=== PATIENT | female | born 1945 | race Caucasian/White ===

== ENCOUNTER → 2016-12-07 | Outpatient (CLI) | payer MEDICARE ==
[2016-12-07 12:03] LABS: EKG EKG PERFORMED
--- NOTE | 2016-12-07 12:13 | XR ---
EXAMINATION TYPE: XR chest 2V DATE OF EXAM: 12/07/2016 11:56 AM COMPARISON: 03/02/2016 INDICATION: Presurgical clearance TECHNIQUE: Single frontal view of the chest is obtained. FINDINGS: The heart size is normal. The pulmonary vasculature is normal. The lungs are clear. IMPRESSION: 1. No acute pulmonary process.
[2016-12-07 12:34] LABS: Appearance,Urine Cloudy (Clear); Bacteria,Urine Rare /hpf; Bilirubin,Urine Negative (Negative); Glucose,Urine (UA) 3+ (Negative); Ketones,Urine Negative (Negative); Leukocyte Esterase,Urine Moderate (Negative); Mucus,Urine Few /hpf; Nitrite,Urine Positive (Negative); Particle Count 27212; Protein,Urine Trace (Negative); RBC,Urine 1 /hpf (0-5); Specific Gravity,Urine 1.023 (1.001-1.035); Squamous Epithelial Cell,Urine 2 /hpf (0-4); UA Billing (MACRO vs. MICRO) MICRO; Urobilinogen,Urine <2.0 mg/dL (<2.0); WBC,Urine 22 /hpf (0-5)
[2016-12-07 12:40] LABS: Partial Thromboplastin Time 24.9 sec (22.0-30.0); Prothrombin Time 10.5 sec (9.0-12.0)
[2016-12-07 12:43] LABS: Basophils # (A) 0.1 k/uL (0-0.2); Basophils % (A) 1 %; CH 31.6; CHCM 32.9; Eosinophils # (A) 0.1 k/uL (0-0.7); Eosinophils % (A) 2 %; HCT 39.8 % (34.0-46.0); HDW 2.25; Luc # (Auto) 0.15; Luc % (Auto) 3; Lymphocytes # (A) 1.4 k/uL (1.0-4.8); Lymphocytes % (A) 29 %; MCH 31.4 pg (25.0-35.0); MCHC 32.6 g/dL (31.0-37.0); MCV 96.5 fL (80.0-100.0); Mean Platelet Volume 6.9; Monocytes # (A) 0.3 k/uL (0-1.0); Monocytes % (A) 6 %; Neutrophils # (A) 2.9 k/uL (1.3-7.7); Neutrophils % (A) 59 %; RBC 4.13 m/uL (3.80-5.40); RDW 12.9 % (11.5-15.5)
[2016-12-07 12:45] LABS: ALT 44 U/L (9-52); AST 28 U/L (14-36); Alkaline Phosphatase 103 U/L (38-126); Anion Gap 9 mmol/L; Blood Urea Nitrogen 23 mg/dL (7-17); Calcium 9.4 mg/dL (8.4-10.2); Carbon Dioxide 28 mmol/L (22-30); Chloride 102 mmol/L (98-107); Glucose 204 mg/dL (74-99); Non-African American GFR(MDRD) >60 (>60 ml/min/1.73 sqM); Potassium 4.5 mmol/L (3.5-5.1); Sodium 139 mmol/L (137-145); Total Bilirubin 0.6 mg/dL (0.2-1.3)
== END ==
LOC: RADXRMAIN 11:32
PROVIDERS: ATTEND Nurse Practitioner
DX: Z01.818 Encounter for other preprocedural examination (principal)
CPT/HCPCS: 36415; 71020; 80053; 81001; 85025; 85610; 85730; 93005

== ENCOUNTER 2017-03-11 21:46 | Emergency (ER) | payer MEDICARE ==
[2017-03-11 21:57] VITALS: RESP 18
[2017-03-11] MEDS ORDERED: HYDROcodone/APAP 5-325MG 1 EACH TAB PO STA (22:14)
--- NOTE | 2017-03-11 22:30 | ED ---
Fall HPI - General Chief Complaint: Fall Stated Complaint: L arm laceration Time Seen by Provider: 03/11/17 21:58 Source: patient Mode of arrival: ambulatory - History of Present Illness Initial Comments: 71-year-old female patient presents to emergency department today for evaluation after she explains a fall around 14:30 this afternoon. Patient is complaining of a laceration to her left elbow that won't stop bleeding, as well as some left shoulder, elbow, and upper back pain. Patient states that she slipped and fell in the shower hitting her elbow on the side of the tub. Patient states that she is achy all over. Patient states she did hit her head but denies any loss of consciousness. Patient denies any headache, dizziness, weakness ,blurred or double vision, neck pain, chest pain, shortness of breath, no pain with breathing, abdominal pain, nausea, or vomiting. Patient denies any loss of bowel or bladder control, saddle paresthesia, numbness or tingling in her legs. Patient did have lumbar surgery on December 14. Patient states she is having some lower back pain but states it is no different than usual. - Related Data Home Medications Medication Instructions Recorded Confirmed Ibuprofen [Motrin] 400 mg PO Q6HR PRN 04/20/14 04/20/14 Levothyroxine Sodium [Synthroid] 88 mcg PO DAILY 04/20/14 04/20/14 Lisinopril [Zestril] 20 mg PO DAILY 04/20/14 04/20/14 Multivitamins, Thera [Multivitamin] 1 each PO DAILY@1200 04/20/14 04/20/14 Oxybutynin Chloride [Ditropan XL] 15 mg PO DAILY 04/20/14 04/20/14 Raloxifene [Evista] 60 mg PO DAILY 04/20/14 04/20/14 glipiZIDE XL [Glucotrol XL] 20 mg PO DAILY 04/20/14 04/20/14 traZODone HCL [Desyrel] 50 mg PO BID 04/20/14 04/20/14 Previous Rx's Medication Instructions Recorded HYDROcodone/APAP 5-325MG [Embarrass 5] 1 each PO Q6HR PRN #10 tab 03/11/17 Allergies Allergy/AdvReac Type Severity Reaction Status Date / Time metformin Allergy Unknown Verified 03/11/17 21:56 Sulfa (Sulfonamide Allergy Anaphylaxis Verified 03/11/17 21:56 Antibiotics) Review of Systems ROS Statement: Those systems with pertinent positive or pertinent negative responses have been documented in the HPI. ROS Other: All systems not noted in ROS Statement are negative. Past Medical History Past Medical History: Diabetes Mellitus, Hyperlipidemia, Hypertension History of Any Multi-Drug Resistant Organisms: None Reported Past Surgical History: Back Surgery Additional Past Surgical History / Comment(s): Tubal ligation Past Psychological History: No Psychological Hx Reported Smoking Status: Never smoker Past Alcohol Use History: None Reported Past Drug Use History: None Reported General Exam Limitations: no limitations General appearance: alert, in no apparent distress Head exam: Present: atraumatic, normocephalic, normal inspection Eye exam: Present: normal appearance, PERRL, EOMI. Absent: scleral icterus, conjunctival injection, periorbital swelling ENT exam: Present: normal exam, mucous membranes moist Neck exam: Present: normal inspection. Absent: tenderness, meningismus, lymphadenopathy Respiratory exam: Present: normal lung sounds bilaterally. Absent: respiratory distress, wheezes, rales, rhonchi, stridor Cardiovascular Exam: Present: regular rate, normal rhythm, normal heart sounds. Absent: systolic murmur, diastolic murmur, rubs, gallop, clicks GI/Abdominal exam: Present: soft, normal bowel sounds. Absent: distended, tenderness, guarding, rebound, rigid Extremities exam: Present: full ROM, tenderness (Left shoulder tenderness, left elbow tenderness.), normal capillary refill. Absent: normal inspection (Linear 2cm laceration noted to the extensor surface of the left elbow), joint swelling Back exam: Present: normal inspection, tenderness (Tenderness noted to the right if the upper thoracic spine) Neurological exam: Present: alert, oriented X3, CN II-XII intact Psychiatric exam: Present: normal affect, normal mood Skin exam: Present: warm, dry, intact, normal color. Absent: rash Course Vital Signs 03/11/17 03/11/17 21:52 23:07 Temperature 98.1 F 97.9 F Pulse Rate 93 74 Respiratory 18 18 Rate Blood Pressure 156/71 149/67 O2 Sat by Pulse 96 96 Oximetry Procedures - Laceration Laceration #1 Consent Obtained: verbal consent Time Out Performed: Yes Indication: laceration Site: upper extremity (Extensor surface of the elbow) Size (cm): 2 Description: linear Depth: simple, single layer Anesthetic Used: lidocaine 1% Anesthesia Technique: local infiltration Amount (mls): 3 Pre-repair: irrigated extensively Type of Sutures: nylon Size of Sutures: 4-0 Number of Sutures: 3 Technique: simple, interrupted Patient Tolerated Procedure: well Medical Decision Making - Medical Decision Making 71-year-old female patient presents to emergency department today for evaluation after a fall in her shower. X-rays of thoracic spine, left shoulder , and left elbow revealed no acute osseous abnormalities. 3 stitches were placed to the laceration her left elbow. Patient instructed regarding wound care. Patient instructed to return for any signs or symptoms of infection. Patient instructed to return for any new, worsening, or concerning symptoms. Patient verbalizes understanding and agrees this plan. - Radiology Data Radiology results: report reviewed, image reviewed Thoracic spine x-ray reveals dextrocardia which are of the midthoracic spine with levocurvature of the thoracolumbar spine. Partially imaged postsurgical changes in the lumbar spine are noted. Vertebral body height and alignment are otherwise maintained. Mild to moderate thoracic spondylosis is noted. Normal osseous mineralization. The visualized lungs are clear. Cardiac silhouette appears enlarged. Aorta appears tortuous. Impression by Dr. Hansen reveals no acute osseous abnormality. 3 views of the left shoulder reveal no acute fracture dislocation. Normal osseous mineralization. Mild glenohumeral osteoporosis. Mouth acromioclavicular osteoarthritis with marked undersurface spurring of the acromion. Subcentimeter osteochondral loose bodies present along the posterior glenohumeral joint. Soft tissue structures are unremarkable. Impression by Dr. Hansen reveals no acute osseous abdomen only. Three-view x-ray of the left elbow reveals negative for fracture dislocation, normal osseous mineralization. No significant joint effusion. Olecranon and the Zofran is noted. Soft tissue swelling posterior elbow is noted. Impression by Dr. Hansen reveals no radiographic evidence of an acute fracture or dislocation. Disposition Clinical Impression: Elbow laceration, Contusion, Fall Disposition: HOME SELF-CARE Condition: Good Instructions: Care For Your Stitches (ED), Laceration (ED), Fall Prevention for Older Adults (ED) Additional Instructions: Apply ice to painful areas. Return in 7-10 days for suture removal. Keep area clean and dry. Do not submerge in water including bath tubs, latex, and pools. Return for any signs or symptoms of infections including but not limited to redness, swelling, drainage of pus, fever, or chills. Follow-up with primary care physician in one to 2 days for recheck. Return for any new, worsening, or concerning symptoms. Prescriptions: HYDROcodone/APAP 5-325MG [Embarrass 5] 1 each PO Q6HR PRN #10 tab PRN Reason: Pain Referrals: Tina Quesada MD [Primary Care Provider] - 1-2 days Time of Disposition: 23:22
--- NOTE | 2017-03-11 23:08 | XR ---
EXAM: Left elbow, 3 views. INDICATION: 71-year-old female with pain. COMPARISON: None. FINDINGS: 3 views of the left elbow are negative for fracture dislocation. Normal osseous mineralization. No significant joint effusion. Olecranon enthesophyte is noted. Soft tissue swelling posterior elbow is noted. IMPRESSION: 1. No radiographic evidence of an acute fracture or dislocation. 2. Soft tissue swelling posterior elbow.
[2017-03-11 23:09] VITALS: BP 149/67; PULSE 74; TEMP 97.9
--- NOTE | 2017-03-11 23:10 | XR ---
EXAM: XR T SPINE INDICATION: 71-year-old female with pain after fall. COMPARISON: None. FINDINGS: 3 views of thoracic spine are negative for fracture dislocation. There is dextrocurvature of the midthoracic spine with levocurvature of the thoracolumbar spine. Partially imaged postsurgical changes in the lumbar spine are noted. Vertebral body height and alignment are otherwise maintained. [id number] thoracic spondylosis is noted. Normal osseous mineralization. The visualized lungs are clear. Cardiac silhouette appears enlarged. Aorta appears tortuous. IMPRESSION: 1. No acute osseous abnormality. 2. Additional findings above.
--- NOTE | 2017-03-11 23:13 | XR ---
EXAM: XR LEFT SHOULDER, 3 views INDICATION: 71-year-old female with pain after fall. COMPARISON: None. FINDINGS: No acute fracture or dislocation. Normal osseous mineralization. Mild glenohumeral osteoporosis. Mild acromioclavicular osteoarthritis with marked undersurface spurring of the acromion. Subcentimeter osteochondral loose bodies present along the posterior glenohumeral joint. Soft tissue structures are unremarkable. IMPRESSION: 1. No acute osseous abnormality. 2. Additional findings above.
== END 2017-03-11 23:45 | disposition home or self-care (01) ==
LOC: EC 21:46
DX: S51.012A Laceration without foreign body of left elbow, initial encounter (principal); M25.512 Pain in left shoulder; M54.6 Pain in thoracic spine; E11.9 Type 2 diabetes mellitus without complications; I10 Essential (primary) hypertension; Z88.2 Allergy status to sulfonamides; Z88.8 Allergy status to other drugs, medicaments and biological substances; Z79.84 Long term (current) use of oral hypoglycemic drugs; Z79.899 Other long term (current) drug therapy; W01.10XA Fall on same level from slipping, tripping and stumbling with subsequent striking against unspecified object, initial encounter; Y93.E1 Activity, personal bathing and showering; Y92.002 Bathroom of unspecified non-institutional (private) residence as the place of occurrence of the external cause
CPT/HCPCS: 12001; 72072; 99283

== ENCOUNTER 2017-05-30 08:07 | Day surgery (SDC) | payer MEDICARE ==
[2017-05-26 13:54] VITALS: BMI 38.9
[~2017-05-30 08:07] MED LIST: LACTATED RINGERS 1,000 ML IV SCH
[2017-05-30 08:36] LABS: Glucose,Whole Blood 292 mg/dL (75-99)
[2017-05-30 08:40] VITALS: TEMP 97.6
[2017-05-30] MEDS ORDERED: LIDOCAINE 1% 20 ML VIAL (10MG/ML) FOR IV START INTRADERMA ONE (08:46)
[2017-05-30] MEDS ORDERED: LABETALOL 5 MG/ML VIAL MDV ONE (09:17)
[2017-05-30] MEDS ORDERED: PROPOFOL 10 MG/ML 20 ML VIAL IV ONE (09:17)
[2017-05-30] MEDS ORDERED: MIDAZOLAM 2 MG/2 ML VIAL ONE (09:17)
[2017-05-30] MEDS ORDERED: LIDOCAINE 1% INJ 10MG/ML (20 ML MDV) ONE (09:17)
--- NOTE | 2017-05-30 09:52 | P.PCN ---
Date of Procedure: 05/30/17 Procedure(s) Performed: Procedure: Colonoscopy and biopsy. Preoperative diagnosis: Screening for neoplasia. Postoperative diagnosis: 1. Sigmoid diverticulosis with no evidence of acute diverticulitis or strictures. 2. Diminutive polyp sigmoid biopsied but no large polyps or cancer. Preparation: HalfLytely prep. Sedation: Was provided by anesthesia. Brief clinical history: The patient is a 71-year-old female who is scheduled for this evaluation for screening for neoplasia. She has no abdominal complaints, bleeding or anemia. No family history of colon cancer. Procedure: With the patient on her left lateral decubitus position and after informed consent and adequate sedation, the perianal area was inspected and it did not show any fissures or fistulas. There were no masses felt on digital rectal examination. The Olympus CFQ 160L video colonoscope was then inserted in the rectum in the usual fashion and advanced to the cecum. There were several diverticular orifices seen scattered in the sigmoid but there was no evidence of acute diverticulitis or strictures. There was a diminutive polyp in the midsigmoid which I biopsied but there were no large polyps or cancer. I retroflexed the endoscope in the rectum before the endoscope was withdrawn. The patient tolerated the procedure well. Plan: The patient was reassured. Discussed dietary measures. She will follow- up with you as planned and I recommended repeat exam in around 5 years.
[2017-05-30 09:54] VITALS: PULSE 83; RESP 20
[2017-05-30 10:28] VITALS: BP 143/85
== END 2017-05-30 10:40 | disposition home or self-care (01) ==
LOC: ORWHC2ENDO 08:07
DX: Z12.11 Encounter for screening for malignant neoplasm of colon (principal); D12.5 Benign neoplasm of sigmoid colon; K57.30 Diverticulosis of large intestine without perforation or abscess without bleeding; I10 Essential (primary) hypertension; E11.9 Type 2 diabetes mellitus without complications; E07.9 Disorder of thyroid, unspecified; Z79.84 Long term (current) use of oral hypoglycemic drugs; Z79.1 Long term (current) use of non-steroidal anti-inflammatories (NSAID); Z79.899 Other long term (current) drug therapy; Z88.2 Allergy status to sulfonamides; Z88.8 Allergy status to other drugs, medicaments and biological substances; Z91.040 Latex allergy status
CPT/HCPCS: 45380; 88305; J2250; J2001; J2704

== ENCOUNTER → 2017-10-26 | Outpatient (CLI) | payer MEDICARE ==
--- NOTE | 2017-10-26 13:54 | BD ---
EXAMINATION TYPE: MG DEXA axial skeleton. DATE OF EXAM: 10/26/2017 CLINICAL HISTORY: Height: 56.5 inches Weight: 170 FRAX RISK QUESTIONS: Alcohol (3 or more units per day): no Family History (Parent hip fracture): Glucocorticoids (More than 3mos): no (Ex: prednisone, prednisolone, methylprednisolone, dexamethasone, and hydrocortisone). History of Fracture in Adulthood: toes Secondary Osteoporosis: 1. Type 1 Diabetes: no, type II 2. Hyperthyroidism: unsure 3. Menopause before 45: at 43 4. Malnutrition: no 5. Chronic liver disease: no Rheumatoid Arthritis: unsure Current Tobacco Use: no RISK FACTORS HISTORY OF: Surgery to Spine: "fusions" with metal hardware lower back... When: within the last year Family History of Osteoporosis: no Active: somewhat Diet low in dairy products/other sources of calcium: no Postmenopausal woman: yes Take estrogen and/or progesterone medications: not now How long: hormonal contraceptives several years Lost more than 2 inches in height since high school: possibly...patient states height was once 4ft 11 1/2 in tall Frequent falls: no; but sometimes feels unsteady Poor Health: somewhat Hyperparathyroidism: no Adrenal Insufficiency: no MEDICATIONS: Prednisone or other steroids: no Thyroid Medications: yes Which medication: Synthroid How Long: over 10 years Osteoporosis Medications: not now Which medication: Evista How Long: "quite a while" Additional Medications: diabetic meds, cholesterol meds, blood pressure meds Additional History: idiopathic scoliosis; lower back surgery, arthritis; history of back pain throug h the years...but did fall last summer EXAM MEASUREMENTS: Bone mineral densitometry was performed using the [employer] System. Bone mineral density NOT measured about the Lumbar spine because of lower back surgery. Bone mineral density about the R hip (g/cm2): 0.773 Bone mineral density about the L hip (g/cm2): 0.761 T Score values are as follows: -----R Neck: -1.9 -----L Neck: -2.0 -----R Total: -0.9 -----L Total: -1.0 Bone mineral density has: Decreased -3.8% since study of: 06/12/2013 IMPRESSION: Osteopenia (T Score between -2.5 and -1). There is slightly increased risk of fracture and the patient may be considered for treatment. Re-Screen 2-5 years. NOTE: T-SCORE=SD OF THE YOUNG ADULT MEAN.
--- NOTE | 2017-11-02 10:12 | MM ---
Reason for exam: screening (asymptomatic). Last mammogram was performed 1 year and 6 months ago. History: Patient is postmenopausal. Physical Findings: A clinical breast exam by your physician is recommended on an annual basis and results should be correlated with mammographic findings. MG Screening Mammo w CAD Bilateral CC and MLO view(s) were taken. Prior study comparison: May 10, 2016, mammogram, performed at [facility]. November 26, 2013, mammogram, performed at [facility]. There are scattered fibroglandular densities. Stable benign calcifications. There is no discrete abnormality. No significant changes when compared with prior studies. ASSESSMENT: Benign, BI-RAD 2 RECOMMENDATION: Routine screening mammogram of both breasts in 1 year.
== END | disposition home or self-care (01) ==
LOC: RADMAMWWP 11:00
PROVIDERS: ATTEND Family Medicine
DX: Z13.820 Encounter for screening for osteoporosis (principal); Z12.31 Encounter for screening mammogram for malignant neoplasm of breast; M85.80 Other specified disorders of bone density and structure, unspecified site; M41.20 Other idiopathic scoliosis, site unspecified
CPT/HCPCS: 77067; 77080

== ENCOUNTER → 2018-12-05 | Outpatient (CLI) | payer MEDICARE ==
--- NOTE | 2018-12-05 09:17 | US ---
EXAMINATION TYPE: US kidneys/renal and bladder DATE OF EXAM: 12/05/2018 COMPARISON: NONE CLINICAL HISTORY: R39.15 Urgency of urination. EXAM MEASUREMENTS: Right Kidney: 10.6 x 5.2 x 4.5 cm Left Kidney: 11.6 x 5.2 x 4.5 cm Post Void Residual Volume: Not sufficiently full to determine mL Right Kidney: No hydronephrosis or masses seen Left Kidney: No hydronephrosis or masses seen Bladder: Not fully distended. No obvious masses or pathology seen. Bilateral Jets seen: Yes Normal Post Void Residual: Unable to determine. There is no evidence for hydronephrosis at this point in time. No nephrolithiasis is seen. No elisha s are identified. The urinary bladder is anechoic but incompletely distended. IMPRESSION: Urinary bladder is incompletely distended and suboptimally evaluated. Given the patient's complaint o f urinary urgency CT urogram could be performed. No hydronephrosis or nephrolithiasis of the kidneys.
== END ==
LOC: RADUSWWP 08:28
PROVIDERS: ATTEND Family Medicine
DX: N32.89 Other specified disorders of bladder (principal)
CPT/HCPCS: 76770

== ENCOUNTER → 2019-01-11 | Outpatient (CLI) | payer MEDICARE ==
[2019-01-11 13:21] LABS: Blood Urea Nitrogen 20 mg/dL (7-17)
--- NOTE | 2019-01-11 14:52 | CT ---
EXAMINATION TYPE: CT urogram wo/w con DATE OF EXAM: 01/11/2019 HISTORY: Incontinence, Chronic UTI CT DLP: 2942mGycm Automated Exposure Control for Dose Reduction was Utilized. CONTRAST: CT scan of the abdomen and pelvis is performed without and with IV Contrast, patient injected with 10 0 ml mL of Isovue 300. COMPARISON: FINDINGS: Lung bases are clear. There is no pleural effusion. Heart size is normal. There is no pericardial eff usion. There is small hiatal hernia. Liver spleen stomach increased gallbladder appear normal. Bile ducts are not dilated. There is no adrenal mass. Noncontrast images show no renal calculus. Kidneys show satisfactory contrast opacification. There is no hydronephrosis. Ureters are not dilated . There are small left-sided renal parapelvic cysts. There is 2 cm cortical cyst posterior right kidn ey. There is no retroperitoneal adenopathy. There is no retroperitoneal adenopathy. There is no evide nce of solid renal mass. Bladder distends smoothly. There is no evidence of bladder mass. There is no evidence of pelvic mass. There are numerous diverticula in the sigmoid colon. I see no sign of diverticulitis. There is no mesenteric edema. There is no free air or ascites. Uterus is anteverted. There is small u mbilical hernia that contains fat. There is no inguinal hernia. There is posterior fusion surgery at L4-5 with metal artifact. There is no lumbar compression fractur e. There is multilevel spondylotic changes in the lumbar spine. There is 6 mm anterior subluxation of L4 in relation L5. IMPRESSION: No evidence of solid renal mass or obstruction. No atrophy seen. Bilateral renal cysts. Moderate sigmoid diverticulosis without diverticulitis. Spondylotic changes in the lumbar spine with first-degree L4-5 spondylolisthesis.
== END | disposition home or self-care (01) ==
LOC: RADCTMAIN 12:46
PROVIDERS: ATTEND Family Medicine
DX: N28.1 Cyst of kidney, acquired (principal); K57.30 Diverticulosis of large intestine without perforation or abscess without bleeding; R32 Unspecified urinary incontinence; Z87.440 Personal history of urinary (tract) infections
CPT/HCPCS: 82565; 84520; 74178; 36415; 74400; Q9967

== ENCOUNTER 2020-02-20 10:59 | Emergency (ER) | payer MEDICARE ==
--- NOTE | 2020-02-20 11:30 | ED ---
Fall HPI - General Chief Complaint: Fall Stated Complaint: Fall Time Seen by Provider: 02/20/20 11:16 Source: patient, RN notes reviewed Mode of arrival: ambulatory Limitations: physical limitation - History of Present Illness Initial Comments: This a 74-year-old female presents emergency Department with chief complaint of a fall. Patient had a mechanical fall, trip and fall 2 days ago. Patient complains of right upper arm, right hand first digit pain, left leg and foot pain. Patient relates minimally at this point states that she gets around occasionally with a walker she's had more frequent falls in which she's been evaluated for. She denies any head injury no loss conscious. Patient denies any chest pain, shortness breath, neck pain, right leg pain. - Related Data Home Medications Medication Instructions Recorded Confirmed Multivitamins, Thera [Multivitamin 1 tab PO DAILY 04/20/14 02/20/20 (formulary)] Insulin Glargine,Hum.rec.anlog 33 unit SQ DAILY 06/21/18 02/20/20 [Lantus Solostar] Lisinopril 40 mg PO DAILY 06/21/18 02/20/20 Pioglitazone [Actos] 45 mg PO DAILY 06/21/18 02/20/20 Simvastatin [Zocor] 20 mg PO HS 06/21/18 02/20/20 traZODone HCL [Desyrel] 25 mg PO HS 06/21/18 02/20/20 Donepezil [Aricept] 5 mg PO DAILY 02/20/20 02/20/20 FLUoxetine HCL [PROzac] 40 mg PO DAILY 02/20/20 02/20/20 Levothyroxine Sodium [Synthroid] 112 mcg PO DAILY 02/20/20 02/20/20 Memantine [Namenda] 10 mg PO BID 02/20/20 02/20/20 buPROPion HCL [Wellbutrin SR] 200 mg PO BID 02/20/20 02/20/20 glipiZIDE [Glucotrol] 20 mg PO AC-BID 02/20/20 02/20/20 Allergies Allergy/AdvReac Type Severity Reaction Status Date / Time latex Allergy Rash/Hives Verified 02/20/20 11:46 metformin Allergy Rash/Hives Verified 02/20/20 11:46 Sulfa (Sulfonamide Allergy Anaphylaxis Verified 02/20/20 11:46 Antibiotics) Review of Systems ROS Statement: Those systems with pertinent positive or pertinent negative responses have been documented in the HPI. ROS Other: All systems not noted in ROS Statement are negative. Past Medical History Past Medical History: Diabetes Mellitus, Hypertension, Thyroid Disorder Additional Past Medical History / Comment(s): URINARY INCONTINENCE, "cognitive decline" History of Any Multi-Drug Resistant Organisms: None Reported Past Surgical History: Back Surgery, Tubal Ligation Additional Past Surgical History / Comment(s): Tubal ligation Past Anesthesia/Blood Transfusion Reactions: No Reported Reaction Past Psychological History: No Psychological Hx Reported Smoking Status: Former smoker Past Alcohol Use History: Rare Past Drug Use History: None Reported - Past Family History Father Family Medical History: Cancer General Exam Limitations: no limitations General appearance: alert, in no apparent distress Head exam: Present: atraumatic, normocephalic, normal inspection Eye exam: Present: normal appearance, PERRL, EOMI. Absent: scleral icterus, conjunctival injection, periorbital swelling ENT exam: Present: normal exam, normal oropharynx, mucous membranes moist, TM's normal bilaterally Neck exam: Present: normal inspection, full ROM. Absent: tenderness, meningismus, lymphadenopathy Respiratory exam: Present: normal lung sounds bilaterally. Absent: respiratory distress, wheezes, rales, rhonchi, stridor Cardiovascular Exam: Present: regular rate, normal rhythm, normal heart sounds. Absent: systolic murmur, diastolic murmur, rubs, gallop, clicks Extremities exam: Present: other (Right shoulder there is mild tenderness slight decreased range of motion right arm is neurovascularly intact there is some swelling, ecchymosis to the second digit, patient does have full range of motion no tenderness of the wrist or proximal hand region left arm brace noted to left forearm otherwise neurovascular intact full range of motion tenderness to left proximal tib-fib and left foot neurovascular intact lower extremities there is moderate pedal edema which was reported chronic in nature no signs of infection open wounds.) Neurological exam: Present: alert, oriented X3, CN II-XII intact, reflexes normal. Absent: motor sensory deficit Skin exam: Present: warm, dry, intact, normal color. Absent: rash Course Vital Signs 02/20/20 11:08 Temperature 98.2 F Pulse Rate 86 Respiratory 18 Rate Blood Pressure 134/79 O2 Sat by Pulse 96 Oximetry Medical Decision Making - Medical Decision Making 74-year-old female presented for a fall x-rays reviewed and read by radiologist with no acute changes. Patient has arthritic changes, osteopenia changes. Patient will be discharged with close follow-up return parameters were discussed. Disposition Clinical Impression: Fall, Contusion of finger of right hand, Contusion of left leg Disposition: HOME SELF-CARE Condition: Stable Instructions (If sedation given, give patient instructions): Fall Prevention for Older Adults (ED), Contusion in Adults (ED) Additional Instructions: Please return to the Emergency Department if symptoms worsen or any other concerns. Is patient prescribed a controlled substance at d/c from ED?: No Referrals: Tina Quesada MD [Primary Care Provider] - 1-2 days Time of Disposition: 12:37
--- NOTE | 2020-02-20 12:20 | XR ---
EXAMINATION TYPE: XR humerus 2 views LT, XR hand complete 3 views RT DATE OF EXAM: 02/20/2020 COMPARISON: NONE HISTORY: 74-year-old female with arm and thumb pain. FINDINGS: Left humerus: Moderate degenerative change at the AC joint with joint space narrowing. No humeral sha ft fracture. No elbow joint effusion. Right hand: Moderate to severe degenerative change first CMC joint and moderate at the triscaphe join t. Osteopenia. Additional scattered moderate degenerative change along the DIP joints. No acute fract ure, subluxation or dislocation seen. IMPRESSION: 1. Left humerus: Moderate AC joint OA. No humeral shaft fracture seen. No elbow joint effusion. 2. Right hand: Moderate to severe OA at the base of the thumb. Additional osteoarthritic changes in t he DIP joints of the fingers.
--- NOTE | 2020-02-20 12:24 | XR ---
EXAMINATION TYPE: XR tibia fibula 2 views LT, XR foot complete 3 views LT DATE OF EXAM: 02/20/2020 COMPARISON: NONE HISTORY: 74-year-old female with pain FINDINGS: Tibia/fibula: Degenerative spurring and joint space narrowing medial compartment. Obliquity limits assessment of th e extensor mechanism of the knee and also for underlying knee joint effusion. Moderate-sized plantar calcaneal spur. No tibial or fibular shaft fracture identified. Ankle articulation grossly intact. Left foot: Osteopenia. No acute fracture, subluxation, or dislocation. Moderate-sized plantar calcaneal spur. Mi ld soft tissue swelling. IMPRESSION: 1. Left tibia/fibula: There seems to be some underlying osteoarthrosis of the medial compartment of t he knee. Obliquity on the lateral view does not allow for assessment of the knee extensor mechanism o r for underlying knee joint effusion. No acute osseous abnormality seen. 2. Left foot: Osteopenia. Moderate size plantar calcaneal spur. No acute osseous abnormality seen.
[2020-02-21 10:06] VITALS: BP 159/79; PULSE 71; RESP 16; TEMP 98.2
== END 2020-02-20 13:07 | disposition home or self-care (01) ==
LOC: EC 10:59
DX: S80.12XA Contusion of left lower leg, initial encounter (principal); S60.022A Contusion of left index finger without damage to nail, initial encounter; M19.012 Primary osteoarthritis, left shoulder; M19.041 Primary osteoarthritis, right hand; M85.872 Other specified disorders of bone density and structure, left ankle and foot; M25.511 Pain in right shoulder; E11.9 Type 2 diabetes mellitus without complications; I10 Essential (primary) hypertension; E07.9 Disorder of thyroid, unspecified; Z79.4 Long term (current) use of insulin; Z79.890 Hormone replacement therapy; Z79.899 Other long term (current) drug therapy; Z88.2 Allergy status to sulfonamides; Z91.040 Latex allergy status; Z88.8 Allergy status to other drugs, medicaments and biological substances; Z87.891 Personal history of nicotine dependence; W01.0XXA Fall on same level from slipping, tripping and stumbling without subsequent striking against object, initial encounter; Y92.009 Unspecified place in unspecified non-institutional (private) residence as the place of occurrence of the external cause
CPT/HCPCS: 99283

== ENCOUNTER 2021-06-12 13:25 | Observation (INO) | payer MEDICARE ==
[2021-06-12 13:57] LABS: Glucose,Whole Blood 107 mg/dL (75-99)
--- NOTE | 2021-06-12 14:10 | ED ---
General Adult HPI - General Chief complaint: Dizziness Stated complaint: Back Pain Time Seen by Provider: 06/12/21 13:30 Source: patient, family Mode of arrival: wheelchair Limitations: no limitations - History of Present Illness Initial comments: 75-year-old female past medical history of diabetes, hypertension, cognitive disorder presents to the emergency department with multiple falls and altered mental status. provides the history. States the patient has had several falls in the past couple of weeks. She fell last week and hurt her krista mbar spine. She is not evaluated and has had difficulties with ambulation due to the pain. Today the patient was getting out of the shower when she had a fall. She did hit the back of her head. Unsure if she lost consciousness. She is not any blood thinners. Denies a headache or neck pain. Continues to complain of a low back pain. feels as if she is not at her normal baseline. States that she seems a little bit slowed comparison. She denies any chest pain or shortness of breath. No visual changes. No unilateral numbness or weakness. No other alleviating, precipitating or modifying factors - Related Data Home Medications Medication Instructions Recorded Confirmed Insulin Glargine,Hum.rec.anlog 35 unit SQ DAILY 06/21/18 06/12/21 [Lantus Solostar Pen] Pioglitazone [Actos] 45 mg PO DAILY 06/21/18 06/12/21 Simvastatin [Zocor] 20 mg PO HS 06/21/18 06/12/21 traZODone HCL [Desyrel] 25 mg PO HS 06/21/18 06/12/21 FLUoxetine HCL [PROzac] 40 mg PO DAILY 02/20/20 06/12/21 Memantine [Namenda] 10 mg PO BID 02/20/20 06/12/21 buPROPion HCL [Wellbutrin SR] 200 mg PO BID 02/20/20 06/12/21 glipiZIDE [Glucotrol] 10 mg PO BID 02/20/20 06/12/21 Donepezil HCl [Aricept] 10 mg PO DAILY 06/12/21 06/12/21 Furosemide [Lasix] 40 mg PO BID 06/12/21 06/12/21 Levothyroxine Sodium [Synthroid] 125 mcg PO DAILY 06/12/21 06/12/21 Losartan Potassium [Cozaar] 100 mg PO DAILY 06/12/21 06/12/21 Mirabegron [Myrbetriq] 50 mg PO DAILY 06/12/21 06/12/21 Previous Rx's Medication Instructions Recorded Cephalexin [Keflex] 500 mg PO Q12HR 14 Days #7 cap 06/16/21 INSULIN ASPART (NovoLOG) [NovoLOG 0 unit SQ ACHS ml 06/16/21 (formulary)] Allergies Allergy/AdvReac Type Severity Reaction Status Date / Time latex Allergy Rash/Hives Verified 06/12/21 13:28 metformin Allergy Rash/Hives Verified 06/12/21 13:28 Sulfa (Sulfonamide Allergy Anaphylaxis Verified 06/12/21 13:28 Antibiotics) Review of Systems ROS Statement: Those systems with pertinent positive or pertinent negative responses have been documented in the HPI. ROS Other: All systems not noted in ROS Statement are negative. Past Medical History Past Medical History: Diabetes Mellitus, Hypertension, Thyroid Disorder Additional Past Medical History / Comment(s): URINARY INCONTINENCE, "cognitive disorder" History of Any Multi-Drug Resistant Organisms: None Reported Past Surgical History: Back Surgery, Tubal Ligation Additional Past Surgical History / Comment(s): Tubal ligation Past Anesthesia/Blood Transfusion Reactions: No Reported Reaction Past Psychological History: No Psychological Hx Reported Smoking Status: Never smoker Past Alcohol Use History: None Reported Past Drug Use History: None Reported - Past Family History Father Family Medical History: Cancer General Exam Limitations: altered mental status (dementia) General appearance: alert, in no apparent distress Head exam: Present: atraumatic, normocephalic, normal inspection Eye exam: Present: normal appearance, PERRL, EOMI. Absent: scleral icterus, conjunctival injection, periorbital swelling ENT exam: Present: normal exam, mucous membranes moist Neck exam: Present: normal inspection. Absent: tenderness, meningismus, lymphadenopathy Respiratory exam: Present: normal lung sounds bilaterally. Absent: respiratory distress, wheezes, rales, rhonchi, stridor Cardiovascular Exam: Present: regular rate, normal rhythm, normal heart sounds. Absent: systolic murmur, diastolic murmur, rubs, gallop, clicks GI/Abdominal exam: Present: soft, normal bowel sounds. Absent: distended, tende rness, guarding, rebound, rigid Extremities exam: Present: normal inspection, full ROM, normal capillary refill, pedal edema. Absent: tenderness, joint swelling, calf tenderness Back exam: Present: normal inspection Neurological exam: Present: alert, oriented X3, CN II-XII intact Psychiatric exam: Present: normal affect, normal mood Skin exam: Present: warm, dry, intact, normal color. Absent: rash Course Vital Signs 06/12/21 06/12/21 06/12/21 13:29 16:53 20:00 Temperature 97.8 F 98.8 F Pulse Rate 93 98 Pulse Rate [ 99 Right] Respiratory 20 16 16 Rate Blood Pressure 158/83 171/76 Blood Pressure 176/78 [Left Arm] O2 Sat by Pulse 97 97 97 Oximetry 06/12/21 20:29 Temperature Pulse Rate 90 Pulse Rate [ Right] Respiratory 18 Rate Blood Pressure 169/88 Blood Pressure [Left Arm] O2 Sat by Pulse 98 Oximetry EKG Findings - EKG Comments: EKG Findings:: EKG demonstrates normal sinus rhythm with a ventricular rate of 93. WI interval 142. QRS 88. QTC of 489. No acute ST segment elevations or depressions concerning for ischemic changes Medical Decision Making - Medical Decision Making Upon arrival patient is placed in trauma 1. Thorough history and physical exam was performed. IV is established laboratory studies were conducted. Laboratory studies are reviewed and within normal limits. Patient does go over for a CT of her brain, cervical spine and lumbar spine. CT of the brain demonstrates cerebral atrophy with no acute intracranial abnormality. Not changed from previous. CT of the cervical spine demonstrates no acute fractures. CT of the lumbar spine demonstrates multilevel spondylitic changes with vacuum disc. No compression fractures. Chest x-ray demonstrates no active cardio pulmonary disease. I did speak with the patient's . He states that the patient is altered and unable to ambulate due to her back pain. He does not feel comfortable taking the patient home and thinks she may need rehab. I did call and speak with Dr. Rubio who agreed to admit the patient. Patient remained in stable condition awaiting a bed - Lab Data Result diagrams: 06/16/21 05:47 06/16/21 05:47 Lab Results 06/12/21 06/12/21 06/12/21 Range/Units 13:56 14:01 14:01 WBC 7.6 (3.8-10.6) k/uL RBC 3.82 (3.80-5.40) m/uL Hgb 12.4 (11.4-16.0) gm/dL Hct 37.4 (34.0-46.0) % MCV 97.8 (80.0-100.0) fL MCH 32.4 (25.0-35.0) pg MCHC 33.2 (31.0-37.0) g/dL RDW 13.0 (11.5-15.5) % Plt Count 314 (150-450) k/uL MPV 7.3 Neutrophils % 78 % Lymphocytes % 12 % Monocytes % 5 % Eosinophils % 3 % Basophils % 1 % Neutrophils # 5.9 (1.3-7.7) k/uL Lymphocytes # 0.9 L (1.0-4.8) k/uL Monocytes # 0.4 (0-1.0) k/uL Eosinophils # 0.2 (0-0.7) k/uL Basophils # 0.1 (0-0.2) k/uL PT 10.3 (9.0-12.0) sec INR 1.0 (<1.2) APTT 24.1 (22.0-30.0) sec Sodium (137-145) mmol/L Potassium (3.5-5.1) mmol/L Chloride (98-107) mmol/L Carbon Dioxide (22-30) mmol/L Anion Gap mmol/L BUN (7-17) mg/dL Creatinine (0.52-1.04) mg/dL Est GFR (CKD-EPI)AfAm (>60 ml/min/1.73 sqM) Est GFR (CKD-EPI)NonAf (>60 ml/min/1.73 sqM) Glucose (74-99) mg/dL POC Glucose (mg/dL) 107 H (75-99) mg/dL POC Glu Overnight Houseperson ID Medhat Cedeño Plasma Lactic Acid Kg (0.7-2.0) mmol/L Calcium (8.4-10.2) mg/dL Total Bilirubin (0.2-1.3) mg/dL AST (14-36) U/L ALT (4-34) U/L Alkaline Phosphatase (38-126) U/L Creatine Kinase (30-135) U/L Troponin I (0.000-0.034) ng/mL NT-Pro-B Natriuret Pep pg/mL Total Protein (6.3-8.2) g/dL Albumin (3.5-5.0) g/dL TSH (0.465-4.680) mIU/L Urine Color Urine Appearance (Clear) Urine pH (5.0-8.0) Ur Specific Beggs (1.001-1.035) Urine Protein (Negative) Urine Glucose (UA) (Negative) Urine Ketones (Negative) Urine Blood (Negative) Urine Nitrite (Negative) Urine Bilirubin (Negative) Urine Urobilinogen (<2.0) mg/dL Ur Leukocyte Esterase (Negative) Urine RBC (0-5) /hpf Urine WBC (0-5) /hpf Ur Squamous Epith Cells (0-4) /hpf Urine Bacteria (None) /hpf Hyaline Casts (0-2) /lpf 06/12/21 06/12/21 06/12/21 Range/Units 14:01 14:01 14:01 WBC (3.8-10.6) k/uL RBC (3.80-5.40) m/uL Hgb (11.4-16.0) gm/dL Hct (34.0-46.0) % MCV (80.0-100.0) fL MCH (25.0-35.0) pg MCHC (31.0-37.0) g/dL RDW (11.5-15.5) % Plt Count (150-450) k/uL MPV Neutrophils % % Lymphocytes % % Monocytes % % Eosinophils % % Basophils % % Neutrophils # (1.3-7.7) k/uL Lymphocytes # (1.0-4.8) k/uL Monocytes # (0-1.0) k/uL Eosinophils # (0-0.7) k/uL Basophils # (0-0.2) k/uL PT (9.0-12.0) sec INR (<1.2) APTT (22.0-30.0) sec Sodium 140 (137-145) mmol/L Potassium 4.1 (3.5-5.1) mmol/L Chloride 101 (98-107) mmol/L Carbon Dioxide 33 H (22-30) mmol/L Anion Gap 6 mmol/L BUN 21 H (7-17) mg/dL Creatinine 0.85 (0.52-1.04) mg/dL Est GFR (CKD-EPI)AfAm 77 (>60 ml/min/1.73 sqM) Est GFR (CKD-EPI)NonAf 67 (>60 ml/min/1.73 sqM) Glucose 111 H (74-99) mg/dL POC Glucose (mg/dL) (75-99) mg/dL POC Glu Overnight Houseperson ID Plasma Lactic Acid Kg 1.1 (0.7-2.0) mmol/L Calcium 9.0 (8.4-10.2) mg/dL Total Bilirubin 0.4 (0.2-1.3) mg/dL AST 31 (14-36) U/L ALT 29 (4-34) U/L Alkaline Phosphatase 128 H (38-126) U/L Creatine Kinase 66 (30-135) U/L Troponin I (0.000-0.034) ng/mL NT-Pro-B Natriuret Pep pg/mL Total Protein 6.5 (6.3-8.2) g/dL Albumin 3.4 L (3.5-5.0) g/dL TSH 4.280 (0.465-4.680) mIU/L Urine Color Yellow Urine Appearance Cloudy H (Clear) Urine pH 6.5 (5.0-8.0) Ur Specific Beggs 1.017 (1.001-1.035) Urine Protein Trace H (Negative) Urine Glucose (UA) Negative (Negative) Urine Ketones Trace H (Negative) Urine Blood Negative (Negative) Urine Nitrite Positive H (Negative) Urine Bilirubin Negative (Negative) Urine Urobilinogen <2.0 (<2.0) mg/dL Ur Leukocyte Esterase Negative (Negative) Urine RBC <1 (0-5) /hpf Urine WBC 4 (0-5) /hpf Ur Squamous Epith Cells 3 (0-4) /hpf Urine Bacteria Many H (None) /hpf Hyaline Casts 10 H (0-2) /lpf 06/12/21 06/12/21 Range/Units 14:01 14:01 WBC (3.8-10.6) k/uL RBC (3.80-5.40) m/uL Hgb (11.4-16.0) gm/dL Hct (34.0-46.0) % MCV (80.0-100.0) fL MCH (25.0-35.0) pg MCHC (31.0-37.0) g/dL RDW (11.5-15.5) % Plt Count (150-450) k/uL MPV Neutrophils % % Lymphocytes % % Monocytes % % Eosinophils % % Basophils % % Neutrophils # (1.3-7.7) k/uL Lymphocytes # (1.0-4.8) k/uL Monocytes # (0-1.0) k/uL Eosinophils # (0-0.7) k/uL Basophils # (0-0.2) k/uL PT (9.0-12.0) sec INR (<1.2) APTT (22.0-30.0) sec Sodium (137-145) mmol/L Potassium (3.5-5.1) mmol/L Chloride (98-107) mmol/L Carbon Dioxide (22-30) mmol/L Anion Gap mmol/L BUN (7-17) mg/dL Creatinine (0.52-1.04) mg/dL Est GFR (CKD-EPI)AfAm (>60 ml/min/1.73 sqM) Est GFR (CKD-EPI)NonAf (>60 ml/min/1.73 sqM) Glucose (74-99) mg/dL POC Glucose (mg/dL) (75-99) mg/dL POC Glu Overnight Houseperson ID Plasma Lactic Acid Kg (0.7-2.0) mmol/L Calcium (8.4-10.2) mg/dL Total Bilirubin (0.2-1.3) mg/dL AST (14-36) U/L ALT (4-34) U/L Alkaline Phosphatase (38-126) U/L Creatine Kinase (30-135) U/L Troponin I <0.012 (0.000-0.034) ng/mL NT-Pro-B Natriuret Pep 371 pg/mL Total Protein (6.3-8.2) g/dL Albumin (3.5-5.0) g/dL TSH (0.465-4.680) mIU/L Urine Color Urine Appearance (Clear) Urine pH (5.0-8.0) Ur Specific Beggs (1.001-1.035) Urine Protein (Negative) Urine Glucose (UA) (Negative) Urine Ketones (Negative) Urine Blood (Negative) Urine Nitrite (Negative) Urine Bilirubin (Negative) Urine Urobilinogen (<2.0) mg/dL Ur Leukocyte Esterase (Negative) Urine RBC (0-5) /hpf Urine WBC (0-5) /hpf Ur Squamous Epith Cells (0-4) /hpf Urine Bacteria (None) /hpf Hyaline Casts (0-2) /lpf Disposition Clinical Impression: Multiple falls, Concussion, Altered mental status Disposition: ADMITTED IP TO THIS [facility] Condition: Stable Is patient prescribed a controlled substance at d/c from ED?: No Decision to Admit Reason: Admit from EC Decision Date: 06/12/21 Decision Time: 15:36
[2021-06-12 14:12] LABS: Basophils # (A) 0.1 k/uL (0-0.2); Basophils % (A) 1 %; Eosinophils # (A) 0.2 k/uL (0-0.7); Eosinophils % (A) 3 %; HCT 37.4 % (34.0-46.0); HGB 12.4 gm/dL (11.4-16.0); Lymphocytes # (A) 0.9 k/uL (1.0-4.8); Lymphocytes % (A) 12 %; MCH 32.4 pg (25.0-35.0); MCHC 33.2 g/dL (31.0-37.0); MCV 97.8 fL (80.0-100.0); Mean Platelet Volume 7.3; Monocytes # (A) 0.4 k/uL (0-1.0); Monocytes % (A) 5 %; Neutrophils # (A) 5.9 k/uL (1.3-7.7); Neutrophils % (A) 78 %; Platelet Count 314 k/uL (150-450); RBC 3.82 m/uL (3.80-5.40); WBC 7.6 k/uL (3.8-10.6)
[2021-06-12 14:22] LABS: Albumin 3.4 g/dL (3.5-5.0); Total Bilirubin 0.4 mg/dL (0.2-1.3); Total Protein 6.5 g/dL (6.3-8.2)
[2021-06-12 14:24] LABS: Potassium 4.1 mmol/L (3.5-5.1)
[2021-06-12 14:31] LABS: Partial Thromboplastin Time 24.1 sec (22.0-30.0); Prothrombin Time 10.3 sec (9.0-12.0)
--- NOTE | 2021-06-12 15:05 | CT ---
EXAMINATION TYPE: CT brain miguel wo con DATE OF EXAM: 06/12/2021 COMPARISON: 06/21/2018 HISTORY: fall CT DLP: 1479.4 mGycm Automated exposure control for dose reduction was used. There is cerebral cortical atrophy. There is no mass effect nor midline shift. There is no sign of in tracranial hemorrhage. The calvarium is intact. Skull base is intact. There is normal aeration of the mastoid sinuses. The cervical vertebra have normal alignment. There is mild degenerative disc space narrowing at C5-6 and C6-7 with spurring of the endplates. Facet joints are intact. There is mild hypertrophic facet ar thropathy. IMPRESSION: Mild spondylotic changes in the cervical spine. No fracture. Cerebral atrophy. No acute intracranial abnormality. Brain is not changed compared to old exam.
--- NOTE | 2021-06-12 15:08 | CT ---
EXAMINATION TYPE: CT lumbar spine wo con DATE OF EXAM: 06/12/2021 COMPARISON: CT scan 01/11/2019 HISTORY: back pain following fall CT DLP: 2073.6 mGycm Automated exposure control for dose reduction was used. Images obtained from the level of T12-S3 vertebra with no contrast. There is a mild thoracolumbar levoscoliosis. There is posterior fusion surgery with rods and screws a t L4-5. There is degenerative disc space narrowing throughout the lumbar spine. There is no significa nt compression deformity. There is a mild first-degree L4-5 spondylolisthesis. There is hypertrophic multilevel lumbar facet arthropathy. Sacroiliac joints are intact. There is no lumbar paraspinal mass . I see no focal bone destruction. IMPRESSION: Multilevel spondylotic changes with vacuum disc. No compression fracture. Lumbar spine is stable comp ared to old exam.
--- NOTE | 2021-06-12 15:10 | XR ---
EXAMINATION TYPE: XR chest 2V DATE OF EXAM: 06/12/2021 COMPARISON: 06/21/2018 HISTORY: Weakness TECHNIQUE: 2 views FINDINGS: There is no heart failure nor confluent pneumonic infiltrate. Costophrenic angles are clear . There are no hilar masses. There are chest leads. Bony thorax is intact. IMPRESSION: No active cardiopulmonary disease. No change.
[2021-06-12] MEDS ORDERED: NALOXONE 0.4 MG/ML 1 ML VIAL IV PRN (15:37)
[2021-06-12 16:14] LABS: Appearance,Urine Cloudy (Clear); Bacteria,Urine Many /hpf; Bilirubin,Urine Negative (Negative); Blood,Urine Negative (Negative); Color,Urine Yellow; Glucose,Urine (UA) Negative (Negative); Hyaline Casts,Urine 10 /lpf (0-2); Ketones,Urine Trace (Negative); Leukocyte Esterase,Urine Negative (Negative); Nitrite,Urine Positive (Negative); PH, Urine 6.5 (5.0-8.0); Protein,Urine Trace (Negative); RBC,Urine <1 /hpf (0-5); Specific Gravity,Urine 1.017 (1.001-1.035); Squamous Epithelial Cell,Urine 3 /hpf (0-4); Urobilinogen,Urine <2.0 mg/dL (<2.0); WBC,Urine 4 /hpf (0-5)
[2021-06-12 21:28] LABS: Glucose,Whole Blood 74 mg/dL (75-99)
[2021-06-13] MEDS: LEVOTHYROXINE 125 MCG TAB PO SCH (06:11)
[2021-06-13 07:05] LABS: Glucose,Whole Blood 139 mg/dL (75-99)
[2021-06-13] MEDS ORDERED: ACETAMINOPHEN TAB 325 MG TAB PO PRN (09:20)
[2021-06-13] MEDS: INSULIN DETEMIR (LEVEMIR) 100 UNIT/ML SYR SQ SCH (09:23)
[2021-06-13] MEDS: buPROPion SR 100 MG TABLET.ER PO SCH ×2 (09:24→22:15)
[2021-06-13] MEDS: LOSARTAN 50 MG TAB PO SCH (09:24)
[2021-06-13] MEDS: DONEPEZIL 10 MG TAB PO SCH (09:25)
[2021-06-13] MEDS: glipiZIDE 10 MG TAB PO SCH ×2 (09:25→21:50)
[2021-06-13] MEDS: PIOGLITAZONE 45 MG TAB PO SCH (09:25)
[2021-06-13] MEDS: FUROSEMIDE 40 MG TAB PO SCH ×2 (09:25→21:51)
[2021-06-13] MEDS: FLUoxetine HCL 20 MG CAP PO SCH (09:25)
[2021-06-13] MEDS: MEMANTINE 10 MG TAB PO SCH ×2 (09:25→21:50)
[2021-06-13] MEDS: NON FORMULARY DRUG (Mirabegron [Myrbetriq] 50 MG Tablet) PO SCH (09:31)
--- NOTE | 2021-06-13 10:00 | P.HPIM ---
History of Present Illness H&P Date: 06/12/21 Shiloh Hampton, is a 75-year-old female who presented to [facility] emergency room with a chief complaint of acute mental status changes with multiple falls. Patient appears to be a poor historian history is obtained from ER report no family at bedside. According to the ER records states that patient has fallen multiple times in the past couple weeks. Patient apparently fell and hurt her lumbar spine and had some difficulties with ambulation. Patient reports that she was getting out of the shower and she fell again. Patient did hit the back of her head. Laboratory data reveals patient positive for UTI. Coban negative. All other lab work unremarkable Testing in the emergency room revealed. Head and cervical spine CT completed showing mild spondylitic changes in the cervical spine fracture. Cerebral atrophy. No acute intracranial abnormality. Brain is not change compared to old exam. Lumbar spine completed showing multilevel spondylitic changes with v acuum discs no compression fracture lumbar spine is stable compared to old exam. Chest x-ray completed showing no active cardiopulmonary disease no change. Patient was admitted to medical floor for further evaluation and treatment Past medical history is significant for diabetes mellitus, hypertension, thyroid disorder, cognitive disorder. On review of systems patient is alert and oriented with intermittent episodes of confusion and poor historian. Patient denies any acute complaints. Unable to recall falls. Patient does have equal strength throughout all extremities Review of Systems Please refer to HPI otherwise unremarkable Past Medical History Past Medical History: Diabetes Mellitus, Hypertension, Thyroid Disorder Additional Past Medical History / Comment(s): URINARY INCONTINENCE, "cognitive disorder" History of Any Multi-Drug Resistant Organisms: None Reported Past Surgical History: Back Surgery, Tubal Ligation Additional Past Surgical History / Comment(s): Tubal ligation Past Anesthesia/Blood Transfusion Reactions: No Reported Reaction Past Psychological History: No Psychological Hx Reported Smoking Status: Never smoker Past Alcohol Use History: None Reported Past Drug Use History: None Reported - Past Family History Father Family Medical History: Cancer Medications and Allergies Home Medications Medication Instructions Recorded Confirmed Type Insulin Glargine,Hum.rec.anlog 35 unit SQ DAILY 06/21/18 06/12/21 History [Lantus Solostar Pen] Pioglitazone [Actos] 45 mg PO DAILY 06/21/18 06/12/21 History Simvastatin [Zocor] 20 mg PO HS 06/21/18 06/12/21 History traZODone HCL [Desyrel] 25 mg PO HS 06/21/18 06/12/21 History FLUoxetine HCL [PROzac] 40 mg PO DAILY 02/20/20 06/12/21 History Memantine [Namenda] 10 mg PO BID 02/20/20 06/12/21 History buPROPion HCL [Wellbutrin SR] 200 mg PO BID 02/20/20 06/12/21 History glipiZIDE [Glucotrol] 10 mg PO BID 02/20/20 06/12/21 History Donepezil HCl [Aricept] 10 mg PO DAILY 06/12/21 06/12/21 History Furosemide [Lasix] 40 mg PO BID 06/12/21 06/12/21 History Levothyroxine Sodium [Synthroid] 125 mcg PO DAILY 06/12/21 06/12/21 History Losartan Potassium [Cozaar] 100 mg PO DAILY 06/12/21 06/12/21 History Mirabegron [Myrbetriq] 50 mg PO DAILY 06/12/21 06/12/21 History Allergies Allergy/AdvReac Type Severity Reaction Status Date / Time latex Allergy Rash/Hives Verified 06/12/21 13:28 metformin Allergy Rash/Hives Verified 06/12/21 13:28 Sulfa (Sulfonamide Allergy Anaphylaxis Verified 06/12/21 13:28 Antibiotics) Physical Exam Vitals: Vital Signs Temp Pulse Resp BP Pulse Ox 06/12/21 13:29 97.8 F 93 20 158/83 97 Intake and Output 06/12/21 06/12/21 06/12/21 06:59 14:59 22:59 Other: Weight 108.862 kg In general patient is alert, confused in no apparent distress HEENT head normocephalic and atraumatic Neck is supple no JVD no goiter no lymphadenopathy no carotid bruit Chest examination is clear to auscultation no crackles no wheezing Cardiac exam reveals regular heart sounds S1 and S2 no gallops no murmurs Abdomen is soft nontender no organomegaly with normal bowel sounds Extremity exam reveals no edema no cyanosis or clubbing Neurological examination reveals no gross focal deficits Results CBC & Chem 7: 06/12/21 14:01 06/12/21 14:01 Labs: Abnormal Lab Results - Last 24 Hours (Table) 06/12/21 06/12/21 06/12/21 Range/Units 13:56 14:01 14:01 Lymphocytes # 0.9 L (1.0-4.8) k/uL Carbon Dioxide 33 H (22-30) mmol/L BUN 21 H (7-17) mg/dL Glucose 111 H (74-99) mg/dL POC Glucose (mg/dL) 107 H (75-99) mg/dL Alkaline Phosphatase 128 H (38-126) U/L Albumin 3.4 L (3.5-5.0) g/dL Assessment and Plan Plan: 1. Multiple falls at home 2. Urine tract infection 3. Cognitive disorder 4. Diabetes mellitus 5. Essential hypertension 6. Thyroid disorder DVT prophylaxis Lovenox. GI prophylaxis Protonix PT OT and social work service is consulted Continue IV Rocephin for urinary tract infection urine culture pending Repeat labs ordered Time with Patient: Greater than 30 (Greater than 60% of the total time spent in counseling and coordination of care)
--- NOTE | 2021-06-13 10:17 | P.PN ---
Subjective Progress Note Date: 06/13/21 Shiloh Hampton, is a 75-year-old female who presented to [facility] emergency room with a chief complaint of acute mental status changes with multiple falls. Patient appears to be a poor historian history is obtained from ER report no family at bedside. According to the ER records states that patient has fallen multiple times in the past couple weeks. Patient apparently fell and hurt her lumbar spine and had some difficulties with ambulation. Patient reports that she was getting out of the shower and she fell again. Patient did hit the back of her head. Laboratory data reveals patient positive for UTI. Coban negative. All other lab work unremarkable Testing in the emergency room revealed. Head and cervical spine CT completed showing mild spondylitic changes in the cervical spine fracture. Cerebral atrophy. No acute intracranial abnormality. Brain is not change compared to old exam. Lumbar spine completed showing multilevel spondylitic changes with vacuum discs no compression fracture lumbar spine is stable compared to old exam. Chest x-ray completed showing no active cardiopulmonary disease no change. Patient was admitted to medical floor for further evaluation and treatment Past medical history is significant for diabetes mellitus, hypertension, thyroid disorder, cognitive disorder. On review of systems patient is alert and oriented with intermittent episodes of confusion and poor historian. Patient denies any acute complaints. Unable to r ecall falls. Patient does have equal strength throughout all extremities On 06/13/2021 patient is resting comfortably in bed patient is alert. Patient still having some intermittent episodes of confusion. She remains on IV Rocephin. Bilateral legs red and warm to touch. Will order venous Doppler. Patient denies chest pain or shortness breath. Patient denies nausea vomiting or diarrhea. Patient denies any urinary burning or frequency Objective - Vital Signs Vital signs: Vital Signs Temp 98.9 F 06/13/21 05:59 Pulse 98 06/13/21 05:59 Resp 14 06/13/21 05:59 BP 175/74 06/13/21 05:59 Pulse Ox 94 L 06/13/21 05:59 Intake & Output 06/12/21 06/13/21 06/13/21 18:59 06:59 18:59 Weight 108.862 kg 108.862 kg Other: # Voids 1 # Bowel Movements 1 - Exam In general patient is alert, confused in no apparent distress HEENT head normocephalic and atraumatic Neck is supple no JVD no goiter no lymphadenopathy no carotid bruit Chest examination is clear to auscultation no crackles no wheezing Cardiac exam reveals regular heart sounds S1 and S2 no gallops no murmurs Abdomen is soft nontender no organomegaly with normal bowel sounds Extremity exam reveals no edema no cyanosis or clubbing Neurological examination reveals no gross focal deficits - Labs CBC & Chem 7: 06/12/21 14:01 06/12/21 14:01 Labs: Abnormal Lab Results - Last 24 Hours (Table) 06/12/21 06/12/21 06/12/21 Range/Units 13:56 14:01 14:01 Lymphocytes # 0.9 L (1.0-4.8) k/uL Carbon Dioxide (22-30) mmol/L BUN (7-17) mg/dL Glucose (74-99) mg/dL POC Glucose (mg/dL) 107 H (75-99) mg/dL Alkaline Phosphatase (38-126) U/L Albumin (3.5-5.0) g/dL Urine Appearance Cloudy H (Clear) Urine Protein Trace H (Negative) Urine Ketones Trace H (Negative) Urine Nitrite Positive H (Negative) Urine Bacteria Many H (None) /hpf Hyaline Casts 10 H (0-2) /lpf 06/12/21 06/12/21 06/13/21 Range/Units 14:01 21:27 07:03 Lymphocytes # (1.0-4.8) k/uL Carbon Dioxide 33 H (22-30) mmol/L BUN 21 H (7-17) mg/dL Glucose 111 H (74-99) mg/dL POC Glucose (mg/dL) 74 L 139 H (75-99) mg/dL Alkaline Phosphatase 128 H (38-126) U/L Albumin 3.4 L (3.5-5.0) g/dL Urine Appearance (Clear) Urine Protein (Negative) Urine Ketones (Negative) Urine Nitrite (Negative) Urine Bacteria (None) /hpf Hyaline Casts (0-2) /lpf Assessment and Plan Plan: 1. Multiple falls at home 2. Urine tract infection 3. Cognitive disorder 4. Diabetes mellitus 5. Essential hypertension 6. Thyroid disorder 7. Lower extremity cellulitis will order venous Doppler to rule out EVT. Patient attained on IV antibiotic DVT prophylaxis Lovenox. GI prophylaxis Protonix PT OT and social work service is consulted Continue IV Rocephin for urinary tract infection urine culture pending Repeat labs ordered
[2021-06-13 11:12] LABS: Basophils # (A) 0.03 X 10*3/uL (0.00-0.10); Basophils % (A) 0.5 %; Eosinophils # (A) 0.16 X 10*3/uL (0.04-0.35); Eosinophils % (A) 2.9 %; HCT 37.1 % (37.2-46.3); HGB 11.2 g/dL (12.0-15.0); Lymphocytes # (A) 1.29 X 10*3/uL (0.90-5.00); Lymphocytes % (A) 23.6 %; MCH 30.9 pg (27.0-32.0); MCHC 30.2 g/dL (32.0-37.0); MCV 102.5 fL (80.0-97.0); Mean Platelet Volume 10.2 fL (9.5-12.2); Monocytes # (A) 0.66 X 10*3/uL (0.20-1.00); Monocytes % (A) 12.1 %; Neutrophils # (A) 3.32 X 10*3/uL (1.80-7.70); Neutrophils % (A) 60.7 %; Platelet Count 260 X 10*3/uL (140-440); RBC 3.62 X 10*6/uL (4.10-5.20); WBC 5.47 X 10*3/uL (4.50-10.00)
[2021-06-13 11:32] LABS: Glucose,Whole Blood 262 mg/dL (75-99)
--- NOTE | 2021-06-13 11:46 | US ---
EXAMINATION TYPE: US venous doppler duplex LE DATE OF EXAM: 06/13/2021 11:35 AM COMPARISON: NONE CLINICAL HISTORY: warmth and erythema. redness left lower leg SIDE PERFORMED: bilateral TECHNIQUE: The lower extremity deep venous system is examined utilizing real time linear array sonog franko with graded compression, doppler sonography and color-flow sonography. VESSELS IMAGED: Common Femoral Vein Deep Femoral Vein Greater Saphenous Vein * Femoral Vein Popliteal Vein Small Saphenous Vein * Proximal Calf Veins (* superficial vessels) There is normal flow, compressibility, vascular waveforms Right Leg: no evidence of DVT as visualized Left Leg: no evidence of DVT as visualized IMPRESSION: No evident deep venous thrombosis within the lower extremities from the level of the knee s centrally
[2021-06-13 11:56] LABS: African American GFR (CKD) 62.9 (60.0-200.0); Anion Gap 12.6 mmol/L (4.00-12.00); BUN/Creat Ratio 14.5 Ratio (12.00-20.00); Blood Urea Nitrogen 14.5 mg/dL (9.0-27.0); Calcium 8.9 mg/dL (8.7-10.3); Carbon Dioxide 26.4 mmol/L (21.6-31.8); Non-African American GFR(CKD) 54.3 (60.0-200.0)
[2021-06-13 16:42] LABS: Glucose,Whole Blood 183 mg/dL (75-99)
[2021-06-13 20:06] LABS: Glucose,Whole Blood 219 mg/dL (75-99)
[2021-06-13] MEDS: traZODone HCL 50 MG TAB PO SCH (21:50)
[2021-06-13] MEDS: ATORVASTATIN 10 MG TAB PO SCH (21:51)
[2021-06-14] MEDS: LEVOTHYROXINE 125 MCG TAB PO SCH (05:53)
[2021-06-14 06:55] LABS: Glucose,Whole Blood 101 mg/dL (75-99)
[2021-06-14] MEDS: ENOXAPARIN 40 MG/0.4 ML SYRINGE SQ SCH (07:18)
[2021-06-14] MEDS: PANTOPRAZOLE 40 MG TABLET PO SCH (07:18)
[2021-06-14] MEDS: FLUoxetine HCL 20 MG CAP PO SCH (07:18)
[2021-06-14] MEDS: DONEPEZIL 10 MG TAB PO SCH (07:18)
[2021-06-14] MEDS: MEMANTINE 10 MG TAB PO SCH ×2 (07:19→21:32)
[2021-06-14] MEDS: LOSARTAN 50 MG TAB PO SCH (07:19)
[2021-06-14] MEDS: FUROSEMIDE 40 MG TAB PO SCH ×2 (07:19→21:32)
[2021-06-14] MEDS: glipiZIDE 10 MG TAB PO SCH ×2 (07:19→21:32)
[2021-06-14] MEDS: buPROPion SR 100 MG TABLET.ER PO SCH ×2 (07:19→21:32)
[2021-06-14] MEDS: PIOGLITAZONE 45 MG TAB PO SCH (07:19)
[2021-06-14] MEDS: NON FORMULARY DRUG (Mirabegron [Myrbetriq] 50 MG Tablet) PO SCH (07:20)
--- NOTE | 2021-06-14 08:13 | P.CONS ---
History of Present Illness - Reason for Consult Consult date: 06/13/21 left leg cellulitis Requesting physician: Quinton Rubio - Chief Complaint falls and back pain x days - History of Present Illness History of present illness : Patient is 75-year-old female presenting to the ER yesterday afternoon for evaluation of multiple falls mental status changes apparently the patient did have multiple falls the last couple of weeks and did have some pain into the lower back area no history of any loss of consciousness or any significant bruising patient was also noticed to have a erythema to the left lower extremity patient complaining of some radiating pain to the left leg area 3-4 out of 10 and no radiation patient on presentation to the hospital was afebrile patient did have a normal white count kidney function has been normal liver enzymes are normal urine was negative hodgson PCR was negative patient did have a CT of the lumbar spine multilevel spondylitic changes no compression fracture patient was started on Rocephin infectious disease was consulted for further management did have a lower extremity Doppler was negative for DVT Review of system: CONSTITUTIONAL: Positive for weakness denies fever. EYES: No complaint. ENT: No complaint. RESPIRATORY: No complaint. CARDIOVASCULAR: No complaint. GENITOURINARY: No complaint. GASTROINTESTINAL: No complaint. MUSCULOSKELETAL: As per history of present illness. INTEGUMENTARY: As per history of present illness. PSYCHOLOGIC: No complaint. ENDOCRINE: No complaint. NEUROLOGIC: As per history of present illness. Past medical history : Reviewed, documented below Past surgical history : Reviewed, documented below Social history: Reviewed, documented below Medications: Reviewed, as documented below EXAMINATION: Vital sigans= Reviewed and documented below GENERAL DESCRIPTION: Elderly female lying in bed, no distress. No tachypnea or accessory muscle of respiration use. HEENT: Shows Pallor , no scleral icterus. Oral mucous membrane is dry. NECK: Trachea central, no thyromegaly. LUNGS: Unlabored breathing. Clear to auscultation anteriorly. No wheeze or aircraft restorer ckle. HEART: S1, S2, regular rate and rhythm. ABDOMEN: Soft, no tenderness , guarding or rigidity EXTREMITIES: Swelling and mild erythema to the left leg mildly warm to touch no blister or any drainage SKIN: No rash, no masses palpable. NEUROLOGICAL: The patient is awake, alert, oriented x3, mood and affect normal. LABS AND RADIOLOGY: Reviewed results see below Assessment : Patient presented to hospital with multiple falls back pain in this patient did have a significant degenerative disease on the CT patient also have a minimal erythema warmth of the left leg concerning for mild cellulitis likely from gram-positive skin latisha Plan: 1-discontinue Rocephin 2-start the patient cefazolin 2 g every 8 hour 3-Marked area of the redness left leg We will follow on clinical condition and cultures to further adjust medication if needed Thank you for this consultation we will follow the patient along with you Past Medical History Past Medical History: Diabetes Mellitus, Hypertension, Thyroid Disorder Additional Past Medical History / Comment(s): URINARY INCONTINENCE, "cognitive disorder" History of Any Multi-Drug Resistant Organisms: None Reported Past Surgical History: Back Surgery, Tubal Ligation Additional Past Surgical History / Comment(s): Tubal ligation Past Anesthesia/Blood Transfusion Reactions: No Reported Reaction Past Psychological History: No Psychological Hx Reported Smoking Status: Never smoker Past Alcohol Use History: None Reported Past Drug Use History: None Reported - Past Family History Father Family Medical History: Cancer Medications and Allergies Home Medications Medication Instructions Recorded Confirmed Type Insulin Glargine,Hum.rec.anlog 35 unit SQ DAILY 06/21/18 06/12/21 History [Lantus Solostar Pen] Pioglitazone [Actos] 45 mg PO DAILY 06/21/18 06/12/21 History Simvastatin [Zocor] 20 mg PO HS 06/21/18 06/12/21 History traZODone HCL [Desyrel] 25 mg PO HS 06/21/18 06/12/21 History FLUoxetine HCL [PROzac] 40 mg PO DAILY 02/20/20 06/12/21 History Memantine [Namenda] 10 mg PO BID 02/20/20 06/12/21 History buPROPion HCL [Wellbutrin SR] 200 mg PO BID 02/20/20 06/12/21 History glipiZIDE [Glucotrol] 10 mg PO BID 02/20/20 06/12/21 History Donepezil HCl [Aricept] 10 mg PO DAILY 06/12/21 06/12/21 History Furosemide [Lasix] 40 mg PO BID 06/12/21 06/12/21 History Levothyroxine Sodium [Synthroid] 125 mcg PO DAILY 06/12/21 06/12/21 History Losartan Potassium [Cozaar] 100 mg PO DAILY 06/12/21 06/12/21 History Mirabegron [Myrbetriq] 50 mg PO DAILY 06/12/21 06/12/21 History Allergies Allergy/AdvReac Type Severity Reaction Status Date / Time latex Allergy Rash/Hives Verified 06/12/21 13:28 metformin Allergy Rash/Hives Verified 06/12/21 13:28 Sulfa (Sulfonamide Allergy Anaphylaxis Verified 06/12/21 13:28 Antibiotics) Physical Exam Vitals: Vital Signs Temp Pulse Pulse Resp BP BP Pulse Ox 06/13/21 14:00 98.4 F 83 18 159/73 96 06/13/21 05:59 98.9 F 98 14 175/74 94 L 06/13/21 01:11 99.1 F 100 15 160/78 96 06/12/21 23:12 99 18 06/12/21 20:29 90 18 169/88 98 06/12/21 20:00 98.8 F 99 16 176/78 97 Intake and Output 06/13/21 06/13/21 06/13/21 06:59 14:59 22:59 Other: # Voids 1 # Bowel Movements 1 Results CBC & Chem 7: 06/13/21 07:16 06/13/21 07:16 Labs: Abnormal Lab Results - Last 24 Hours (Table) 06/12/21 06/13/21 06/13/21 Range/Units 21:27 07:03 07:16 RBC 3.62 L (4.10-5.20) X 10*6/uL Hgb 11.2 L (12.0-15.0) g/dL Hct 37.1 L (37.2-46.3) % MCV 102.5 H (80.0-97.0) fL MCHC 30.2 L (32.0-37.0) g/dL Anion Gap (4.00-12.00) mmol/L Est GFR (CKD-EPI)NonAf (60.0-200.0) Glucose (70-110) mg/dL POC Glucose (mg/dL) 74 L 139 H (75-99) mg/dL 06/13/21 06/13/21 06/13/21 Range/Units 07:16 11:31 16:40 RBC (4.10-5.20) X 10*6/uL Hgb (12.0-15.0) g/dL Hct (37.2-46.3) % MCV (80.0-97.0) fL MCHC (32.0-37.0) g/dL Anion Gap 12.60 H (4.00-12.00) mmol/L Est GFR (CKD-EPI)NonAf 54.3 L (60.0-200.0) Glucose 139 H (70-110) mg/dL POC Glucose (mg/dL) 262 H 183 H (75-99) mg/dL
[2021-06-14 08:44] LABS: Basophils # (A) 0.06 X 10*3/uL (0.00-0.10); Basophils % (A) 1.1 %; Eosinophils # (A) 0.22 X 10*3/uL (0.04-0.35); HGB 11.5 g/dL (12.0-15.0); Lymphocytes # (A) 1.44 X 10*3/uL (0.90-5.00); Lymphocytes % (A) 26.5 %; MCH 31.9 pg (27.0-32.0); MCHC 31.1 g/dL (32.0-37.0); MCV 102.5 fL (80.0-97.0); Monocytes # (A) 0.74 X 10*3/uL (0.20-1.00); Monocytes % (A) 13.6 %; Neutrophils # (A) 2.97 X 10*3/uL (1.80-7.70); Neutrophils % (A) 54.6 %; Platelet Count 255 X 10*3/uL (140-440); RBC 3.61 X 10*6/uL (4.10-5.20); RDW 13.1 % (11.5-14.5); WBC 5.44 X 10*3/uL (4.50-10.00)
[2021-06-14 09:12] LABS: ALT 23 U/L (8-44); AST 20 U/L (13-35); African American GFR (CKD) 62.9 (60.0-200.0); Albumin 3.5 g/dL (3.8-4.9); Albumin/Globulin Ratio 1.46 (1.60-3.17); Alkaline Phosphatase 124 U/L (41-126); Blood Urea Nitrogen 13.2 mg/dL (9.0-27.0); Calcium 8.7 mg/dL (8.7-10.3); Carbon Dioxide 27.2 mmol/L (21.6-31.8); Chloride 102 mmol/L (96-109); Globulin 2.4 g/dL (1.6-3.3); Glucose 125 mg/dL (70-110); Non-African American GFR(CKD) 54.3 (60.0-200.0); Potassium 3.6 mmol/L (3.5-5.5); Sodium 139 mmol/L (135-145); Total Bilirubin <0.20 mg/dL (0.30-1.20); Total Protein 5.9 g/dL (6.2-8.2)
[2021-06-14] MEDS: INSULIN DETEMIR (LEVEMIR) 100 UNIT/ML SYR SQ SCH (11:37)
[2021-06-14 11:47] LABS: Glucose,Whole Blood 240 mg/dL (75-99)
[2021-06-14 16:44] LABS: Glucose,Whole Blood 277 mg/dL (75-99)
[2021-06-14] MEDS: INSULIN ASPART (NovoLOG) 100 UNIT/ML VIAL SQ SCH ×2 (17:09→21:32)
--- NOTE | 2021-06-14 19:06 | PN ---
PROGRESS NOTE DATE OF SERVICE: 06/14/2021 REASON FOR FOLLOWUP: Left lower extremity cellulitis. INTERVAL HISTORY: The patient is afebrile. The patient is currently breathing comfortably. No chest pain, shortness of breath or cough. No abdominal pain or any worsening pain to the left leg. PHYSICAL EXAMINATION: Blood pressure 159/81 with a pulse of 94, temperature 97.8. She is 98% on room air. General description is an elderly female up in the chair in no distress. RESPIRATORY SYSTEM: Unlabored breathing. Decreased breath sounds at the bases. No wheeze. HEART: S1, S2. Regular rate and rhythm. ABDOMEN: Soft. No tenderness. Left leg swelling and redness has decreased. LABS: Hemoglobin 11.5, white count 5.44, creatinine 1.0. DIAGNOSTIC IMPRESSION AND PLAN: Patient with acute left lower extremity cellulitis with diffuse redness, likely streptococcal disease. Patient is covered with IV cefazolin; to continue. Transition to oral antibiotic on discharge. Continue supportive care. MMODL / IJN: [id number] /
[2021-06-14 21:05] LABS: Glucose,Whole Blood 196 mg/dL (75-99)
[2021-06-14] MEDS: traZODone HCL 50 MG TAB PO SCH (21:33)
[2021-06-14] MEDS: ATORVASTATIN 10 MG TAB PO SCH (21:35)
[2021-06-15] MEDS: LEVOTHYROXINE 125 MCG TAB PO SCH (05:55)
[2021-06-15 06:57] LABS: Glucose,Whole Blood 123 mg/dL (75-99)
[2021-06-15] MEDS: INSULIN ASPART (NovoLOG) 100 UNIT/ML VIAL SQ SCH ×4 (07:14→21:30)
[2021-06-15] MEDS: NON FORMULARY DRUG (Mirabegron [Myrbetriq] 50 MG Tablet) PO SCH (07:14)
[2021-06-15] MEDS: ENOXAPARIN 40 MG/0.4 ML SYRINGE SQ SCH (07:55)
[2021-06-15] MEDS: buPROPion SR 100 MG TABLET.ER PO SCH ×2 (07:55→21:30)
[2021-06-15] MEDS: DONEPEZIL 10 MG TAB PO SCH (07:55)
[2021-06-15] MEDS: LOSARTAN 50 MG TAB PO SCH (07:55)
[2021-06-15] MEDS: MEMANTINE 10 MG TAB PO SCH ×2 (07:55→21:30)
[2021-06-15] MEDS: FLUoxetine HCL 20 MG CAP PO SCH (07:55)
[2021-06-15] MEDS: FUROSEMIDE 40 MG TAB PO SCH ×2 (07:56→21:30)
[2021-06-15] MEDS: glipiZIDE 10 MG TAB PO SCH ×2 (07:56→21:30)
[2021-06-15] MEDS: INSULIN DETEMIR (LEVEMIR) 100 UNIT/ML SYR SQ SCH (07:56)
[2021-06-15] MEDS: PANTOPRAZOLE 40 MG TABLET PO SCH (07:56)
[2021-06-15] MEDS: PIOGLITAZONE 45 MG TAB PO SCH (07:56)
[2021-06-15 11:24] LABS: Glucose,Whole Blood 248 mg/dL (75-99)
--- NOTE | 2021-06-15 15:01 | P.PN ---
Subjective Progress Note Date: 06/14/21 Shiloh Hampton, is a 75-year-old female who presented to [facility] emergency room with a chief complaint of acute mental status changes with multiple falls. Patient appears to be a poor historian history is obtained from ER report no family at bedside. According to the ER records states that patient has fallen multiple times in the past couple weeks. Patient apparently fell and hurt her lumbar spine and had some difficulties with ambulation. Patient reports that she was getting out of the shower and she fell again. Patient did hit the back of her head. Laboratory data reveals patient positive for UTI. Coban negative. All other lab work unremarkable Testing in the emergency room revealed. Head and cervical spine CT completed showing mild spondylitic changes in the cervical spine fracture. Cerebral atrophy. No acute intracranial abnormality. Brain is not change compared to old exam. Lumbar spine completed showing multilevel spondylitic changes with vacuum discs no compression fracture lumbar spine is stable compared to old exam. Chest x-ray completed showing no active cardiopulmonary disease no change. Patient was admitted to medical floor for further evaluation and treatment Past medical history is significant for diabetes mellitus, hypertension, thyroid disorder, cognitive disorder. On review of systems patient is alert and oriented with intermittent episodes of confusion and poor historian. Patient denies any acute complaints. Unable to r ecall falls. Patient does have equal strength throughout all extremities On 06/13/2021 patient is resting comfortably in bed patient is alert. Patient still having some intermittent episodes of confusion. She remains on IV Rocephin. Bilateral legs red and warm to touch. Will order venous Doppler. Patient denies chest pain or shortness breath. Patient denies nausea vomiting or diarrhea. Patient denies any urinary burning or frequency. On 06/14/2021 patient was seen and examined on the medical floor she is alert slightly confused in no apparent distress there is no fever or chills no h eadache or dizziness no chest pain no shortness of breath no cough no nausea or vomiting no abdominal pain no diarrhea and no urinary symptoms Objective - Vital Signs Vital signs: Vital Signs Temp 97.8 F 06/14/21 14:00 Pulse 94 06/14/21 14:00 Resp 18 06/14/21 14:00 BP 159/81 06/14/21 14:00 Pulse Ox 98 06/14/21 14:00 Intake & Output 06/13/21 06/14/21 06/14/21 18:59 06:59 18:59 Other: # Voids 1 - Exam In general patient is alert, confused in no apparent distress HEENT head normocephalic and atraumatic Neck is supple no JVD no goiter no lymphadenopathy no carotid bruit Chest examination is clear to auscultation no crackles no wheezing Cardiac exam reveals regular heart sounds S1 and S2 no gallops no murmurs Abdomen is soft nontender no organomegaly with normal bowel sounds Extremity exam reveals no edema no cyanosis or clubbing Neurological examination reveals no gross focal deficits - Labs CBC & Chem 7: 06/14/21 03:01 06/14/21 03:01 Labs: Abnormal Lab Results - Last 24 Hours (Table) 06/13/21 06/13/21 06/14/21 Range/Units 16:40 20:04 03:01 RBC 3.61 L (4.10-5.20) X 10*6/uL Hgb 11.5 L (12.0-15.0) g/dL Hct 37.0 L (37.2-46.3) % MCV 102.5 H (80.0-97.0) fL MCHC 31.1 L (32.0-37.0) g/dL Est GFR (CKD-EPI)NonAf (60.0-200.0) Glucose (70-110) mg/dL POC Glucose (mg/dL) 183 H 219 H (75-99) mg/dL Total Bilirubin (0.30-1.20) mg/dL Total Protein (6.2-8.2) g/dL Albumin (3.8-4.9) g/dL Albumin/Globulin Ratio (1.60-3.17) g/dL 06/14/21 06/14/21 06/14/21 Range/Units 03:01 06:53 11:47 RBC (4.10-5.20) X 10*6/uL Hgb (12.0-15.0) g/dL Hct (37.2-46.3) % MCV (80.0-97.0) fL MCHC (32.0-37.0) g/dL Est GFR (CKD-EPI)NonAf 54.3 L (60.0-200.0) Glucose 125 H (70-110) mg/dL POC Glucose (mg/dL) 101 H 240 H (75-99) mg/dL Total Bilirubin <0.20 L (0.30-1.20) mg/dL Total Protein 5.9 L (6.2-8.2) g/dL Albumin 3.5 L (3.8-4.9) g/dL Albumin/Globulin Ratio 1.46 L (1.60-3.17) g/dL Assessment and Plan Plan: 1. Multiple falls at home 2. Urine tract infection 3. Cognitive disorder 4. Diabetes mellitus 5. Essential hypertension 6. Thyroid disorder 7. Lower extremity cellulitis will order venous Doppler to rule out EVT. Patient attained on IV antibiotic DVT prophylaxis Lovenox. GI prophylaxis Protonix PT OT and social work service is consulted Continue IV Rocephin for urinary tract infection urine culture pending Repeat labs ordered
[2021-06-15 16:50] LABS: Glucose,Whole Blood 253 mg/dL (75-99)
[2021-06-15 20:13] LABS: Glucose,Whole Blood 258 mg/dL (75-99)
[2021-06-15] MEDS: ATORVASTATIN 10 MG TAB PO SCH (21:30)
[2021-06-15] MEDS: traZODone HCL 50 MG TAB PO SCH (21:30)
--- NOTE | 2021-06-15 21:56 | PN ---
PROGRESS NOTE DATE OF SERVICE: 06/15/2021 REASON FOR FOLLOWUP: Left lower extremity cellulitis. INTERVAL HISTORY: The patient is afebrile. The patient is currently breathing comfortably, feeling slightly better. No chest pain, shortness of breath or cough. No abdominal pain. Left leg swelling has slightly decreased. PHYSICAL EXAMINATION: Blood pressure is 151/65, pulse of 81, temperature 97.7. She is 94% on room air. General description is an elderly female lying in bed in no distress. RESPIRATORY SYSTEM: Unlabored breathing. Clear to auscultation anteriorly. HEART: S1, S2. Regular rate and rhythm. ABDOMEN: Soft. No tenderness. Left leg swelling and redness have mildly decreased. LABS: No new labs have been obtained today. DIAGNOSTIC IMPRESSION AND PLAN: Patient with left lower extremity cellulitis in this patient admitted to the hospital with multiple falls. Patient is currently covered with cefazolin. Hopefully transition to oral antibiotic on discharge. was at the bedside. Questions and concerns were answered. MMODL / IJN: [id number] /
[2021-06-16 02:00] VITALS: PULSE 94
[2021-06-16] MEDS: LEVOTHYROXINE 125 MCG TAB PO SCH (05:54)
[2021-06-16 06:49] LABS: Glucose,Whole Blood 146 mg/dL (75-99)
[2021-06-16] MEDS: INSULIN ASPART (NovoLOG) 100 UNIT/ML VIAL SQ SCH ×3 (08:00→16:52)
[2021-06-16] MEDS: PANTOPRAZOLE 40 MG TABLET PO SCH (08:01)
[2021-06-16 08:53] VITALS: BP 138/71; RESP 17; TEMP 98.4
[2021-06-16] MEDS: PIOGLITAZONE 45 MG TAB PO SCH (09:16)
[2021-06-16] MEDS: glipiZIDE 10 MG TAB PO SCH (09:17)
[2021-06-16] MEDS: DONEPEZIL 10 MG TAB PO SCH (09:17)
[2021-06-16] MEDS: FUROSEMIDE 40 MG TAB PO SCH (09:17)
[2021-06-16] MEDS: MEMANTINE 10 MG TAB PO SCH (09:17)
[2021-06-16] MEDS: ENOXAPARIN 40 MG/0.4 ML SYRINGE SQ SCH (09:18)
[2021-06-16] MEDS: buPROPion SR 100 MG TABLET.ER PO SCH (09:18)
[2021-06-16] MEDS: FLUoxetine HCL 20 MG CAP PO SCH (09:18)
[2021-06-16] MEDS: INSULIN DETEMIR (LEVEMIR) 100 UNIT/ML SYR SQ SCH (09:19)
[2021-06-16] MEDS: NON FORMULARY DRUG (Mirabegron [Myrbetriq] 50 MG Tablet) PO SCH (09:36)
[2021-06-16] MEDS: LOSARTAN 50 MG TAB PO SCH (09:38)
[2021-06-16 09:40] LABS: Basophils # (A) 0.03 X 10*3/uL (0.00-0.10); Basophils % (A) 0.5 %; Eosinophils # (A) 0.25 X 10*3/uL (0.04-0.35); HCT 36.1 % (37.2-46.3); HGB 11.2 g/dL (12.0-15.0); Lymphocytes # (A) 1.58 X 10*3/uL (0.90-5.00); Lymphocytes % (A) 25.4 %; MCH 31.2 pg (27.0-32.0); MCV 100.6 fL (80.0-97.0); Mean Platelet Volume 10.3 fL (9.5-12.2); Monocytes # (A) 0.76 X 10*3/uL (0.20-1.00); Monocytes % (A) 12.2 %; Neutrophils # (A) 3.58 X 10*3/uL (1.80-7.70); Neutrophils % (A) 57.6 %; Platelet Count 238 X 10*3/uL (140-440); RBC 3.59 X 10*6/uL (4.10-5.20); RDW 12.9 % (11.5-14.5); WBC 6.22 X 10*3/uL (4.50-10.00)
[2021-06-16 10:57] LABS: ALT 17 U/L (8-44); AST 20 U/L (13-35); African American GFR (CKD) 45.8 (60.0-200.0); Albumin 3.5 g/dL (3.8-4.9); Albumin/Globulin Ratio 1.46 (1.60-3.17); Alkaline Phosphatase 137 U/L (41-126); BUN/Creat Ratio 15.85 Ratio (12.00-20.00); Blood Urea Nitrogen 20.6 mg/dL (9.0-27.0); Calcium 9.2 mg/dL (8.7-10.3); Carbon Dioxide 29.8 mmol/L (21.6-31.8); Chloride 100 mmol/L (96-109); Globulin 2.4 g/dL (1.6-3.3); Glucose 129 mg/dL (70-110); Non-African American GFR(CKD) 39.5 (60.0-200.0); Potassium 3.8 mmol/L (3.5-5.5); Sodium 141 mmol/L (135-145); Total Bilirubin <0.20 mg/dL (0.30-1.20); Total Protein 5.9 g/dL (6.2-8.2)
[2021-06-16 11:32] LABS: Glucose,Whole Blood 353 mg/dL (75-99)
--- NOTE | 2021-06-16 12:40 | P.PN ---
Subjective Progress Note Date: 06/15/21 Shiloh Hampton, is a 75-year-old female who presented to [facility] emergency room with a chief complaint of acute mental status changes with multiple falls. Patient appears to be a poor historian history is obtained from ER report no family at bedside. According to the ER records states that patient has fallen multiple times in the past couple weeks. Patient apparently fell and hurt her lumbar spine and had some difficulties with ambulation. Patient reports that she was getting out of the shower and she fell again. Patient did hit the back of her head. Laboratory data reveals patient positive for UTI. Coban negative. All other lab work unremarkable Testing in the emergency room revealed. Head and cervical spine CT completed showing mild spondylitic changes in the cervical spine fracture. Cerebral atrophy. No acute intracranial abnormality. Brain is not change compared to old exam. Lumbar spine completed showing multilevel spondylitic changes with vacuum discs no compression fracture lumbar spine is stable compared to old exam. Chest x-ray completed showing no active cardiopulmonary disease no change. Patient was admitted to medical floor for further evaluation and treatment Past medical history is significant for diabetes mellitus, hypertension, thyroid disorder, cognitive disorder. On review of systems patient is alert and oriented with intermittent episodes of confusion and poor historian. Patient denies any acute complaints. Unable to r ecall falls. Patient does have equal strength throughout all extremities On 06/13/2021 patient is resting comfortably in bed patient is alert. Patient still having some intermittent episodes of confusion. She remains on IV Rocephin. Bilateral legs red and warm to touch. Will order venous Doppler. Patient denies chest pain or shortness breath. Patient denies nausea vomiting or diarrhea. Patient denies any urinary burning or frequency. On 06/14/2021 patient was seen and examined on the medical floor she is alert slightly confused in no apparent distress there is no fever or chills no h eadache or dizziness no chest pain no shortness of breath no cough no nausea or vomiting no abdominal pain no diarrhea and no urinary symptoms. On 06/15/2021 patient was seen and examined on the medical floor she is alert, confused in no apparent distress there is no fever or chills no headache or dizziness no chest pain no shortness of breath no cough no nausea or vomiting no abdominal pain no diarrhea and no urinary symptoms she is tolerating diet well at this time will check TSH level, continue with current management possible transfer to rehab tomorrow On 06/16/2021 patient's alert with continued episodes of confusion. Planning discharge to ECF in the next 24-48 hours. Patient denies chest pain or shortness breath. Patient denies nausea vomiting or diarrhea. Patient denies any urinary burning or frequency Objective - Vital Signs Vital signs: Vital Signs Temp 97.6 F 06/15/21 08:00 Pulse 94 06/15/21 08:00 Resp 16 06/15/21 08:00 BP 147/79 06/15/21 08:00 Pulse Ox 98 06/15/21 08:00 Intake & Output 06/14/21 06/15/21 06/15/21 18:59 06:59 18:59 Intake Total 50 Balance 50 Intake: Intake, IV Titration 50 Amount ceFAZolin 2 gm In Sodium 50 Chloride 0.9% 50 ml @ 100 mls/hr IVPB Q8HR [facility] Rx# :[id number] Other: Voiding Method Toilet Diaper # Voids 3 2 # Bowel Movements 0 - Exam In general patient is alert, confused in no apparent distress HEENT head normocephalic and atraumatic Neck is supple no JVD no goiter no lymphadenopathy no carotid bruit Chest examination is clear to auscultation no crackles no wheezing Cardiac exam reveals regular heart sounds S1 and S2 no gallops no murmurs Abdomen is soft nontender no organomegaly with normal bowel sounds Extremity exam reveals no edema no cyanosis or clubbing Neurological examination reveals no gross focal deficits - Labs CBC & Chem 7: 06/16/21 05:47 06/16/21 05:47 Labs: Abnormal Lab Results - Last 24 Hours (Table) 06/14/21 06/14/21 06/15/21 Range/Units 16:43 20:51 06:56 POC Glucose (mg/dL) 277 H 196 H 123 H (75-99) mg/dL 06/15/21 Range/Units 11:22 POC Glucose (mg/dL) 248 H (75-99) mg/dL Assessment and Plan Plan: 1. Multiple falls at home 2. Urine tract infection 3. Cognitive disorder 4. Diabetes mellitus 5. Essential hypertension 6. Thyroid disorder 7. Lower extremity cellulitis will order venous Doppler to rule out EVT. Patient attained on IV antibiotic DVT prophylaxis Lovenox. GI prophylaxis Protonix PT OT and social work service is consulted Continue IV Rocephin for urinary tract infection urine culture pending Repeat labs ordered
--- NOTE | 2021-06-16 12:41 | P.DS ---
Providers Date of admission: 06/12/21 15:37 Expected date of discharge: 06/16/21 Attending physician: Quinton Rubio Consults: 06/13/21 10:43 Consult Physician Routine Consulting Provider: Jaron Lantigua Consult Reason/Comments: lower extremity cellulitis Do you want consulting provider notified?: Yes Primary care physician: Tina Quesada [facility] Course: Discharge diagnosis 1. Multiple falls at home 2. Urine tract infection 3. Cognitive disorder 4. Diabetes mellitus 5. Essential hypertension 6. Thyroid disorder 7. Lower extremity cellulitis will order venous Doppler to rule out EVT. Patient attained on IV antibiotic Hospital course Shiloh Hampton, is a 75-year-old female who presented to [facility] emergency room with a chief complaint of acute mental status changes with multiple falls. Patient appears to be a poor historian history is obtained from ER report no family at bedside. According to the ER records states that patient has fallen multiple times in the past couple weeks. Patient apparently fell and hurt her lumbar spine and had some difficulties with ambulation. Patient reports that she was getting out of the shower and she fell again. Patient did hit the back of her head. Laboratory data reveals patient positive for UTI. Coban negative. All other lab work unremarkable Testing in the emergency room revealed. Head and cervical spine CT completed showing mild spondylitic changes in the cervical spine fracture. Cerebral atrophy. No acute intracranial abnormality. Brain is not change compared to old exam. Lumbar spine completed showing multilevel spondylitic changes with vacuum discs no compression fracture lumbar spine is stable compared to old exam. Chest x-ray completed showing no active cardiopulmonary disease no change. Patient was admitted to medical floor for further evaluation and treatment Past medical history is significant for diabetes mellitus, hypertension, thyroid disorder, cognitive disorder. On review of systems patient is alert and oriented with intermittent episodes of confusion and poor historian. Patient denies any acute complaints. Unable to recall falls. Patient does have equal strength throughout all extremities On 06/13/2021 patient is resting comfortably in bed patient is alert. Patient still having some intermittent episodes of confusion. She remains on IV Rocephin. Bilateral legs red and warm to touch. Will order venous Doppler. Patient denies chest pain or shortness breath. Patient denies nausea vomiting or diarrhea. Patient denies any urinary burning or frequency. On 06/14/2021 patient was seen and examined on the medical floor she is alert slightly confused in no apparent distress there is no fever or chills no headache or dizziness no chest pain no shortness of breath no cough no nausea or vomiting no abdominal pain no diarrhea and no urinary symptoms. On 06/15/2021 patient was seen and examined on the medical floor she is alert, confused in no apparent distress there is no fever or chills no headache or dizziness no chest pain no shortness of breath no cough no nausea or vomiting no abdominal pain no diarrhea and no urinary symptoms she is tolerating diet well at this time will check TSH level, continue with current management possible transfer to rehab tomorrow On patient to be discharged to F facility. Discussed case with infectious services. Patient may be discharged on Keflex. Repeat UA culture upon arrival to facility. At this time patient denies chest pain or shortness breath. Patient denies nausea vomiting or diarrhea. Patient denies any urinary burning or frequency Patient Condition at Discharge: Stable Plan - Discharge Summary Discharge Rx Participant: No New Discharge Prescriptions: New INSULIN ASPART (NovoLOG) [NovoLOG (formulary)] 0 unit SQ ACHS ml Cephalexin [Keflex] 500 mg PO Q12HR 14 Days #7 cap Continue Pioglitazone [Actos] 45 mg PO DAILY traZODone HCL [Desyrel] 25 mg PO HS Simvastatin [Zocor] 20 mg PO HS Insulin Glargine,Hum.rec.anlog [Lantus Solostar Pen] 35 unit SQ DAILY buPROPion HCL [Wellbutrin SR] 200 mg PO BID FLUoxetine HCL [PROzac] 40 mg PO DAILY glipiZIDE [Glucotrol] 10 mg PO BID Memantine [Namenda] 10 mg PO BID Mirabegron [Myrbetriq] 50 mg PO DAILY Losartan Potassium [Cozaar] 100 mg PO DAILY Levothyroxine Sodium [Synthroid] 125 mcg PO DAILY Furosemide [Lasix] 40 mg PO BID Donepezil HCl [Aricept] 10 mg PO DAILY Discharge Medication List Insulin Glargine,Hum.rec.anlog [Lantus Solostar Pen] 35 unit SQ DAILY 06/21/18 [History] Pioglitazone [Actos] 45 mg PO DAILY 06/21/18 [History] Simvastatin [Zocor] 20 mg PO HS 06/21/18 [History] traZODone HCL [Desyrel] 25 mg PO HS 06/21/18 [History] FLUoxetine HCL [PROzac] 40 mg PO DAILY 02/20/20 [History] Memantine [Namenda] 10 mg PO BID 02/20/20 [History] buPROPion HCL [Wellbutrin SR] 200 mg PO BID 02/20/20 [History] glipiZIDE [Glucotrol] 10 mg PO BID 02/20/20 [History] Donepezil HCl [Aricept] 10 mg PO DAILY 06/12/21 [History] Furosemide [Lasix] 40 mg PO BID 06/12/21 [History] Levothyroxine Sodium [Synthroid] 125 mcg PO DAILY 06/12/21 [History] Losartan Potassium [Cozaar] 100 mg PO DAILY 06/12/21 [History] Mirabegron [Myrbetriq] 50 mg PO DAILY 06/12/21 [History] Cephalexin [Keflex] 500 mg PO Q12HR 14 Days #7 cap 06/16/21 [Rx] INSULIN ASPART (NovoLOG) [NovoLOG (formulary)] 0 unit SQ ACHS ml 06/16/21 [Rx] Follow up Appointment(s)/Referral(s): Tina Quesada MD [Primary Care Provider] - 1-2 days Activity/Diet/Wound Care/Special Instructions: Please repeat UA and culture upon arrival to [facility] facility Diet heart healthy, consistent carb Activity as tolerated
--- NOTE | 2021-06-16 13:08 | CDI ---
Documentation Clarification Form Date: 06/16/2021 12:53:49 PM From: Deepika Currie RN CCDS Admit Date: 06/12/2021 03:37:00 PM Patient Name: Shiloh Hampton Visit Number: [id number] Discharge Date: ATTENTION: The Clinical Documentation Specialists (CDI) and [facility] Coding Staff appreciate your assistance in clarifying documentation. Please respond to the clarification below the line at the bottom and electronically sign. The CDI & [facility] Coding staff will review the response and follow-up if needed. Please note: Queries are made part of the Legal Health Record. If you have any questions, please contact the author of this message via ITS. Dr. Quinton Rubio Cellulitis is documented lower extremity cellulitis, medicine progress notes, 06/13 -06/15. Additional clarification regarding the type of cellulitis is requested. History/risk factors: 75-year-old female presents to the ED with acute mental status changes with multiple falls. Medical History: DM, HTN and cognitive disorder. H&P, 06/12 Clinical Indicators: Medicine progress note 06/13, Bilateral legs red and warm to touch. Lower extremity cellulitis will order venous doppler to rule out DVT. Patient on IV antibiotic. Treatment: 06/13 06/13 Ceftriaxone 1gm IVPB Q24H,06/14 to current Cefazolin 2gm IVPB Q8H. 06/13 - current Glipizide 10mg po bid,06/13 - current Levemir 35 unit SQ daily, 06/14 current Novolog SQ ACHS sliding scale, 06/13 current Actos 45mg po daily. Please clarify the type of cellulitis, if known: [ ] Cellulitis due to diabetes [ ] Other, please specify: [ ] Unable to determine (Template Last Revised: October 2020) Cellulitis due to diabetes MTDD
--- NOTE | 2021-06-16 13:21 | CDI ---
Documentation Clarification Form Date: 06/16/2021 01:08:54 PM From: Deepika Currie RN CCDS Admit Date: 06/12/2021 03:37:00 PM Patient Name: Shiloh Hampton Visit Number: [id number] Discharge Date: ATTENTION: The Clinical Documentation Specialists (CDI) and [facility] Coding Staff appreciate your assistance in clarifying documentation. Please respond to the clarification below the line at the bottom and electronically sign. The CDI & [facility] Coding staff will review the response and follow-up if needed. Please note: Queries are made part of the Legal Health Record. If you have any questions, please contact the author of this message via ITS. Dr. Quinton Rubio Your patient has the documented symptom of Altered Mental Status 06/12, ED note. Additional clarification regarding the etiology/cause of this symptom is requested. History/Risk Factors: 75-year-old female presents to the ED with acute mental status changes with multiple falls. Medical History: DM, HTN and cognitive disorder. H&P, 06/12 Clinical Indicators: Labs: UA 06/12 Nitrate positive, Wbc 4, Leukocyte esterase negative, Urine bacteria many. CT Brain: 06/12 No acute intracranial abnormality. H&P 06/12 On review of systems patient is alert and oriented with intermittent episodes of confusion and poor historian. Medicine progress note 06/13 06/16 Patient still having some intermittent episodes of confusion. Treatment: 06/13 06/13 Ceftriaxone 1gm IVPB Q24H,06/14 to current Cefazolin 2gm IVPB Q8H. Please clarify the etiology of the symptom of Altered Mental Status: [ ] Metabolic Encephalopathy due to UTI [ ] Other condition (please specify) [ ] Unable to determine (Template Last Revised: September 2020) Metabolic encephalopathy due to UTI and cellulitis MTDD
[2021-06-16 16:40] LABS: Glucose,Whole Blood 171 mg/dL (75-99)
--- NOTE | 2021-06-16 17:26 | PN ---
PROGRESS NOTE DATE OF SERVICE: 06/16/2021. REASON FOR FOLLOWUP: Left lower extremity cellulitis. INTERVAL HISTORY: The patient is afebrile. The patient is currently breathing comfortably. No chest pain, shortness of breath, cough, no abdominal pain or pain to the left leg. PHYSICAL EXAMINATION: Blood pressure 138/71 with a pulse of 94, temperature 98.4. She is 94% on room air. General description is an elderly female lying in bed in no distress. Respiratory system: Unlabored breathing, clear to auscultation anteriorly. Heart S1, S2. Regular rate and rhythm. Abdomen soft, no tenderness. Left leg swelling and redness slightly decreased. LABS: Hemoglobin 11.8, white count 6.22, creatinine 1.3. DIAGNOSTIC IMPRESSION AND PLAN: Patient admitted to the hospital with multiple and concern for left lower leg cellulitis. Overall improvement with cefazolin, to finish a short course of oral Keflex and close outpatient followup. MMODL / IJN: [id number] /
[2021-06-16] MEDS ORDERED: MEMANTINE 5 MG TAB PO SCH (21:00)
[2021-06-17] MEDS ORDERED: ENOXAPARIN 30 MG/0.3 ML SYRINGE SQ SCH (09:00)
== END 2021-06-16 18:35 ==
LOC: EC 13:25 → INTOOBSV 15:37 → 4SSUR 15:37 → UNDODISIN 06-16 18:35
PROVIDERS: ADMIT Internal Medicine; ATTEND Internal Medicine
DX: N39.0 Urinary tract infection, site not specified (principal); G93.41 Metabolic encephalopathy; L03.116 Cellulitis of left lower limb; F09 Unspecified mental disorder due to known physiological condition; R29.6 Repeated falls; Z20.822 Contact with and (suspected) exposure to COVID-19; E11.9 Type 2 diabetes mellitus without complications; S06.0X0A Concussion without loss of consciousness, initial encounter; I10 Essential (primary) hypertension; E07.9 Disorder of thyroid, unspecified; M47.816 Spondylosis without myelopathy or radiculopathy, lumbar region; M50.323 Other cervical disc degeneration at C6-C7 level; R32 Unspecified urinary incontinence; Z79.890 Hormone replacement therapy; Z79.4 Long term (current) use of insulin; Z79.899 Other long term (current) drug therapy; Z79.84 Long term (current) use of oral hypoglycemic drugs; Z88.2 Allergy status to sulfonamides; Z88.8 Allergy status to other drugs, medicaments and biological substances; Z91.040 Latex allergy status; Z98.51 Tubal ligation status; Z80.9 Family history of malignant neoplasm, unspecified; Y92.002 Bathroom of unspecified non-institutional (private) residence as the place of occurrence of the external cause; W18.2XXA Fall in (into) shower or empty bathtub, initial encounter
CPT/HCPCS: 99285; 96366 ×4; 96367; 96372 ×3; 96365; 36415; 93005; 97116; 97161; 97535; 97166; 83880; 80053 ×3; 80048; 84443 ×2; 82550; 83605 ×2; 84484; 85025 ×4; 85610; 85730; 81001; 87635; 71046; 93970; 72125; 72131; 70450; G0378 ×5; S0106 ×4; J0690 ×3; J1650 ×3; J0696 ×2

== ENCOUNTER 2021-08-08 12:37 | Emergency (ER) | payer MEDICARE ==
[2021-08-08 13:15] VITALS: BP 169/74; RESP 18; TEMP 99
--- NOTE | 2021-08-08 14:31 | XR ---
EXAMINATION TYPE: XR hand complete LT, XR wrist complete LT DATE OF EXAM: 08/08/2021 COMPARISON: NONE HISTORY: 75 years Female. STUDY INDICATION GIVEN: fall, pain . TECHNIQUE: 3 radiographs of the left hand and 4 radiographs of the left wrist. IMPRESSION: Bony demineralization osteopenia limits evaluation for nondisplaced fracture. Soft tissue swelling around the wrist joint with no acute displaced fracture or carpal metacarpal dis location. Osteoarthrosis of the hand.
[2021-08-08] MEDS ORDERED: ACETAMINOPHEN TAB 325 MG TAB PO STA (15:28)
--- NOTE | 2021-08-08 15:35 | ED ---
General Adult HPI - General Chief complaint: Fall Stated complaint: Fall, Arm & hand injury Time Seen by Provider: 08/08/21 15:20 Source: patient, family, RN notes reviewed, old records reviewed Mode of arrival: wheelchair Limitations: no limitations - History of Present Illness Initial comments: 75-year-old female presents to the emergency room with family member complaining of falling on her left wrist 2 days ago. Patient states she lost her balance when she did not have her walker. Patient states she's been taking Motrin at home and using a Velcro splint. Patient continues to have swelling and pain which prompted her to come to the emergency room. Patient has a history of diabetes, hypertension, hypothyroid and frequent falls. -: days(s) (2) Location: left, upper extremity (wrist) Severity scale (1-10): 7 Quality: constant Consistency: constant Improves with: immobilization Worsens with: movement Associated Symptoms: denies other symptoms Treatments Prior to Arrival: NSAID, other (velcro splint) - Related Data Home Medications Medication Instructions Recorded Confirmed Insulin Glargine,Hum.rec.anlog 35 unit SQ DAILY 06/21/18 06/12/21 [Lantus Solostar Pen] Pioglitazone [Actos] 45 mg PO DAILY 06/21/18 06/12/21 Simvastatin [Zocor] 20 mg PO HS 06/21/18 06/12/21 traZODone HCL [Desyrel] 25 mg PO HS 06/21/18 06/12/21 FLUoxetine HCL [PROzac] 40 mg PO DAILY 02/20/20 06/12/21 Memantine [Namenda] 10 mg PO BID 02/20/20 06/12/21 buPROPion HCL [Wellbutrin SR] 200 mg PO BID 02/20/20 06/12/21 glipiZIDE [Glucotrol] 10 mg PO BID 02/20/20 06/12/21 Donepezil HCl [Aricept] 10 mg PO DAILY 06/12/21 06/12/21 Furosemide [Lasix] 40 mg PO BID 06/12/21 06/12/21 Levothyroxine Sodium [Synthroid] 125 mcg PO DAILY 06/12/21 06/12/21 Losartan Potassium [Cozaar] 100 mg PO DAILY 06/12/21 06/12/21 Mirabegron [Myrbetriq] 50 mg PO DAILY 06/12/21 06/12/21 Previous Rx's Medication Instructions Recorded Cephalexin [Keflex] 500 mg PO Q12HR 14 Days #7 cap 06/16/21 INSULIN ASPART (NovoLOG) [NovoLOG 0 unit SQ ACHS ml 06/16/21 (formulary)] Allergies Allergy/AdvReac Type Severity Reaction Status Date / Time latex Allergy Rash/Hives Verified 08/08/21 13:15 metformin Allergy Rash/Hives Verified 08/08/21 13:15 Sulfa (Sulfonamide Allergy Anaphylaxis Verified 08/08/21 13:15 Antibiotics) Review of Systems ROS Statement: Those systems with pertinent positive or pertinent negative responses have been documented in the HPI. ROS Other: All systems not noted in ROS Statement are negative. Past Medical History Past Medical History: Diabetes Mellitus, Hypertension, Thyroid Disorder Additional Past Medical History / Comment(s): URINARY INCONTINENCE, "cognitive disorder" History of Any Multi-Drug Resistant Organisms: None Reported Past Surgical History: Back Surgery, Tubal Ligation Additional Past Surgical History / Comment(s): Tubal ligation Past Anesthesia/Blood Transfusion Reactions: No Reported Reaction Past Psychological History: No Psychological Hx Reported Smoking Status: Never smoker Past Alcohol Use History: None Reported Past Drug Use History: None Reported - Past Family History Father Family Medical History: Cancer General Exam Limitations: no limitations General appearance: alert, in no apparent distress Head exam: Present: atraumatic, normocephalic, normal inspection Eye exam: Present: normal appearance, EOMI. Absent: scleral icterus, conjunctival injection, periorbital swelling, periorbital tenderness ENT exam: Present: normal exam, normal oropharynx, mucous membranes moist Neck exam: Present: normal inspection, full ROM. Absent: tenderness, meningismus, lymphadenopathy Respiratory exam: Present: normal lung sounds bilaterally. Absent: respiratory distress, wheezes, rales, rhonchi, stridor, accessory muscle use Cardiovascular Exam: Present: tachycardia. Absent: JVD Left Shoulder Exam: Absent: tenderness Upper Arm exam: Absent: tenderness Elbow exam: Present: full ROM. Absent: tenderness Forearm Wrist exam: Absent: tenderness, swelling Hand Wrist exam: Present: tenderness (Ulnar aspect of the left wrist), swelling. Absent: full ROM, abrasion, laceration, ecchymosis, deformity, dislocation, erythema Neuro motor exam: Present: thumb opposition intact, thumb IP flexion intact, thumb adduction intact Vascular: Present: normal capillary refill, radial pulse. Absent: vascular compromise Neurological exam: Present: alert, oriented X3 Psychiatric exam: Present: normal affect, normal mood Skin exam: Present: warm, dry, intact, normal color. Absent: rash, cyanosis, diaphoretic Course Vital Signs 08/08/21 08/08/21 13:10 15:49 Temperature 99.0 F Pulse Rate 106 H 92 Respiratory 18 Rate Blood Pressure 169/74 O2 Sat by Pulse 94 L Oximetry Procedures - Orthopedic Splinting/Casting Injury #1 Side: left Upper Extremity Injury Location: short arm, wrist Upper Extremity Immobilizer: sling/shoulder immobilizer, [place] wrap, synthetic pre-padded splint Medical Decision Making - Medical Decision Making 75-year-old female presents to the emergency room with complaints of falling on an outstretched hand 2 days ago when she was walking without her walker. She states she lost her balance. She did not lose consciousness and did not hit her head. She has been using Motrin [id number] and a Velcro splint but continues to have swelling and pain in the ulnar aspect of the left wrist. X- ray shows soft tissue swelling around the wrist joint with no acute displaced fracture or carpal metacarpal dislocation. There is bone demineralization osteopenia which limits evaluation of a nondisplaced fracture. Patient was splinted and sent to orthopedics. She was neurovascularly intact prior to and post-splinting. She was directed to rest, ice, elevate and wear splint until seen by orthopedics. Disposition Clinical Impression: Wrist injury Disposition: HOME SELF-CARE Condition: Good Instructions (If sedation given, give patient instructions): Wrist Injury (ED) Additional Instructions: Wear splint, rest, ice and elevate left wrist. Follow-up with orthopedics this week. Tylenol and Motrin [id number] for pain. Return to the emergency room with any new or worsening symptoms. Is patient prescribed a controlled substance at d/c from ED?: No Referrals: Tina Quesada MD [Primary Care Provider] - 1-2 days Vahe Pringle PAC [PHYSICIAN GUEST SERVICES ATTENDANT] - 1-2 days Time of Disposition: 15:34
[2021-08-08 15:50] VITALS: PULSE 92
== END 2021-08-08 15:49 | disposition home or self-care (01) ==
LOC: EC 12:37
DX: S69.82XA Other specified injuries of left wrist, hand and finger(s), initial encounter (principal); I10 Essential (primary) hypertension; E11.9 Type 2 diabetes mellitus without complications; E07.9 Disorder of thyroid, unspecified; Z79.4 Long term (current) use of insulin; Z91.040 Latex allergy status; Z88.2 Allergy status to sulfonamides; Z98.51 Tubal ligation status; W01.0XXA Fall on same level from slipping, tripping and stumbling without subsequent striking against object, initial encounter
CPT/HCPCS: 29125; 99283

== ENCOUNTER 2021-10-06 09:50 | Inpatient (IN) | payer MEDICARE ==
[2021-10-06] MEDS ORDERED: MORPHINE SULFATE 2 MG/ML SYRINGE IVP STA (12:27)
--- NOTE | 2021-10-06 12:36 | ED ---
General Adult HPI - General Chief complaint: Fall Stated complaint: fall, rib pain Time Seen by Provider: 10/06/21 12:04 Source: patient, family Mode of arrival: wheelchair Limitations: no limitations - History of Present Illness Initial comments: This 76-year-old female presents to emergency department after she slipped and fell in the bathroom on Monday morning. Patient and her state that they recently put a new rug down by the bathtub next to the toilet to catch the water from the shower. Patient states she slipped on the rug and fell, hitting the right side of her back on the toilet. Patient states she did not hit her head and denies any loss of consciousness. She states she remembers the entire fall. Patient states she has been taking Aleve for the pain which has seemed to help a little bit. She states her pain is in her right flank, radiating to her abdomen. Patient states when she puts pressure over the area seems to relieve the pain slightly, however when she moves it does cause more pain. Patient also states she is been having increased erythema and tenderness to her lower extremities, left worse than right. She states she has had cellulitis in her past which should require antibiotics. She denies any fever. Patient denies any chest pain, shortness of breath, nausea, vomiting, change in bowel or bladder, change in vision, headache, dizziness, lightheadedness, double/blurred vision, confusion, weakness, low back pain, bowel or bladder retention. in room does state that she has been acting as normal, no confusion or change in mental status/behavior present. - Related Data Home Medications Medication Instructions Recorded Confirmed Insulin Glargine,Hum.rec.anlog 35 unit SQ DAILY 06/21/18 10/06/21 [Lantus Solostar Pen] Pioglitazone [Actos] 45 mg PO DAILY 06/21/18 10/06/21 Simvastatin [Zocor] 20 mg PO HS 06/21/18 10/06/21 FLUoxetine HCL [PROzac] 40 mg PO DAILY 02/20/20 10/06/21 Memantine [Namenda] 10 mg PO BID 02/20/20 10/06/21 buPROPion HCL [Wellbutrin SR] 200 mg PO BID 02/20/20 10/06/21 glipiZIDE [Glucotrol] 10 mg PO BID 02/20/20 10/06/21 Furosemide [Lasix] 40 mg PO BID 06/12/21 10/06/21 Levothyroxine Sodium [Synthroid] 125 mcg PO DAILY 06/12/21 10/06/21 Losartan Potassium [Cozaar] 100 mg PO DAILY 06/12/21 10/06/21 Mirabegron [Myrbetriq] 50 mg PO DAILY 06/12/21 10/06/21 Cranberry Fruit Concentrate [Azo 250 mg PO DAILY 10/06/21 10/06/21 Cranberry] Methenamine Hippurate 1 gm PO BID 10/06/21 10/06/21 Allergies Allergy/AdvReac Type Severity Reaction Status Date / Time latex Allergy Rash/Hives Verified 10/06/21 12:42 metformin Allergy Rash/Hives Verified 10/06/21 12:42 Sulfa (Sulfonamide Allergy Anaphylaxis Verified 10/06/21 12:42 Antibiotics) Review of Systems ROS Statement: Those systems with pertinent positive or pertinent negative responses have been documented in the HPI. ROS Other: All systems not noted in ROS Statement are negative. Past Medical History Past Medical History: Diabetes Mellitus, Hypertension, Thyroid Disorder Additional Past Medical History / Comment(s): URINARY INCONTINENCE, "cognitive disorder" History of Any Multi-Drug Resistant Organisms: None Reported Past Surgical History: Back Surgery, Tubal Ligation Additional Past Surgical History / Comment(s): Tubal ligation Past Anesthesia/Blood Transfusion Reactions: No Reported Reaction Past Psychological History: No Psychological Hx Reported Smoking Status: Never smoker Past Alcohol Use History: None Reported Past Drug Use History: None Reported - Past Family History Father Family Medical History: Cancer General Exam Limitations: no limitations General appearance: alert, in no apparent distress Head exam: Present: atraumatic, normocephalic Eye exam: Present: normal appearance, PERRL, EOMI Pupils: Present: normal accommodation ENT exam: Present: mucous membranes moist Neck exam: Present: normal inspection, full ROM. Absent: tenderness, meningismus Respiratory exam: Present: normal lung sounds bilaterally. Absent: respiratory distress, wheezes, rales, rhonchi, stridor Cardiovascular Exam: Present: regular rate, normal rhythm, normal heart sounds. Absent: systolic murmur, diastolic murmur, rubs, gallop, clicks GI/Abdominal exam: Present: soft, normal bowel sounds, other (Tenderness to palpation over right flank, right lower and upper abdomen, lateral side of the abdomen.). Absent: distended, tenderness, guarding, rebound, rigid Extremities exam: Present: full ROM, tenderness (Erythema and slight tenderness to left lower extremity, circumferential. states she has had cellulitis in the past. states LE are usually is a little bit red, however it has flared up today. Right lower extremity with mild erythema to zaidi. Lower extremity pulses are palpable.), normal capillary refill, pedal edema (+2), other (No tenderness to patient's shoulders, elbow, wrists, hip, knee, ankle.). Absent: joint swelling, calf tenderness Back exam: Present: CVA tenderness (R), paraspinal tenderness (There is a bruise 5x4 to the right flank. Pain to palpation over right posterior ribs ) Neurological exam: Present: alert, oriented X3, CN II-XII intact, normal gait, reflexes normal, other (Patient neurologically intact). Absent: motor sensory deficit Psychiatric exam: Present: normal affect, normal mood Skin exam: Present: warm, dry, intact. Absent: rash Course Vital Signs 10/06/21 10/06/21 10:28 16:09 Temperature 97.8 F 98.4 F Pulse Rate 85 91 Respiratory 18 18 Rate Blood Pressure 151/71 190/76 O2 Sat by Pulse 97 97 Oximetry Medical Decision Making - Medical Decision Making This 76-year-old female presents emergency Department after a fall >42 hours ago, hitting the right side of her back and now experiencing right-sided flank and abdominal pain. Patient with cellulitis to left lower extremity, beginning on her right lower extremity zaidi. X-ray ribs bilateral with PA chest x-ray impression: Subtle right seventh rib fracture. No pneumothorax is evident. Lungs appear clear. No left rib fractures evident. X-ray hip pelvis without an y acute abnormalities. CT abdomen and pelvis impression: No acute injury seen in the abdomen or pelvis. Nondisplaced to minimally displaced fractures of the right sixth, seventh, and eighth ribs with healing fracture of the anterior aspect of the left sixth rib as described above. Minimal right pleural fluid, possibly reactive to the right rib fractures, please correlate clinically. Other incidental findings as described above. Patient started on IV Rocephin. Blood cultures and lactic acid pending. I spoke to Dr. Rubio who agreed to admit patient to his services. Patient verbally agreed to plan. - Lab Data Result diagrams: 10/06/21 12:55 10/06/21 12:55 Lab Results 10/06/21 10/06/21 Range/Units 12:55 12:55 WBC 6.5 (3.8-10.6) k/uL RBC 3.60 L (3.80-5.40) m/uL Hgb 11.9 (11.4-16.0) gm/dL Hct 36.8 (34.0-46.0) % MCV 102.4 H (80.0-100.0) fL MCH 33.1 (25.0-35.0) pg MCHC 32.3 (31.0-37.0) g/dL RDW 13.3 (11.5-15.5) % Plt Count 320 (150-450) k/uL MPV 7.1 Neutrophils % 76 % Lymphocytes % 14 % Monocytes % 5 % Eosinophils % 2 % Basophils % 1 % Neutrophils # 4.9 (1.3-7.7) k/uL Lymphocytes # 0.9 L (1.0-4.8) k/uL Monocytes # 0.3 (0-1.0) k/uL Eosinophils # 0.1 (0-0.7) k/uL Basophils # 0.0 (0-0.2) k/uL Macrocytosis Slight Sodium 139 (137-145) mmol/L Potassium 3.5 (3.5-5.1) mmol/L Chloride 101 (98-107) mmol/L Carbon Dioxide 34 H (22-30) mmol/L Anion Gap 4 mmol/L BUN 21 H (7-17) mg/dL Creatinine 0.92 (0.52-1.04) mg/dL Est GFR (CKD-EPI)AfAm 69 (>60 ml/min/1.73 sqM) Est GFR (CKD-EPI)NonAf 60 (>60 ml/min/1.73 sqM) Glucose 148 H (74-99) mg/dL Calcium 9.2 (8.4-10.2) mg/dL Total Bilirubin 0.5 (0.2-1.3) mg/dL AST 28 (14-36) U/L ALT 26 (4-34) U/L Alkaline Phosphatase 133 H (38-126) U/L Total Protein 6.7 (6.3-8.2) g/dL Albumin 3.6 (3.5-5.0) g/dL Disposition Clinical Impression: Bilateral lower leg cellulitis, Multiple rib fractures, Fall Disposition: ADMITTED IP TO THIS HOSP Condition: Serious Referrals: Tina Quesada MD [Primary Care Provider] - 1-2 days Time of Disposition: 16:23
[2021-10-06 13:05] LABS: Basophils % (A) 1 %; Eosinophils # (A) 0.1 k/uL (0-0.7); Eosinophils % (A) 2 %; HCT 36.8 % (34.0-46.0); HGB 11.9 gm/dL (11.4-16.0); Lymphocytes # (A) 0.9 k/uL (1.0-4.8); Lymphocytes % (A) 14 %; MCH 33.1 pg (25.0-35.0); MCHC 32.3 g/dL (31.0-37.0); MCV 102.4 fL (80.0-100.0); Macrocytosis Slight; Mean Platelet Volume 7.1; Monocytes # (A) 0.3 k/uL (0-1.0); Monocytes % (A) 5 %; Neutrophils # (A) 4.9 k/uL (1.3-7.7); Neutrophils % (A) 76 %; Platelet Count 320 k/uL (150-450); RDW 13.3 % (11.5-15.5); WBC 6.5 k/uL (3.8-10.6)
[2021-10-06 13:15] LABS: Albumin 3.6 g/dL (3.5-5.0); Calcium 9.2 mg/dL (8.4-10.2); Potassium 3.5 mmol/L (3.5-5.1); Total Bilirubin 0.5 mg/dL (0.2-1.3); Total Protein 6.7 g/dL (6.3-8.2)
[2021-10-06] MEDS ORDERED: SODIUM CHLORIDE 0.9% 500 ML 500 ML IV STA (13:27)
--- NOTE | 2021-10-06 14:53 | XR ---
EXAMINATION TYPE: XR Hip RT and AP Pelvis DATE OF EXAM: 10/06/2021 COMPARISON: None HISTORY: Fall 2 days prior, pain TECHNIQUE: AP pelvis FINDINGS: Femoral heads articulate with the acetabulum. Screws across the right sacroiliac joint. Lef t sacroiliac joint has mild degenerative change. Postsurgical changes are within the lumbar spine. Sy mphysis pubis appears normal. No acute fractures are identified. Follow up exams can be performed 7-1 0 days from acute trauma for continued pain. IMPRESSION: 1. No acute fractures in the postsurgical pelvis.
--- NOTE | 2021-10-06 14:55 | XR ---
EXAMINATION TYPE: XR ribs bilat w pa chest xray DATE OF EXAM: 10/06/2021 COMPARISON: Chest x-ray 06/12/2021 HISTORY: Fall, pain TECHNIQUE: 2 view bilateral rib supplemental frontal chest FINDINGS: Heart size is normal. Pulmonary vasculature is normal. The lungs are clear. No pneumothorax is evident. There is a subtle seventh rib fracture on the right with minimal displacement. No pneumothorax is brant dent. Lungs appear clear. No left rib fractures evident. IMPRESSION: 1. Subtle right seventh rib fracture.
--- NOTE | 2021-10-06 15:51 | CT ---
EXAMINATION TYPE: CT abdomen pelvis w con DATE OF EXAM: 10/06/2021 COMPARISON: CT dated 01/11/2019 HISTORY: Right sided abdominal pain after fall. CT DLP: 1603.8 mGycm Automated exposure control for dose reduction was used. TECHNIQUE: Helical acquisition of images was performed from the lung bases through the pelvis. CONTRAST: Performed without Oral Contrast and with IV Contrast, patient injected with 80 mL of Isovue 300. FINDINGS: Unremarkable liver, gallbladder, spleen and adrenals. Marked fatty infiltration of the pancreas. Slig htly smaller left kidney with dense calcification at the origin of the left renal artery. Right simpl e renal cyst without suspicious features, otherwise grossly unremarkable kidneys. Unremarkable urinar y bladder. No gross uterine mass. Left ovary cyst measuring 17 mm compared to [address] scan, for correlation with pelvic ultras ound results. No gross right adnexal mass. Small sliding hiatal hernia. Mild nonspecific wall thicken ing of the gastric pylorus, otherwise unremarkable undistended stomach, duodenum and small bowel. Sig moid colon diverticulosis without evidence of acute diverticulitis. Questionable small left fat-conta ining inguinal hernia. No pathologically enlarged abdominal or pelvic lymph nodes. No sizable ascites. Small fat-containing umbilical hernia. Minimal right pleural fluid. Questionable cardiomegaly. Osteopenia. Nondisplaced to minimally displaced fractures of the right sixth, seventh a nd eighth ribs, please correlate clinically. Healing fracture of the anterior aspect of the left sixt h rib. Previous lower lumbar fixation and the right sacroiliac fixation. Degenerative changes of the lower thoracic and lumbar spine. IMPRESSION: 1. No acute injury is seen in the abdomen or the pelvis. 2. Nondisplaced to minimally displaced fractures of the right sixth, seventh and eighth ribs with hea ling fracture of the anterior aspect of the left sixth rib as described above. Minimal right pleural fluid, possibly reactive to the right rib fractures, please correlate clinically. Other incidental fi ndings as described above.
[2021-10-06] MEDS ORDERED: ONDANSETRON 4 MG/2 ML VIAL IVP PRN (16:24)
[2021-10-06] MEDS ORDERED: NALOXONE 0.4 MG/ML 1 ML VIAL IV PRN (16:24)
[2021-10-06 16:54] LABS: Glucose,Whole Blood 30 mg/dL (75-99)
[2021-10-06 16:59] LABS: Glucose,Whole Blood 55 mg/dL (75-99)
[2021-10-06 17:15] LABS: Glucose,Whole Blood 84 mg/dL (75-99)
[2021-10-06 17:53] LABS: Glucose,Whole Blood 129 mg/dL (75-99)
[2021-10-06] MEDS: SODIUM CHLORIDE 0.9% 1,000 ML IV SCH (18:03)
[2021-10-06 18:40] LABS: Glucose,Whole Blood 185 mg/dL (75-99)
[2021-10-06] MEDS: MEMANTINE 10 MG TAB PO SCH (20:54)
[2021-10-06] MEDS: buPROPion SR 100 MG TABLET.ER PO SCH (20:54)
[2021-10-06] MEDS: NON FORMULARY DRUG (Methenamine Hippurate [Methenamine Hippurate] 1 GM Tablet) PO SCH (20:54)
[2021-10-06] MEDS: FUROSEMIDE 40 MG TAB PO SCH (20:54)
[2021-10-06] MEDS: ATORVASTATIN 10 MG TAB PO SCH (20:54)
[2021-10-06 22:56] LABS: Glucose,Whole Blood 185 mg/dL (75-99)
[2021-10-07] MEDS: NON FORMULARY DRUG (Methenamine Hippurate [Methenamine Hippurate] 1 GM Tablet) PO SCH ×3 (02:49→19:33)
[2021-10-07] MEDS: MORPHINE SULFATE 2 MG/ML SYRINGE IV PRN ×3 (04:30→19:26)
[2021-10-07 04:31] LABS: Glucose,Whole Blood 72 mg/dL (75-99)
[2021-10-07] MEDS: LEVOTHYROXINE 125 MCG TAB PO SCH (06:32)
[2021-10-07] MEDS: SODIUM CHLORIDE 0.9% 1,000 ML IV SCH ×2 (06:38→19:27)
[2021-10-07 07:29] LABS: Glucose,Whole Blood 83 mg/dL (75-99)
[2021-10-07] MEDS: buPROPion SR 100 MG TABLET.ER PO SCH ×2 (08:15→19:25)
[2021-10-07] MEDS: PIOGLITAZONE 45 MG TAB PO SCH (08:16)
[2021-10-07] MEDS: INSULIN DETEMIR (LEVEMIR) 100 UNIT/ML SYR SQ SCH (08:16)
[2021-10-07] MEDS: FLUoxetine HCL 20 MG CAP PO SCH (08:16)
[2021-10-07] MEDS: MEMANTINE 10 MG TAB PO SCH ×2 (08:17→19:25)
[2021-10-07] MEDS: NON FORMULARY DRUG (Mirabegron [Myrbetriq] 50 MG Tablet) PO SCH (08:17)
[2021-10-07] MEDS: FUROSEMIDE 40 MG TAB PO SCH ×2 (08:20→19:26)
[2021-10-07] MEDS: LOSARTAN 50 MG TAB PO SCH (08:20)
[2021-10-07] MEDS: ENOXAPARIN 40 MG/0.4 ML SYRINGE SQ SCH (08:20)
--- NOTE | 2021-10-07 08:47 | P.HPIM ---
History of Present Illness H&P Date: 10/06/21 Shiloh Hampton, is a 76-year-old female who presented to [facility] emergency room with a chief complaint of fall at home with severe pain in the right flank area, patient stated that she tripped on the rug in the bathroom and hit the right side of her chest on the toilet, she denies any loss of consciousness, she denies any dizziness chest pain or shortness of breath prior to the fall. She was evaluated in the emergency room vital examination on presentation revealed a temperature of 97.8 pulse 85 respiration 18 blood pressure 151/71 pulse ox 97% on room air Laboratory data revealed a white blood count of 6.5 hemoglobin 11.9 platelet count 320 sodium 139 potassium 3.5 chloride 101 CO2 34 BUN 21 creatinine 0.9 to glucose level 148 Testing in the emergency room revealed x-ray of the right hip revealed no evidence of acute fracture, chest x-ray and rib x-ray revealed evidence of minimally displaced fracture in the right seventh rib, computed tomography scan of the abdomen revealed no acute abnormality in the abdomen and pelvis, but also revealed evidence of fractures on the right sixth, seventh and eighth ribs. On evaluation in the emergency room patient was found to have severe erythema and swelling in bilateral lower extremities she was diagnosed was acute bilateral lower extremity cellulitis and was started on IV antibiotics. Patient was admitted to medical floor for further evaluation and treatment Past Medical History Past Medical History: Diabetes Mellitus, Hypertension, Thyroid Disorder Additional Past Medical History / Comment(s): URINARY INCONTINENCE, "cognitive disorder" History of Any Multi-Drug Resistant Organisms: None Reported Past Surgical History: Back Surgery, Tubal Ligation Additional Past Surgical History / Comment(s): Tubal ligation Past Anesthesia/Blood Transfusion Reactions: No Reported Reaction Past Psychological History: No Psychological Hx Reported Smoking Status: Never smoker Past Alcohol Use History: None Reported Past Drug Use History: None Reported - Past Family History Father Family Medical History: Cancer Medications and Allergies Home Medications Medication Instructions Recorded Confirmed Type Insulin Glargine,Hum.rec.anlog 35 unit SQ DAILY 06/21/18 10/06/21 History [Lantus Solostar Pen] Pioglitazone [Actos] 45 mg PO DAILY 06/21/18 10/06/21 History Simvastatin [Zocor] 20 mg PO HS 06/21/18 10/06/21 History FLUoxetine HCL [PROzac] 40 mg PO DAILY 02/20/20 10/06/21 History Memantine [Namenda] 10 mg PO BID 02/20/20 10/06/21 History buPROPion HCL [Wellbutrin SR] 200 mg PO BID 02/20/20 10/06/21 History glipiZIDE [Glucotrol] 10 mg PO BID 02/20/20 10/06/21 History Furosemide [Lasix] 40 mg PO BID 06/12/21 10/06/21 History Levothyroxine Sodium [Synthroid] 125 mcg PO DAILY 06/12/21 10/06/21 History Losartan Potassium [Cozaar] 100 mg PO DAILY 06/12/21 10/06/21 History Mirabegron [Myrbetriq] 50 mg PO DAILY 06/12/21 10/06/21 History Cranberry Fruit Concentrate [Azo 250 mg PO DAILY 10/06/21 10/06/21 History Cranberry] Methenamine Hippurate 1 gm PO BID 10/06/21 10/06/21 History Allergies Allergy/AdvReac Type Severity Reaction Status Date / Time latex Allergy Rash/Hives Verified 10/06/21 12:42 metformin Allergy Rash/Hives Verified 10/06/21 12:42 Sulfa (Sulfonamide Allergy Anaphylaxis Verified 10/06/21 12:42 Antibiotics) Physical Exam Vitals: Vital Signs Temp Pulse Resp BP Pulse Ox 10/06/21 16:09 98.4 F 91 18 190/76 97 10/06/21 10:28 97.8 F 85 18 151/71 97 Intake and Output 10/06/21 10/06/21 10/06/21 06:59 14:59 22:59 Other: Weight 87.997 kg In general patient is alert and oriented x 3 in no distress HEENT head normocephalic and atraumatic Neck is supple no JVD no goiter no lymphadenopathy no carotid bruit Chest examination is clear to auscultation no crackles no wheezing Cardiac exam reveals regular heart sounds S1 and S2 no gallops no murmurs Abdomen is soft nontender no organomegaly with normal bowel sounds Extremity exam reveals bilateral lower extremity edema and erythema to the pretibial areas Neurological examination reveals no gross focal deficits Results CBC & Chem 7: 10/06/21 12:55 10/06/21 12:55 Labs: Abnormal Lab Results - Last 24 Hours (Table) 10/06/21 10/06/21 10/06/21 Range/Units 12:55 12:55 16:44 RBC 3.60 L (3.80-5.40) m/uL MCV 102.4 H (80.0-100.0) fL Lymphocytes # 0.9 L (1.0-4.8) k/uL Carbon Dioxide 34 H (22-30) mmol/L BUN 21 H (7-17) mg/dL Glucose 148 H (74-99) mg/dL POC Glucose (mg/dL) 30 L (75-99) mg/dL Alkaline Phosphatase 133 H (38-126) U/L 10/06/21 Range/Units 16:57 RBC (3.80-5.40) m/uL MCV (80.0-100.0) fL Lymphocytes # (1.0-4.8) k/uL Carbon Dioxide (22-30) mmol/L BUN (7-17) mg/dL Glucose (74-99) mg/dL POC Glucose (mg/dL) 55 L (75-99) mg/dL Alkaline Phosphatase (38-126) U/L Assessment and Plan Plan: Recent fall with evidence of minimally displaced rib fractures Bilateral lower extremity cellulitis, patient was started on IV cefazolin Generalized weakness, and physical debility Will consult physical therapy and occupational therapy Underlying history of hypertension Underlying history of [id number]-zozzphfiy diabetes mellitus Underlying history of hypothyroidism At this time patient is admitted to medical floor She was started on IV Rocephin in the emergency room will continue Blood culture ordered Will check TSH and hemoglobin A1c Will follow closely
[2021-10-07] MEDS ORDERED: CRANBERRY FRUIT 250 MG PO SCH (09:00)
[2021-10-07 09:27] LABS: Basophils # (A) 0.03 X 10*3/uL (0.00-0.10); Basophils % (A) 0.4 %; Eosinophils # (A) 0.19 X 10*3/uL (0.04-0.35); Eosinophils % (A) 2.8 %; HCT 34.7 % (37.2-46.3); HGB 10.5 g/dL (12.0-15.0); Immature Grans, Automated 0.3 %; Lymphocytes # (A) 0.94 X 10*3/uL (0.90-5.00); Lymphocytes % (A) 14.1 %; MCH 31.4 pg (27.0-32.0); MCHC 30.3 g/dL (32.0-37.0); MCV 103.9 fL (80.0-97.0); Mean Platelet Volume 10.1 fL (9.5-12.2); Monocytes # (A) 0.58 X 10*3/uL (0.20-1.00); Monocytes % (A) 8.7 %; NRBC Per 100 WBC 0 /100 WBCS (0.0-0.0); Neutrophils # (A) 4.93 X 10*3/uL (1.80-7.70); Neutrophils % (A) 73.7 %; Platelet Count 275 X 10*3/uL (140-440); RBC 3.34 X 10*6/uL (4.10-5.20); RDW 13.6 % (11.5-14.5); WBC 6.69 X 10*3/uL (4.50-10.00)
[2021-10-07 09:56] LABS: ALT 25 U/L (8-44); AST 20 U/L (13-35); Albumin 3.5 g/dL (3.8-4.9); Albumin/Globulin Ratio 1.52 (1.60-3.17); Alkaline Phosphatase 116 U/L (41-126); BUN/Creat Ratio 16.11 Ratio (12.00-20.00); Blood Urea Nitrogen 14.5 mg/dL (9.0-27.0); Calcium 9.2 mg/dL (8.7-10.3); Chloride 101 mmol/L (96-109); Globulin 2.3 g/dL (1.6-3.3); Glucose 81 mg/dL (70-110); Non-African American GFR(CKD) 61.2 (60.0-200.0); Potassium 3.8 mmol/L (3.5-5.5); Sodium 143 mmol/L (135-145); Total Bilirubin <0.15 mg/dL (0.30-1.20); Total Protein 5.8 g/dL (6.2-8.2)
[2021-10-07 11:45] LABS: Glucose,Whole Blood 127 mg/dL (75-99)
--- NOTE | 2021-10-07 18:19 | P.PN ---
Subjective Progress Note Date: 10/07/21 Shiloh Hampton, is a 76-year-old female who presented to [facility] emergency room with a chief complaint of fall at home with severe pain in the right flank area, patient stated that she tripped on the rug in the bathroom and hit the right side of her chest on the toilet, she denies any loss of consciousness, she denies any dizziness chest pain or shortness of breath prior to the fall. She was evaluated in the emergency room vital examination on presentation revealed a temperature of 97.8 pulse 85 respiration 18 blood pressure 151/71 pulse ox 97% on room air Laboratory data revealed a white blood count of 6.5 hemoglobin 11.9 platelet count 320 sodium 139 potassium 3.5 chloride 101 CO2 34 BUN 21 creatinine 0.9 to glucose level 148 Testing in the emergency room revealed x-ray of the right hip revealed no evidence of acute fracture, chest x-ray and rib x-ray revealed evidence of minimally displaced fracture in the right seventh rib, computed tomography scan of the abdomen revealed no acute abnormality in the abdomen and pelvis, but also revealed evidence of fractures on the right sixth, seventh and eighth ribs. On evaluation in the emergency room patient was found to have severe erythema and swelling in bilateral lower extremities she was diagnosed was acute bilateral l ower extremity cellulitis and was started on IV antibiotics. Patient was admitted to medical floor for further evaluation and treatment On 10/07/2021 patient was seen and examined on the medical floor she is alert and oriented 3 in no apparent distress there is no fever or chills no headache or dizziness no chest pain no shortness of breath no cough no nausea or vomiting no abdominal pain no diarrhea no blood in the stools no burning with urination no frequency or urgency and no hematuria, she is maintained on IV antibiotic for lower extremity cellulitis, will add physical therapy and occupational therapy and assess if patient needs rehab after this admission. Objective - Vital Signs Vital signs: Vital Signs Temp 98.0 F 10/07/21 08:04 Pulse 92 10/07/21 08:04 Resp 18 10/07/21 08:04 BP 162/72 10/07/21 08:04 Pulse Ox 96 10/07/21 08:04 Intake & Output 10/06/21 10/07/21 10/07/21 18:59 06:59 18:59 Intake Total 75 Balance 75 Weight 87.997 kg Intake: IV 75 Sodium Chloride 0.9% 1, 75 000 ml @ 75 mls/hr IV . [id number] COUNTS INCLUDE 234 BEDS AT THE [facility] Rx#:[id number] - Exam In general patient is alert and oriented x 3 in no distress HEENT head normocephalic and atraumatic Neck is supple no JVD no goiter no lymphadenopathy no carotid bruit Chest examination is clear to auscultation no crackles no wheezing Cardiac exam reveals regular heart sounds S1 and S2 no gallops no murmurs Abdomen is soft nontender no organomegaly with normal bowel sounds Extremity exam reveals bilateral lower extremity edema and erythema to the pretibial areas Neurological examination reveals no gross focal deficits - Labs CBC & Chem 7: 10/07/21 05:25 10/07/21 05:25 Labs: Abnormal Lab Results - Last 24 Hours (Table) 10/06/21 10/06/21 10/06/21 Range/Units 12:55 12:55 16:44 RBC 3.60 L (3.80-5.40) m/uL MCV 102.4 H (80.0-100.0) fL Lymphocytes # 0.9 L (1.0-4.8) k/uL Carbon Dioxide 34 H (22-30) mmol/L BUN 21 H (7-17) mg/dL Glucose 148 H (74-99) mg/dL POC Glucose (mg/dL) 30 L (75-99) mg/dL Alkaline Phosphatase 133 H (38-126) U/L 10/06/21 10/06/21 10/06/21 Range/Units 16:57 17:52 18:38 RBC (3.80-5.40) m/uL MCV (80.0-100.0) fL Lymphocytes # (1.0-4.8) k/uL Carbon Dioxide (22-30) mmol/L BUN (7-17) mg/dL Glucose (74-99) mg/dL POC Glucose (mg/dL) 55 L 129 H 185 H (75-99) mg/dL Alkaline Phosphatase (38-126) U/L 10/06/21 10/07/21 Range/Units 22:54 04:27 RBC (3.80-5.40) m/uL MCV (80.0-100.0) fL Lymphocytes # (1.0-4.8) k/uL Carbon Dioxide (22-30) mmol/L BUN (7-17) mg/dL Glucose (74-99) mg/dL POC Glucose (mg/dL) 185 H 72 L (75-99) mg/dL Alkaline Phosphatase (38-126) U/L Assessment and Plan Plan: Recent fall with evidence of minimally displaced rib fractures Bilateral lower extremity cellulitis, patient was started on IV cefazolin Generalized weakness, and physical debility Will consult physical therapy and occupational therapy Underlying history of hypertension Underlying history of [id number]-pluuzgepe diabetes mellitus Underlying history of hypothyroidism At this time patient is admitted to medical floor She was started on IV Rocephin in the emergency room will continue Blood culture ordered Will check TSH and hemoglobin A1c Will follow closely
[2021-10-07] MEDS: ATORVASTATIN 10 MG TAB PO SCH (19:25)
[2021-10-07 20:30] LABS: Glucose,Whole Blood 185 mg/dL (75-99)
[2021-10-08] MEDS: MORPHINE SULFATE 2 MG/ML SYRINGE IV PRN ×3 (03:47→20:57)
[2021-10-08] MEDS: LEVOTHYROXINE 125 MCG TAB PO SCH (05:50)
[2021-10-08 06:51] LABS: Glucose,Whole Blood 124 mg/dL (75-99)
[2021-10-08] MEDS: INSULIN DETEMIR (LEVEMIR) 100 UNIT/ML SYR SQ SCH (08:06)
[2021-10-08 09:38] LABS: Basophils # (A) 0.05 X 10*3/uL (0.00-0.10); Basophils % (A) 0.7 %; Eosinophils # (A) 0.29 X 10*3/uL (0.04-0.35); Eosinophils % (A) 4.3 %; HCT 33.2 % (37.2-46.3); Immature Grans, Automated 0.1 %; Lymphocytes # (A) 1.23 X 10*3/uL (0.90-5.00); Lymphocytes % (A) 18.4 %; MCH 31.3 pg (27.0-32.0); MCHC 30.1 g/dL (32.0-37.0); MCV 104.1 fL (80.0-97.0); Monocytes # (A) 0.77 X 10*3/uL (0.20-1.00); Monocytes % (A) 11.5 %; NRBC Per 100 WBC 0 /100 WBCS (0.0-0.0); Neutrophils # (A) 4.33 X 10*3/uL (1.80-7.70); Platelet Count 261 X 10*3/uL (140-440); RBC 3.19 X 10*6/uL (4.10-5.20); RDW 13.7 % (11.5-14.5); WBC 6.68 X 10*3/uL (4.50-10.00)
[2021-10-08 10:06] LABS: ALT 22 U/L (8-44); AST 19 U/L (13-35); African American GFR (CKD) 50.1 (60.0-200.0); Albumin 3.4 g/dL (3.8-4.9); Albumin/Globulin Ratio 1.48 (1.60-3.17); Alkaline Phosphatase 111 U/L (41-126); BUN/Creat Ratio 13.67 Ratio (12.00-20.00); Blood Urea Nitrogen 16.4 mg/dL (9.0-27.0); Calcium 8.5 mg/dL (8.7-10.3); Carbon Dioxide 28.7 mmol/L (20.0-27.5); Chloride 103 mmol/L (96-109); Globulin 2.3 g/dL (1.6-3.3); Glucose 117 mg/dL (70-110); Non-African American GFR(CKD) 43.3 (60.0-200.0); Potassium 3.8 mmol/L (3.5-5.5); Sodium 142 mmol/L (135-145); Total Bilirubin <0.15 mg/dL (0.30-1.20); Total Protein 5.7 g/dL (6.2-8.2)
--- NOTE | 2021-10-08 10:44 | P.PN ---
Subjective Progress Note Date: 10/08/21 Shiloh Hampton, is a 76-year-old female who presented to [facility] emergency room with a chief complaint of fall at home with severe pain in the right flank area, patient stated that she tripped on the rug in the bathroom and hit the right side of her chest on the toilet, she denies any loss of consciousness, she denies any dizziness chest pain or shortness of breath prior to the fall. She was evaluated in the emergency room vital examination on presentation revealed a temperature of 97.8 pulse 85 respiration 18 blood pressure 151/71 pulse ox 97% on room air Laboratory data revealed a white blood count of 6.5 hemoglobin 11.9 platelet count 320 sodium 139 potassium 3.5 chloride 101 CO2 34 BUN 21 creatinine 0.9 to glucose level 148 Testing in the emergency room revealed x-ray of the right hip revealed no evidence of acute fracture, chest x-ray and rib x-ray revealed evidence of minimally displaced fracture in the right seventh rib, computed tomography scan of the abdomen revealed no acute abnormality in the abdomen and pelvis, but also revealed evidence of fractures on the right sixth, seventh and eighth ribs. On evaluation in the emergency room patient was found to have severe erythema and swelling in bilateral lower extremities she was diagnosed was acute bilateral l ower extremity cellulitis and was started on IV antibiotics. Patient was admitted to medical floor for further evaluation and treatment On 10/07/2021 patient was seen and examined on the medical floor she is alert and oriented 3 in no apparent distress there is no fever or chills no headache or dizziness no chest pain no shortness of breath no cough no nausea or vomiting no abdominal pain no diarrhea no blood in the stools no burning with urination no frequency or urgency and no hematuria, she is maintained on IV antibiotic for lower extremity cellulitis, will add physical therapy and occupational therapy and assess if patient needs rehab after this admission. 10/08/2021 patient is alert and oriented 3. Patient remains on IV Kefzol. Infectious disease services consulting awaiting ID input. Patient has remained afebrile. Current temp 98.2, heart rate 91, respiratory rate 17 and blood pressure 132/65. Patient denies chest pain or shortness breath. Patient denies nausea vomiting or diarrhea. Patient denies any urinary burning or frequency. Discharge planning in progress social work services consulted Objective - Vital Signs Vital signs: Vital Signs Temp 98.2 F 10/08/21 06:53 Pulse 91 10/08/21 09:02 Resp 17 10/08/21 09:02 BP 167/65 10/08/21 06:53 Pulse Ox 95 10/08/21 06:53 Intake & Output 10/07/21 10/08/21 10/08/21 18:59 06:59 18:59 Intake Total 450 Balance 450 Weight 87.997 kg Intake: IV 450 Sodium Chloride 0.9% 1, 450 000 ml @ 75 mls/hr IV . [id number] [facility] Rx#:[id number] Other: Voiding Method Toilet Toilet # Voids 1 3 - Exam In general patient is alert and oriented x 3 in no distress HEENT head normocephalic and atraumatic Neck is supple no JVD no goiter no lymphadenopathy no carotid bruit Chest examination is clear to auscultation no crackles no wheezing Cardiac exam reveals regular heart sounds S1 and S2 no gallops no murmurs Abdomen is soft nontender no organomegaly with normal bowel sounds Extremity exam reveals bilateral lower extremity edema and erythema to the pretibial areas Neurological examination reveals no gross focal deficits - Labs CBC & Chem 7: 10/08/21 05:48 10/08/21 05:48 Labs: Abnormal Lab Results - Last 24 Hours (Table) 10/07/21 10/07/21 10/08/21 Range/Units 11:43 20:28 05:48 RBC 3.19 L (4.10-5.20) X 10*6/uL Hgb 10.0 L (12.0-15.0) g/dL Hct 33.2 L (37.2-46.3) % MCV 104.1 H (80.0-97.0) fL MCHC 30.1 L (32.0-37.0) g/dL Carbon Dioxide (20.0-27.5) mmol/L Est GFR (CKD-EPI)AfAm (60.0-200.0) Est GFR (CKD-EPI)NonAf (60.0-200.0) Glucose (70-110) mg/dL POC Glucose (mg/dL) 127 H 185 H (75-99) mg/dL Calcium (8.7-10.3) mg/dL Total Bilirubin (0.30-1.20) mg/dL Total Protein (6.2-8.2) g/dL Albumin (3.8-4.9) g/dL Albumin/Globulin Ratio (1.60-3.17) g/dL 10/08/21 10/08/21 Range/Units 05:48 06:49 RBC (4.10-5.20) X 10*6/uL Hgb (12.0-15.0) g/dL Hct (37.2-46.3) % MCV (80.0-97.0) fL MCHC (32.0-37.0) g/dL Carbon Dioxide 28.7 H (20.0-27.5) mmol/L Est GFR (CKD-EPI)AfAm 50.1 L (60.0-200.0) Est GFR (CKD-EPI)NonAf 43.3 L (60.0-200.0) Glucose 117 H (70-110) mg/dL POC Glucose (mg/dL) 124 H (75-99) mg/dL Calcium 8.5 L (8.7-10.3) mg/dL Total Bilirubin <0.15 L (0.30-1.20) mg/dL Total Protein 5.7 L (6.2-8.2) g/dL Albumin 3.4 L (3.8-4.9) g/dL Albumin/Globulin Ratio 1.48 L (1.60-3.17) g/dL Microbiology - Last 24 Hours (Table) 10/06/21 16:23 Blood Culture - Preliminary Blood No Growth after 24 hours 10/06/21 16:05 Blood Culture - Preliminary Blood No Growth after 24 hours Assessment and Plan Plan: Recent fall with evidence of minimally displaced rib fractures Bilateral lower extremity cellulitis, patient was started on IV cefazolin Generalized weakness, and physical debility Will consult physical therapy and occupational therapy Underlying history of hypertension Underlying history of [id number] diabetes mellitus Underlying history of hypothyroidism DVT prophylaxis Lovenox. GI prophylaxis At this time patient is admitted to medical floor She was started on IV Rocephin in the emergency room will continue Blood culture ordered Infectious disease service is consulted Will check TSH and hemoglobin A1c Social work service is consulted for discharge planning Will follow closely
[2021-10-08] MEDS: MEMANTINE 10 MG TAB PO SCH ×2 (10:47→20:52)
[2021-10-08] MEDS: PIOGLITAZONE 45 MG TAB PO SCH (10:47)
[2021-10-08] MEDS: buPROPion SR 100 MG TABLET.ER PO SCH ×2 (10:47→20:52)
[2021-10-08] MEDS: ENOXAPARIN 40 MG/0.4 ML SYRINGE SQ SCH (10:47)
[2021-10-08] MEDS: FLUoxetine HCL 20 MG CAP PO SCH (10:47)
[2021-10-08] MEDS: LOSARTAN 50 MG TAB PO SCH (10:47)
[2021-10-08] MEDS: FUROSEMIDE 40 MG TAB PO SCH ×2 (10:47→20:52)
[2021-10-08] MEDS: NON FORMULARY DRUG (Mirabegron [Myrbetriq] 50 MG Tablet) PO SCH (10:49)
[2021-10-08] MEDS: NON FORMULARY DRUG (Methenamine Hippurate [Methenamine Hippurate] 1 GM Tablet) PO SCH ×2 (10:49→20:49)
[2021-10-08] MEDS: SODIUM CHLORIDE 0.9% 1,000 ML IV SCH (10:50)
[2021-10-08 11:28] LABS: Glucose,Whole Blood 174 mg/dL (75-99)
--- NOTE | 2021-10-08 12:59 | P.PN ---
Progress Note - Text Progress Note Date: 10/08/21 Discussed possibility of discharge to home with patient and her . is very worried because of weakness and multiple fall. patient still having severe pain in the chest site of multiple broken ribs. Patient has not seen yet by infectious disease. She has not been evaluated yet by physical therapy and occupational therapy. Patient and requesting to delay discharge until physical therapy evaluation is done to assess for safety at home.
[2021-10-08 16:11] LABS: Glucose,Whole Blood 224 mg/dL (75-99)
[2021-10-08] MEDS: ATORVASTATIN 10 MG TAB PO SCH (20:52)
--- NOTE | 2021-10-08 23:32 | P.CONS ---
History of Present Illness - Reason for Consult Consult date: 10/08/21 bilateral leg cellulitis Requesting physician: Quinton Rubio - Chief Complaint fall and right sided chest pain x few days - History of Present Illness History of Present Illness : Patient is a 76-year female presented to the hospital 2 days ago after apparently the patient slipped and fell in the bathroom, patient in the right side of her back on the toilet denies any loss of consciousness patient has been complaining of Aleve for the pain with minimal improvement patient describes the pain to the right site 5 to 6 days and no radiation, patient also complaining of erythema and tenderness to lower extremity left worse than the right patient denies having any fever or any chills and the patient did not have any fever on presentation to the hospital patient did have a normal white count with no left shift creatinine was normal hodgson PCR was negative blood culture has been negative patient did have a CT of abdominal pelvis no acute injury seen the abdominal pelvis nondisplaced to minimally displaced fracture of the right sixth seventh and eighth ribs patient has been treated with cefazolin infectious disease was consulted with concern for lower extremity cellulitis Review of system: CONSTITUTIONAL: Positive for weakness denies high-grade fever. EYES: No complaint. ENT: No complaint. RESPIRATORY: As per history of present illness. CARDIOVASCULAR: No complaint. GENITOURINARY: No complaint. GASTROINTESTINAL: No complaint. MUSCULOSKELETAL: No complaint. INTEGUMENTARY : As per history of present illness. PSYCHOLOGIC: No complaint. ENDOCRINE: No complaint. NEUROLOGIC: No complaint. Past medical history : Reviewed, documented below Past surgical history : Reviewed, documented below Social history: Reviewed, documented below Medications: Reviewed, as documented below EXAMINATION: Vital sigans= Reviewed and documented below GENERAL DESCRIPTION: Elderly female lying in bed, no distress. No tachypnea or accessory muscle of respiration use. HEENT: Shows Pallor , no scleral icterus. Oral mucous membrane is dry. NECK: Trachea central, no thyromegaly. LUNGS: Unlabored breathing. Clear to auscultation anteriorly. No wheeze or cr ackle. HEART: S1, S2, regular rate and rhythm. ABDOMEN: Soft, no tenderness , guarding or rigidity EXTREMITIES: Bilateral lower extremity edema and erythema to the pretibial areas no open wound or any drainage SKIN: No rash, no masses palpable. NEUROLOGICAL: The patient is awake, alert, oriented x3, mood and affect normal. LABS AND RADIOLOGY: Reviewed results see below Assessment : Patient with bilateral lower extremity edema along with erythema with diffuse swelling and redness likely streptococcal cellulitis clinically doubt MRSA or gram-negative infection Plan: 1-adjust dose of cefazolin to 2 g every 8 hours 2-Marked the area of the redness 3-Lake wrap to keep the swelling down We will follow on clinical condition and cultures to further adjust medication if needed Thank you for this consultation we will follow the patient along with you Past Medical History Past Medical History: Diabetes Mellitus, Hypertension, Thyroid Disorder Additional Past Medical History / Comment(s): URINARY INCONTINENCE, "cognitive d isorder" History of Any Multi-Drug Resistant Organisms: None Reported Past Surgical History: Back Surgery, Tubal Ligation Additional Past Surgical History / Comment(s): Tubal ligation Past Anesthesia/Blood Transfusion Reactions: No Reported Reaction Past Psychological History: No Psychological Hx Reported Smoking Status: Never smoker Past Alcohol Use History: None Reported Additional Past Alcohol Use History / Comment(s): SMOKED FOR 4 YRS A TEEN, 1PPD Past Drug Use History: None Reported - Past Family History Father Family Medical History: Cancer Medications and Allergies Home Medications Medication Instructions Recorded Confirmed Type Insulin Glargine,Hum.rec.anlog 35 unit SQ DAILY 06/21/18 10/06/21 History [Lantus Solostar Pen] Pioglitazone [Actos] 45 mg PO DAILY 06/21/18 10/06/21 History Simvastatin [Zocor] 20 mg PO HS 06/21/18 10/06/21 History FLUoxetine HCL [PROzac] 40 mg PO DAILY 02/20/20 10/06/21 History Memantine [Namenda] 10 mg PO BID 02/20/20 10/06/21 History buPROPion HCL [Wellbutrin SR] 200 mg PO BID 02/20/20 10/06/21 History glipiZIDE [Glucotrol] 10 mg PO BID 02/20/20 10/06/21 History Furosemide [Lasix] 40 mg PO BID 06/12/21 10/06/21 History Levothyroxine Sodium [Synthroid] 125 mcg PO DAILY 06/12/21 10/06/21 History Losartan Potassium [Cozaar] 100 mg PO DAILY 06/12/21 10/06/21 History Mirabegron [Myrbetriq] 50 mg PO DAILY 06/12/21 10/06/21 History Cranberry Fruit Concentrate [Azo 250 mg PO DAILY 10/06/21 10/06/21 History Cranberry] Methenamine Hippurate 1 gm PO BID 10/06/21 10/06/21 History Allergies Allergy/AdvReac Type Severity Reaction Status Date / Time latex Allergy Rash/Hives Verified 10/06/21 12:42 metformin Allergy Rash/Hives Verified 10/06/21 12:42 Sulfa (Sulfonamide Allergy Anaphylaxis Verified 10/06/21 12:42 Antibiotics) Physical Exam Vitals: Vital Signs Temp Pulse Resp BP Pulse Ox 10/08/21 09:02 91 17 10/08/21 06:53 98.2 F 91 17 167/65 95 10/08/21 01:37 98.6 F 99 14 132/65 92 L 10/07/21 19:42 98.7 F 93 14 129/64 93 L 10/07/21 17:09 98.4 F 92 17 123/63 96 10/07/21 13:25 18 10/07/21 13:19 98.5 F 94 18 131/62 96 Intake and Output 10/07/21 10/08/21 10/08/21 22:59 06:59 14:59 Other: Voiding Method Toilet Toilet # Voids 3 Results CBC & Chem 7: 10/08/21 05:48 10/08/21 05:48 Labs: Abnormal Lab Results - Last 24 Hours (Table) 10/07/21 10/08/21 10/08/21 Range/Units 20:28 05:48 05:48 RBC 3.19 L (4.10-5.20) X 10*6/uL Hgb 10.0 L (12.0-15.0) g/dL Hct 33.2 L (37.2-46.3) % MCV 104.1 H (80.0-97.0) fL MCHC 30.1 L (32.0-37.0) g/dL Carbon Dioxide 28.7 H (20.0-27.5) mmol/L Est GFR (CKD-EPI)AfAm 50.1 L (60.0-200.0) Est GFR (CKD-EPI)NonAf 43.3 L (60.0-200.0) Glucose 117 H (70-110) mg/dL POC Glucose (mg/dL) 185 H (75-99) mg/dL Calcium 8.5 L (8.7-10.3) mg/dL Total Bilirubin <0.15 L (0.30-1.20) mg/dL Total Protein 5.7 L (6.2-8.2) g/dL Albumin 3.4 L (3.8-4.9) g/dL Albumin/Globulin Ratio 1.48 L (1.60-3.17) g/dL 10/08/21 10/08/21 Range/Units 06:49 11:25 RBC (4.10-5.20) X 10*6/uL Hgb (12.0-15.0) g/dL Hct (37.2-46.3) % MCV (80.0-97.0) fL MCHC (32.0-37.0) g/dL Carbon Dioxide (20.0-27.5) mmol/L Est GFR (CKD-EPI)AfAm (60.0-200.0) Est GFR (CKD-EPI)NonAf (60.0-200.0) Glucose (70-110) mg/dL POC Glucose (mg/dL) 124 H 174 H (75-99) mg/dL Calcium (8.7-10.3) mg/dL Total Bilirubin (0.30-1.20) mg/dL Total Protein (6.2-8.2) g/dL Albumin (3.8-4.9) g/dL Albumin/Globulin Ratio (1.60-3.17) g/dL Microbiology - Last 24 Hours (Table) 10/06/21 16:23 Blood Culture - Preliminary Blood No Growth after 24 hours 10/06/21 16:05 Blood Culture - Preliminary Blood No Growth after 24 hours
[2021-10-09] MEDS: SODIUM CHLORIDE 0.9% 1,000 ML IV SCH ×2 (02:19→10:52)
[2021-10-09] MEDS: LEVOTHYROXINE 125 MCG TAB PO SCH (05:57)
[2021-10-09 06:49] LABS: Glucose,Whole Blood 148 mg/dL (75-99)
[2021-10-09] MEDS: MEMANTINE 10 MG TAB PO SCH ×2 (08:49→20:26)
[2021-10-09] MEDS: INSULIN DETEMIR (LEVEMIR) 100 UNIT/ML SYR SQ SCH (08:49)
[2021-10-09] MEDS: FUROSEMIDE 40 MG TAB PO SCH ×2 (08:49→20:26)
[2021-10-09] MEDS: buPROPion SR 100 MG TABLET.ER PO SCH ×2 (08:49→20:26)
[2021-10-09] MEDS: PIOGLITAZONE 45 MG TAB PO SCH (08:49)
[2021-10-09] MEDS: LOSARTAN 50 MG TAB PO SCH (08:49)
[2021-10-09] MEDS: PANTOPRAZOLE 40 MG TABLET PO SCH (08:49)
[2021-10-09] MEDS: FLUoxetine HCL 20 MG CAP PO SCH (08:49)
[2021-10-09 08:58] LABS: Basophils # (A) 0.05 X 10*3/uL (0.00-0.10); Basophils % (A) 0.7 %; Eosinophils # (A) 0.34 X 10*3/uL (0.04-0.35); Eosinophils % (A) 5.1 %; HGB 9.8 g/dL (12.0-15.0); Immature Grans, Automated 0.1 %; Lymphocytes % (A) 20.9 %; MCH 31.8 pg (27.0-32.0); MCHC 30.6 g/dL (32.0-37.0); MCV 103.9 fL (80.0-97.0); Mean Platelet Volume 9.9 fL (9.5-12.2); Monocytes # (A) 0.73 X 10*3/uL (0.20-1.00); Monocytes % (A) 10.9 %; NRBC Per 100 WBC 0 /100 WBCS (0.0-0.0); Neutrophils # (A) 4.17 X 10*3/uL (1.80-7.70); Neutrophils % (A) 62.3 %; Platelet Count 259 X 10*3/uL (140-440); RBC 3.08 X 10*6/uL (4.10-5.20); RDW 13.5 % (11.5-14.5)
[2021-10-09 08:59] LABS: ALT 17 U/L (8-44); AST 18 U/L (13-35); Albumin 3.4 g/dL (3.8-4.9); Albumin/Globulin Ratio 1.48 (1.60-3.17); Alkaline Phosphatase 112 U/L (41-126); BUN/Creat Ratio 13.44 Ratio (12.00-20.00); Blood Urea Nitrogen 12.1 mg/dL (9.0-27.0); Calcium 8.5 mg/dL (8.7-10.3); Carbon Dioxide 28.3 mmol/L (20.0-27.5); Chloride 102 mmol/L (96-109); Globulin 2.3 g/dL (1.6-3.3); Glucose 160 mg/dL (70-110); Non-African American GFR(CKD) 61.2 (60.0-200.0); Potassium 3.4 mmol/L (3.5-5.5); Sodium 141 mmol/L (135-145); Total Bilirubin <0.15 mg/dL (0.30-1.20); Total Protein 5.7 g/dL (6.2-8.2)
[2021-10-09] MEDS: MORPHINE SULFATE 2 MG/ML SYRINGE IV PRN (09:00)
[2021-10-09] MEDS ORDERED: ENOXAPARIN 30 MG/0.3 ML SYRINGE SQ SCH (09:00)
[2021-10-09] MEDS: NON FORMULARY DRUG (Mirabegron [Myrbetriq] 50 MG Tablet) PO SCH (09:33)
[2021-10-09] MEDS: NON FORMULARY DRUG (Methenamine Hippurate [Methenamine Hippurate] 1 GM Tablet) PO SCH ×2 (09:33→20:26)
[2021-10-09] MEDS ORDERED: MORPHINE SULFATE 2 MG/ML SYRINGE IV PRN (11:31)
[2021-10-09] MEDS ORDERED: ACETAMINOPHEN TAB 500 MG TAB PO PRN (11:31)
[2021-10-09] MEDS ORDERED: Potassium Replacement Protocol 1 EACH MISC MISCELLANE PRN (11:33)
--- NOTE | 2021-10-09 11:33 | P.PN ---
Subjective Progress Note Date: 10/09/21 Shiloh Hampton, is a 76-year-old female who presented to [facility] emergency room with a chief complaint of fall at home with severe pain in the right flank area, patient stated that she tripped on the rug in the bathroom and hit the right side of her chest on the toilet, she denies any loss of consciousness, she denies any dizziness chest pain or shortness of breath prior to the fall. She was evaluated in the emergency room vital examination on presentation revealed a temperature of 97.8 pulse 85 respiration 18 blood pressure 151/71 pulse ox 97% on room air Laboratory data revealed a white blood count of 6.5 hemoglobin 11.9 platelet count 320 sodium 139 potassium 3.5 chloride 101 CO2 34 BUN 21 creatinine 0.9 to glucose level 148 Testing in the emergency room revealed x-ray of the right hip revealed no evidence of acute fracture, chest x-ray and rib x-ray revealed evidence of minimally displaced fracture in the right seventh rib, computed tomography scan of the abdomen revealed no acute abnormality in the abdomen and pelvis, but also revealed evidence of fractures on the right sixth, seventh and eighth ribs. On evaluation in the emergency room patient was found to have severe erythema and swelling in bilateral lower extremities she was diagnosed was acute bilateral l ower extremity cellulitis and was started on IV antibiotics. Patient was admitted to medical floor for further evaluation and treatment On 10/07/2021 patient was seen and examined on the medical floor she is alert and oriented 3 in no apparent distress there is no fever or chills no headache or dizziness no chest pain no shortness of breath no cough no nausea or vomiting no abdominal pain no diarrhea no blood in the stools no burning with urination no frequency or urgency and no hematuria, she is maintained on IV antibiotic for lower extremity cellulitis, will add physical therapy and occupational therapy and assess if patient needs rehab after this admission. 10/08/2021 patient is alert and oriented 3. Patient remains on IV Kefzol. Infectious disease services consulting awaiting ID input. Patient has remained afebrile. Current temp 98.2, heart rate 91, respiratory rate 17 and blood pressure 132/65. Patient denies chest pain or shortness breath. Patient denies nausea vomiting or diarrhea. Patient denies any urinary burning or frequency. Discharge planning in progress social work services consulted On 10/09/2021 patient is alert and oriented 3. Patient is resting in bed. Patient is sleepy but her nursing staff patient did present morphine for pain. Will decrease morphine frequency to every 6 hours. Tylenol for added. consulted for possible inpatient rehab. Patient remains on IV Kefzol. Infectious disease service is following. At this time patient denies chest pain or shortness breath. Patient denies nausea vomiting or diarrhea. Patient denies any urinary burning or frequency Objective - Vital Signs Vital signs: Vital Signs Temp 98.3 F 10/09/21 08:00 Pulse 95 10/09/21 08:00 Resp 18 10/09/21 08:00 BP 164/71 10/09/21 08:00 Pulse Ox 95 10/09/21 08:00 Intake & Output 10/08/21 10/09/21 10/09/21 18:59 06:59 18:59 Intake Total 925 Balance 925 Intake: Intake, IV Titration 925 Amount Sodium Chloride 0.9% 1, 825 000 ml @ 75 mls/hr IV . [id number] [facility] Rx#:[id number] ceFAZolin 1,000 mg In 100 Sodium Chloride 0.9% 50 ml @ 100 mls/hr IVPB Q8H [facility] Rx#:[id number] Other: Voiding Method Toilet Toilet Bedside Commode # Voids 1 # Bowel Movements 1 - Exam In general patient is alert and oriented x 3 in no distress HEENT head normocephalic and atraumatic Neck is supple no JVD no goiter no lymphadenopathy no carotid bruit Chest examination is clear to auscultation no crackles no wheezing Cardiac exam reveals regular heart sounds S1 and S2 no gallops no murmurs Abdomen is soft nontender no organomegaly with normal bowel sounds Extremity exam reveals bilateral lower extremity edema and erythema to the pretibial areas Neurological examination reveals no gross focal deficits - Labs CBC & Chem 7: 10/09/21 05:04 10/09/21 05:04 Labs: Abnormal Lab Results - Last 24 Hours (Table) 10/08/21 10/09/21 10/09/21 Range/Units 16:08 05:04 05:04 RBC 3.08 L (4.10-5.20) X 10*6/uL Hgb 9.8 L (12.0-15.0) g/dL Hct 32.0 L (37.2-46.3) % MCV 103.9 H (80.0-97.0) fL MCHC 30.6 L (32.0-37.0) g/dL Potassium 3.4 L (3.5-5.5) mmol/L Carbon Dioxide 28.3 H (20.0-27.5) mmol/L Glucose 160 H (70-110) mg/dL POC Glucose (mg/dL) 224 H (75-99) mg/dL Calcium 8.5 L (8.7-10.3) mg/dL Total Bilirubin <0.15 L (0.30-1.20) mg/dL Total Protein 5.7 L (6.2-8.2) g/dL Albumin 3.4 L (3.8-4.9) g/dL Albumin/Globulin Ratio 1.48 L (1.60-3.17) g/dL 10/09/21 Range/Units 06:47 RBC (4.10-5.20) X 10*6/uL Hgb (12.0-15.0) g/dL Hct (37.2-46.3) % MCV (80.0-97.0) fL MCHC (32.0-37.0) g/dL Potassium (3.5-5.5) mmol/L Carbon Dioxide (20.0-27.5) mmol/L Glucose (70-110) mg/dL POC Glucose (mg/dL) 148 H (75-99) mg/dL Calcium (8.7-10.3) mg/dL Total Bilirubin (0.30-1.20) mg/dL Total Protein (6.2-8.2) g/dL Albumin (3.8-4.9) g/dL Albumin/Globulin Ratio (1.60-3.17) g/dL Microbiology - Last 24 Hours (Table) 10/06/21 16:23 Blood Culture - Preliminary Blood No Growth after 48 hours 10/06/21 16:05 Blood Culture - Preliminary Blood No Growth after 48 hours Assessment and Plan Plan: Recent fall with evidence of minimally displaced rib fractures Bilateral lower extremity cellulitis, patient was started on IV cefazolin Generalized weakness, and physical debility Will consult physical therapy and occupational therapy Underlying history of hypertension Underlying history of [id number] diabetes mellitus Underlying history of hypothyroidism DVT prophylaxis Lovenox. GI prophylaxis At this time patient is admitted to medical floor She was started on IV Rocephin in the emergency room will continue Blood culture ordered Infectious disease service is consulted Dr. Quesada consulted for possible inpatient rehab Social work service is consulted for discharge planning Will follow closely
[2021-10-09 11:34] LABS: Glucose,Whole Blood 289 mg/dL (75-99)
[2021-10-09] MEDS: POTASSIUM CHLORIDE ER 20 MEQ TAB.ER PO SCH ×2 (12:17→13:22)
--- NOTE | 2021-10-09 16:11 | P.PN ---
Subjective Progress Note Date: 10/09/21 Principal diagnosis: Bilateral lower extremity cellulitis Patient is a 76-year-old female presenting to the hospital after the patient did have a slip and fall with evidence of right-sided rib fracture, patient also noticed to have a bilateral lower extremity swelling and redness left greater than right concerning for cellulitis. On today's evaluation that is 10/09/2021, the patient denies having any fever or any chills, the patient pain in the right side of the chest is slightly decreased intensity no nausea no vomiting no abdominal pain no diarrhea still having swelling and redness to the left leg more than the right leg but no worsening pain Objective - Vital Signs Vital signs: Vital Signs Temp 98.2 F 10/09/21 14:00 Pulse 79 10/09/21 14:00 Resp 16 10/09/21 14:00 BP 144/79 10/09/21 14:00 Pulse Ox 96 10/09/21 14:00 Intake & Output 10/08/21 10/09/21 10/09/21 18:59 06:59 18:59 Intake Total 925 Balance 925 Intake: Intake, IV Titration 925 Amount Sodium Chloride 0.9% 1, 825 000 ml @ 75 mls/hr IV . [id number] [facility] Rx#:[id number] ceFAZolin 1,000 mg In 100 Sodium Chloride 0.9% 50 ml @ 100 mls/hr IVPB Q8H [facility] Rx#:[id number] Other: Voiding Method Toilet Toilet Bedside Commode # Voids 1 # Bowel Movements 1 - Exam GENERAL DESCRIPTION: An elderly female lying in bed in no distress RESPIRATORY SYSTEM: Unlabored breathing , decreased breath sounds at bases HEART: S1 S2 regular rate and rhythm , ABDOMEN: Soft , no tenderness EXTREMITIES: Bilateral lower extremity erythema left greater than right - Labs CBC & Chem 7: 10/09/21 05:04 10/09/21 05:04 Labs: Abnormal Lab Results - Last 24 Hours (Table) 10/08/21 10/09/21 10/09/21 Range/Units 16:08 05:04 05:04 RBC 3.08 L (4.10-5.20) X 10*6/uL Hgb 9.8 L (12.0-15.0) g/dL Hct 32.0 L (37.2-46.3) % MCV 103.9 H (80.0-97.0) fL MCHC 30.6 L (32.0-37.0) g/dL Potassium 3.4 L (3.5-5.5) mmol/L Carbon Dioxide 28.3 H (20.0-27.5) mmol/L Glucose 160 H (70-110) mg/dL POC Glucose (mg/dL) 224 H (75-99) mg/dL Calcium 8.5 L (8.7-10.3) mg/dL Total Bilirubin <0.15 L (0.30-1.20) mg/dL Total Protein 5.7 L (6.2-8.2) g/dL Albumin 3.4 L (3.8-4.9) g/dL Albumin/Globulin Ratio 1.48 L (1.60-3.17) g/dL 10/09/21 10/09/21 Range/Units 06:47 11:33 RBC (4.10-5.20) X 10*6/uL Hgb (12.0-15.0) g/dL Hct (37.2-46.3) % MCV (80.0-97.0) fL MCHC (32.0-37.0) g/dL Potassium (3.5-5.5) mmol/L Carbon Dioxide (20.0-27.5) mmol/L Glucose (70-110) mg/dL POC Glucose (mg/dL) 148 H 289 H (75-99) mg/dL Calcium (8.7-10.3) mg/dL Total Bilirubin (0.30-1.20) mg/dL Total Protein (6.2-8.2) g/dL Albumin (3.8-4.9) g/dL Albumin/Globulin Ratio (1.60-3.17) g/dL Microbiology - Last 24 Hours (Table) 10/06/21 16:23 Blood Culture - Preliminary Blood No Growth after 48 hours 10/06/21 16:05 Blood Culture - Preliminary Blood No Growth after 48 hours Assessment and Plan (1) Bilateral lower leg cellulitis Current Visit: Yes Status: Acute Code(s): L03.116 - CELLULITIS OF LEFT LOWER LIMB; L03.115 - CELLULITIS OF RIGHT LOWER LIMB SNOMED Code(s): 380264460 Plan: Patient with bilateral lower extremity erythema left greater than the right concerning for cellulitis more likely from gram-positive skin latisha patient to continue with the cefazolin, marked the area of the redness and continue supportive care Time with Patient: Less than 30
[2021-10-09 16:38] LABS: Glucose,Whole Blood 155 mg/dL (75-99)
[2021-10-09] MEDS: ATORVASTATIN 10 MG TAB PO SCH (20:26)
[2021-10-09 20:30] LABS: Glucose,Whole Blood 133 mg/dL (75-99)
[2021-10-10] MEDS: SODIUM CHLORIDE 0.9% 1,000 ML IV SCH ×2 (00:26→12:53)
[2021-10-10] MEDS: LEVOTHYROXINE 125 MCG TAB PO SCH (05:34)
[2021-10-10 06:51] LABS: Glucose,Whole Blood 75 mg/dL (75-99)
[2021-10-10] MEDS: FUROSEMIDE 40 MG TAB PO SCH ×2 (07:18→22:46)
[2021-10-10] MEDS: MEMANTINE 10 MG TAB PO SCH ×2 (07:19→22:46)
[2021-10-10] MEDS: LOSARTAN 50 MG TAB PO SCH (07:19)
[2021-10-10] MEDS: PANTOPRAZOLE 40 MG TABLET PO SCH (07:19)
[2021-10-10] MEDS: INSULIN DETEMIR (LEVEMIR) 100 UNIT/ML SYR SQ SCH (07:19)
[2021-10-10] MEDS: FLUoxetine HCL 20 MG CAP PO SCH (07:19)
[2021-10-10] MEDS: ENOXAPARIN 40 MG/0.4 ML SYRINGE SQ SCH (07:20)
[2021-10-10] MEDS: buPROPion SR 100 MG TABLET.ER PO SCH ×2 (07:20→22:46)
[2021-10-10] MEDS: PIOGLITAZONE 45 MG TAB PO SCH (07:20)
[2021-10-10 09:06] LABS: Basophils # (A) 0.05 X 10*3/uL (0.00-0.10); Basophils % (A) 0.8 %; Eosinophils # (A) 0.34 X 10*3/uL (0.04-0.35); Eosinophils % (A) 5.3 %; HCT 32.6 % (37.2-46.3); HGB 9.8 g/dL (12.0-15.0); Immature Grans, Automated 0.3 %; Lymphocytes # (A) 1.61 X 10*3/uL (0.90-5.00); Lymphocytes % (A) 25.1 %; MCHC 30.1 g/dL (32.0-37.0); MCV 103.2 fL (80.0-97.0); Mean Platelet Volume 9.8 fL (9.5-12.2); Monocytes # (A) 0.63 X 10*3/uL (0.20-1.00); Monocytes % (A) 9.8 %; NRBC Per 100 WBC 0 /100 WBCS (0.0-0.0); Neutrophils # (A) 3.77 X 10*3/uL (1.80-7.70); Neutrophils % (A) 58.7 %; Platelet Count 264 X 10*3/uL (140-440); RBC 3.16 X 10*6/uL (4.10-5.20); RDW 13.4 % (11.5-14.5); WBC 6.42 X 10*3/uL (4.50-10.00)
[2021-10-10] MEDS: NON FORMULARY DRUG (Methenamine Hippurate [Methenamine Hippurate] 1 GM Tablet) PO SCH ×2 (09:38→22:47)
[2021-10-10] MEDS: NON FORMULARY DRUG (Mirabegron [Myrbetriq] 50 MG Tablet) PO SCH (09:38)
[2021-10-10 10:14] LABS: ALT 15 U/L (8-44); AST 20 U/L (13-35); African American GFR (CKD) 69.8 (60.0-200.0); Albumin 3.3 g/dL (3.8-4.9); Albumin/Globulin Ratio 1.46 (1.60-3.17); Alkaline Phosphatase 106 U/L (41-126); BUN/Creat Ratio 10.68 Ratio (12.00-20.00); Blood Urea Nitrogen 9.8 mg/dL (9.0-27.0); Calcium 8.8 mg/dL (8.7-10.3); Carbon Dioxide 29.4 mmol/L (20.0-27.5); Chloride 103 mmol/L (96-109); Globulin 2.3 g/dL (1.6-3.3); Glucose 63 mg/dL (70-110); Non-African American GFR(CKD) 60.2 (60.0-200.0); Potassium 3.4 mmol/L (3.5-5.5); Sodium 143 mmol/L (135-145); Total Bilirubin <0.15 mg/dL (0.30-1.20); Total Protein 5.5 g/dL (6.2-8.2)
[2021-10-10] MEDS ORDERED: Potassium Replacement Protocol 1 EACH MISC MISCELLANE PRN ×2 (10:57→11:10)
--- NOTE | 2021-10-10 11:29 | P.PN ---
Subjective Progress Note Date: 10/10/21 Shiloh Hampton, is a 76-year-old female who presented to [facility] emergency room with a chief complaint of fall at home with severe pain in the right flank area, patient stated that she tripped on the rug in the bathroom and hit the right side of her chest on the toilet, she denies any loss of consciousness, she denies any dizziness chest pain or shortness of breath prior to the fall. She was evaluated in the emergency room vital examination on presentation revealed a temperature of 97.8 pulse 85 respiration 18 blood pressure 151/71 pulse ox 97% on room air Laboratory data revealed a white blood count of 6.5 hemoglobin 11.9 platelet count 320 sodium 139 potassium 3.5 chloride 101 CO2 34 BUN 21 creatinine 0.9 to glucose level 148 Testing in the emergency room revealed x-ray of the right hip revealed no evidence of acute fracture, chest x-ray and rib x-ray revealed evidence of minimally displaced fracture in the right seventh rib, computed tomography scan of the abdomen revealed no acute abnormality in the abdomen and pelvis, but also revealed evidence of fractures on the right sixth, seventh and eighth ribs. On evaluation in the emergency room patient was found to have severe erythema and swelling in bilateral lower extremities she was diagnosed was acute bilateral l ower extremity cellulitis and was started on IV antibiotics. Patient was admitted to medical floor for further evaluation and treatment On 10/07/2021 patient was seen and examined on the medical floor she is alert and oriented 3 in no apparent distress there is no fever or chills no headache or dizziness no chest pain no shortness of breath no cough no nausea or vomiting no abdominal pain no diarrhea no blood in the stools no burning with urination no frequency or urgency and no hematuria, she is maintained on IV antibiotic for lower extremity cellulitis, will add physical therapy and occupational therapy and assess if patient needs rehab after this admission. 10/08/2021 patient is alert and oriented 3. Patient remains on IV Kefzol. Infectious disease services consulting awaiting ID input. Patient has remained afebrile. Current temp 98.2, heart rate 91, respiratory rate 17 and blood pressure 132/65. Patient denies chest pain or shortness breath. Patient denies nausea vomiting or diarrhea. Patient denies any urinary burning or frequency. Discharge planning in progress social work services consulted On 10/09/2021 patient is alert and oriented 3. Patient is resting in bed. Patient is sleepy but her nursing staff patient did present morphine for pain. Will decrease morphine frequency to every 6 hours. Tylenol for added. consulted for possible inpatient rehab. Patient remains on IV Kefzol. Infectious disease service is following. At this time patient denies chest pain or shortness breath. Patient denies nausea vomiting or diarrhea. Patient denies any urinary burning or frequency On 10/10/2021 patient was seen and examined on the medical floor she is alert and oriented 3 in no apparent distress she is still complaining of pain in the right ribs area, she still has significant pretibial erythema she is maintained on IV cefazolin and followed by infectious disease. Otherwise patient denies any complaints there is no fever or chills no headache or dizziness no chest pain no shortness of breath no cough no nausea or vomiting no abdominal pain no diarrhea no blood in the stools no burning with urination no frequency or urgency and no hematuria. At this time I am still awaiting input from physical therapy occupational therapy, and input from Dr. Madrid in regard to possible inpatient rehab admission. Objective - Vital Signs Vital signs: Vital Signs Temp 97.9 F 10/10/21 07:22 Pulse 86 10/10/21 07:22 Resp 16 10/10/21 07:22 BP 167/67 10/10/21 07:22 Pulse Ox 96 10/10/21 07:22 Intake & Output 10/09/21 10/10/21 10/10/21 18:59 06:59 18:59 Other: Voiding Method Bedside Commode Bedside Commode # Voids 3 3 # Bowel Movements 1 - Exam In general patient is alert and oriented x 3 in no distress HEENT head normocephalic and atraumatic Neck is supple no JVD no goiter no lymphadenopathy no carotid bruit Chest examination is clear to auscultation no crackles no wheezing Cardiac exam reveals regular heart sounds S1 and S2 no gallops no murmurs Abdomen is soft nontender no organomegaly with normal bowel sounds Extremity exam reveals bilateral lower extremity edema and erythema to the pre tibial areas Neurological examination reveals no gross focal deficits - Labs CBC & Chem 7: 10/10/21 04:20 10/10/21 04:20 Labs: Abnormal Lab Results - Last 24 Hours (Table) 10/09/21 10/09/21 10/09/21 Range/Units 11:33 16:36 20:28 RBC (4.10-5.20) X 10*6/uL Hgb (12.0-15.0) g/dL Hct (37.2-46.3) % MCV (80.0-97.0) fL MCHC (32.0-37.0) g/dL POC Glucose (mg/dL) 289 H 155 H 133 H (75-99) mg/dL 10/10/21 Range/Units 04:20 RBC 3.16 L (4.10-5.20) X 10*6/uL Hgb 9.8 L (12.0-15.0) g/dL Hct 32.6 L (37.2-46.3) % MCV 103.2 H (80.0-97.0) fL MCHC 30.1 L (32.0-37.0) g/dL POC Glucose (mg/dL) (75-99) mg/dL Microbiology - Last 24 Hours (Table) 10/06/21 16:23 Blood Culture - Preliminary Blood No Growth after 72 hours 10/06/21 16:05 Blood Culture - Preliminary Blood No Growth after 72 hours Assessment and Plan Plan: Recent fall with evidence of minimally displaced rib fractures Bilateral lower extremity cellulitis, patient was started on IV cefazolin Generalized weakness, and physical debility, we are awaiting physical therapy and occupational therapy input, is raising significant concern in regard to patient's safety at home. Underlying history of hypertension Underlying history of [id number] diabetes mellitus Underlying history of hypothyroidism DVT prophylaxis Lovenox. GI prophylaxis At this time patient is admitted to medical floor She was started on IV Rocephin in the emergency room will continue Blood culture ordered Infectious disease service is consulted Dr. Quesada consulted for possible inpatient rehab Social work service is consulted for discharge planning Will follow closely
[2021-10-10] MEDS: POTASSIUM CHLORIDE ER 20 MEQ TAB.ER PO SCH ×2 (11:53→12:53)
[2021-10-10 12:04] LABS: Glucose,Whole Blood 156 mg/dL (75-99)
[2021-10-10] MEDS: carvediloL 3.125 MG TAB PO SCH (15:24)
[2021-10-10 16:59] LABS: Glucose,Whole Blood 241 mg/dL (75-99)
[2021-10-10 21:03] LABS: Glucose,Whole Blood 162 mg/dL (75-99)
--- NOTE | 2021-10-10 22:28 | P.PN ---
Subjective Progress Note Date: 10/10/21 Principal diagnosis: Bilateral lower extremity cellulitis Patient is a 76-year-old female presenting to the hospital after the patient did have a slip and fall with evidence of right-sided rib fracture, patient also noticed to have a bilateral lower extremity swelling and redness left greater than right concerning for cellulitis. On today's evaluation that is 10/10/2021, the patient remains to be afebrile, the patient pain in the right side of the chest has decreased in intensity, the patient denies nausea no vomiting no abdominal pain no diarrhea still having swe lling and redness to the left leg more than the right leg but no worsening pain Objective - Vital Signs Vital signs: Vital Signs Temp 98.3 F 10/10/21 14:00 Pulse 90 10/10/21 14:00 Resp 16 10/10/21 14:00 BP 127/61 10/10/21 14:00 Pulse Ox 95 10/10/21 14:00 Intake & Output 10/10/21 10/10/21 10/11/21 06:59 18:59 06:59 Other: Voiding Method Bedside Commode # Voids 3 # Bowel Movements 1 - Exam GENERAL DESCRIPTION: An elderly female lying in bed in no distress RESPIRATORY SYSTEM: Unlabored breathing , decreased breath sounds at bases HEART: S1 S2 regular rate and rhythm , ABDOMEN: Soft , no tenderness EXTREMITIES: Bilateral lower extremity erythema left greater than right - Labs CBC & Chem 7: 10/10/21 04:20 10/10/21 04:20 Labs: Abnormal Lab Results - Last 24 Hours (Table) 10/10/21 10/10/21 10/10/21 Range/Units 04:20 04:20 12:02 RBC 3.16 L (4.10-5.20) X 10*6/uL Hgb 9.8 L (12.0-15.0) g/dL Hct 32.6 L (37.2-46.3) % MCV 103.2 H (80.0-97.0) fL MCHC 30.1 L (32.0-37.0) g/dL Potassium 3.4 L (3.5-5.5) mmol/L Carbon Dioxide 29.4 H (20.0-27.5) mmol/L BUN/Creatinine Ratio 10.68 L (12.00-20.00) Ratio Glucose 63 L (70-110) mg/dL POC Glucose (mg/dL) 156 H (75-99) mg/dL Total Bilirubin <0.15 L (0.30-1.20) mg/dL Total Protein 5.5 L (6.2-8.2) g/dL Albumin 3.3 L (3.8-4.9) g/dL Albumin/Globulin Ratio 1.46 L (1.60-3.17) g/dL 10/10/21 Range/Units 16:58 RBC (4.10-5.20) X 10*6/uL Hgb (12.0-15.0) g/dL Hct (37.2-46.3) % MCV (80.0-97.0) fL MCHC (32.0-37.0) g/dL Potassium (3.5-5.5) mmol/L Carbon Dioxide (20.0-27.5) mmol/L BUN/Creatinine Ratio (12.00-20.00) Ratio Glucose (70-110) mg/dL POC Glucose (mg/dL) 241 H (75-99) mg/dL Total Bilirubin (0.30-1.20) mg/dL Total Protein (6.2-8.2) g/dL Albumin (3.8-4.9) g/dL Albumin/Globulin Ratio (1.60-3.17) g/dL Microbiology - Last 24 Hours (Table) 10/06/21 16:23 Blood Culture - Preliminary Blood No Growth after 96 hours 10/06/21 16:05 Blood Culture - Preliminary Blood No Growth after 96 hours Assessment and Plan (1) Bilateral lower leg cellulitis Current Visit: Yes Status: Acute Code(s): L03.116 - CELLULITIS OF LEFT LOWER LIMB; L03.115 - CELLULITIS OF RIGHT LOWER LIMB SNOMED Code(s): 855053754 Plan: Patient with bilateral lower extremity erythema left greater than the right concerning for cellulitis more likely from gram-positive skin latisha patient seemed to have shown clinical improvement with cefazolin, to continue while inp atient finishing therapy with oral Keflex Time with Patient: Less than 30
[2021-10-10] MEDS: ATORVASTATIN 10 MG TAB PO SCH (22:46)
[2021-10-11] MEDS: SODIUM CHLORIDE 0.9% 1,000 ML IV SCH (04:59)
--- NOTE | 2021-10-11 05:32 | P.CONS ---
History of Present Illness - Chief Complaint Walking difficulty - History of Present Illness I had the opportunity to see patient for inpatient rehab consultation with regard to walking difficulty. She was admitted to [facility] October 06 with history of fall and right chest pain. Admitted to Dr. jesu nunez. Seen in consultation by Dr. Lantigua for chills and cellulitis. Computed tomography scan of abdomen and pelvis demonstrates left ovarian cyst and ascites. Also cardiomegaly, osteopenia and fractures right ribs 6 through rate and healing fracture left rib 7. Rib x-rays consistent with subtle right 7 fracture. Hip and pelvic x-ray demonstrates screws right SI joint and postoperative changes lumbar spine. Has started therapy. PT reports two-person maximal assistance bed mobility and transfer and supervision for gait 55 feet with roller walker. OT reports minimal assistance for upper and lower dressing and bathing, toileting and functional mobility. Previous functional history as elicited from patient: 76-year-old's (said she was 65) left-handed white female who is lives and 2 floor home with . Both retired. Patient independent with cooking, laundry, driving but can do these. Patient independent with standing shower, gait without device. PCP Dr. Quesada. Denies tobacco or alcohol. Review of Systems Review of systems: ENT: Denies sneezes or discharge. Eyes: Denies discharge or photophobia. Cardiac: Denies chest pain or palpitation. Pulmonary: Mild right chest wall discomfort. Breast: Denies discharge or lumps. Gastrointestinal: Denies nausea, emesis, constipation, diarrhea. Genitourinary: Denies discharge or frequency. Musculoskeletal: Denies muscle or bone aches. Neurologic: Denies motor or sensory change. Endocrine: Denies shakes or sweats. Oncology: Denies cancers. Dermatologic: Denies rash, itching, pruritus. ALLERGY/immunology: Denies sneezes, rashes. Past Medical History Past Medical History: Diabetes Mellitus, Hypertension, Thyroid Disorder Additional Past Medical History / Comment(s): URINARY INCONTINENCE, "cognitive disorder" History of Any Multi-Drug Resistant Organisms: None Reported Past Surgical History: Back Surgery, Tubal Ligation Additional Past Surgical History / Comment(s): Tubal ligation Past Anesthesia/Blood Transfusion Reactions: No Reported Reaction Past Psychological History: No Psychological Hx Reported Smoking Status: Never smoker Past Alcohol Use History: None Reported Additional Past Alcohol Use History / Comment(s): SMOKED FOR 4 YRS A TEEN, 1PPD Past Drug Use History: None Reported - Past Family History Father Family Medical History: Cancer Medications and Allergies Home Medications Medication Instructions Recorded Confirmed Type Insulin Glargine,Hum.rec.anlog 35 unit SQ DAILY 06/21/18 10/06/21 History [Lantus Solostar Pen] Pioglitazone [Actos] 45 mg PO DAILY 06/21/18 10/06/21 History Simvastatin [Zocor] 20 mg PO HS 06/21/18 10/06/21 History FLUoxetine HCL [PROzac] 40 mg PO DAILY 02/20/20 10/06/21 History Memantine [Namenda] 10 mg PO BID 02/20/20 10/06/21 History buPROPion HCL [Wellbutrin SR] 200 mg PO BID 02/20/20 10/06/21 History glipiZIDE [Glucotrol] 10 mg PO BID 02/20/20 10/06/21 History Furosemide [Lasix] 40 mg PO BID 06/12/21 10/06/21 History Levothyroxine Sodium [Synthroid] 125 mcg PO DAILY 06/12/21 10/06/21 History Losartan Potassium [Cozaar] 100 mg PO DAILY 06/12/21 10/06/21 History Mirabegron [Myrbetriq] 50 mg PO DAILY 06/12/21 10/06/21 History Cranberry Fruit Concentrate [Azo 250 mg PO DAILY 10/06/21 10/06/21 History Cranberry] Methenamine Hippurate 1 gm PO BID 10/06/21 10/06/21 History Allergies Allergy/AdvReac Type Severity Reaction Status Date / Time latex Allergy Rash/Hives Verified 10/06/21 12:42 metformin Allergy Rash/Hives Verified 10/06/21 12:42 Sulfa (Sulfonamide Allergy Anaphylaxis Verified 10/06/21 12:42 Antibiotics) Physical Exam Vitals: Vital Signs Temp Pulse Resp BP Pulse Ox 10/11/21 02:11 98.0 F 84 18 167/67 96 10/10/21 20:00 98.4 F 80 16 168/76 97 10/10/21 14:00 98.3 F 90 16 127/61 95 10/10/21 07:22 97.9 F 86 16 167/67 96 Skin: Atrophic, intact. General: Overweight build and comfortable appearance. Head: Normocephalic, atraumatic. Eyes: Symmetric. Pupils equal round. Ears: Symmetric. Hearing within normal limits. Mouth: Clear. Neck: Supple. Carotid without bruit. Cardiac: Regular rate and rhythm. Lungs: Clear anteriorly and posteriorly. Abdomen: Soft active nontender. Overweight. Extremities: Normal tone. Neurological: Mental status: Alert, cooperative, pleasant. Cranial nerves: Symmetric facial tone and trapezius. Motor: Normal strength and isolation all 4 limbs. Sensation: Intact throughout. DTRs: Symmetric and equal throughout. Mobility: Sits with minimal assistance. Results CBC & Chem 7: 10/10/21 04:20 10/10/21 04:20 Labs: Abnormal Lab Results - Last 24 Hours (Table) 10/10/21 10/10/21 10/10/21 Range/Units 04:20 04:20 12:02 RBC 3.16 L (4.10-5.20) X 10*6/uL Hgb 9.8 L (12.0-15.0) g/dL Hct 32.6 L (37.2-46.3) % MCV 103.2 H (80.0-97.0) fL MCHC 30.1 L (32.0-37.0) g/dL Potassium 3.4 L (3.5-5.5) mmol/L Carbon Dioxide 29.4 H (20.0-27.5) mmol/L BUN/Creatinine Ratio 10.68 L (12.00-20.00) Ratio Glucose 63 L (70-110) mg/dL POC Glucose (mg/dL) 156 H (75-99) mg/dL Total Bilirubin <0.15 L (0.30-1.20) mg/dL Total Protein 5.5 L (6.2-8.2) g/dL Albumin 3.3 L (3.8-4.9) g/dL Albumin/Globulin Ratio 1.46 L (1.60-3.17) g/dL 10/10/21 10/10/21 Range/Units 16:58 21:01 RBC (4.10-5.20) X 10*6/uL Hgb (12.0-15.0) g/dL Hct (37.2-46.3) % MCV (80.0-97.0) fL MCHC (32.0-37.0) g/dL Potassium (3.5-5.5) mmol/L Carbon Dioxide (20.0-27.5) mmol/L BUN/Creatinine Ratio (12.00-20.00) Ratio Glucose (70-110) mg/dL POC Glucose (mg/dL) 241 H 162 H (75-99) mg/dL Total Bilirubin (0.30-1.20) mg/dL Total Protein (6.2-8.2) g/dL Albumin (3.8-4.9) g/dL Albumin/Globulin Ratio (1.60-3.17) g/dL Microbiology - Last 24 Hours (Table) 10/06/21 16:23 Blood Culture - Preliminary Blood No Growth after 96 hours 10/06/21 16:05 Blood Culture - Preliminary Blood No Growth after 96 hours Assessment and Plan (1) Bilateral lower leg cellulitis Current Visit: Yes Status: Acute Code(s): L03.116 - CELLULITIS OF LEFT LOWER LIMB; L03.115 - CELLULITIS OF RIGHT LOWER LIMB SNOMED Code(s): 072610383 (2) Multiple rib fractures Current Visit: Yes Status: Acute Code(s): S22.49XA - MULTIPLE FRACTURES OF RIBS, UNSP SIDE, INIT FOR CLOS FX SNOMED Code(s): 1602714 (3) Acute encephalopathy Current Visit: No Status: Acute Code(s): G93.40 - ENCEPHALOPATHY, UNSPECIFIED SNOMED Code(s): 95070578 (4) Concussion Current Visit: No Status: Acute Code(s): S06.0X9A - CONCUSSION W LOSS OF CONSCIOUSNESS OF UNSP DURATION, INIT SNOMED Code(s): 179310793 (5) Multiple falls Current Visit: No Status: Acute Code(s): R29.6 - REPEATED FALLS SNOMED Code(s): 870142153 Plan: Comments and plan: Patient will require updated therapy notes. Patient's perspective is that she is up in room including bathroom. This is not carlos borated by chart notes. We'll follow for therapy today. Must also determine goals for patient to return home. At this time consideration of inpatient rehab appears to be appropriate. One problem would be insurance criteria with regard to diagnosis.
[2021-10-11] MEDS: LEVOTHYROXINE 125 MCG TAB PO SCH (05:44)
[2021-10-11 07:02] LABS: Glucose,Whole Blood 86 mg/dL (75-99)
[2021-10-11] MEDS: buPROPion SR 100 MG TABLET.ER PO SCH (09:00)
[2021-10-11 09:08] VITALS: BP 169/92; PULSE 89; RESP 16; TEMP 98.6
[2021-10-11 10:10] LABS: ALT 18 U/L (8-44); AST 24 U/L (13-35); Albumin 3.4 g/dL (3.8-4.9); Albumin/Globulin Ratio 1.48 (1.60-3.17); Alkaline Phosphatase 116 U/L (41-126); BUN/Creat Ratio 9.89 Ratio (12.00-20.00); Blood Urea Nitrogen 8.9 mg/dL (9.0-27.0); Calcium 9.3 mg/dL (8.7-10.3); Carbon Dioxide 27.5 mmol/L (20.0-27.5); Chloride 104 mmol/L (96-109); Globulin 2.3 g/dL (1.6-3.3); Glucose 69 mg/dL (70-110); Non-African American GFR(CKD) 61.2 (60.0-200.0); Potassium 3.7 mmol/L (3.5-5.5); Sodium 143 mmol/L (135-145); Total Bilirubin <0.15 mg/dL (0.30-1.20); Total Protein 5.7 g/dL (6.2-8.2)
[2021-10-11] MEDS: ENOXAPARIN 40 MG/0.4 ML SYRINGE SQ SCH (10:17)
[2021-10-11] MEDS: LOSARTAN 50 MG TAB PO SCH (10:18)
[2021-10-11] MEDS: PANTOPRAZOLE 40 MG TABLET PO SCH (10:18)
[2021-10-11] MEDS: FLUoxetine HCL 20 MG CAP PO SCH (10:18)
[2021-10-11] MEDS: carvediloL 3.125 MG TAB PO SCH (10:18)
[2021-10-11] MEDS: MEMANTINE 10 MG TAB PO SCH (10:18)
[2021-10-11] MEDS: FUROSEMIDE 40 MG TAB PO SCH (10:18)
[2021-10-11] MEDS: INSULIN DETEMIR (LEVEMIR) 100 UNIT/ML SYR SQ SCH (11:06)
[2021-10-11] MEDS: NON FORMULARY DRUG (Mirabegron [Myrbetriq] 50 MG Tablet) PO SCH (11:06)
[2021-10-11] MEDS: NON FORMULARY DRUG (Methenamine Hippurate [Methenamine Hippurate] 1 GM Tablet) PO SCH (11:06)
[2021-10-11 11:16] LABS: Basophils # (A) 0.05 X 10*3/uL (0.00-0.10); Basophils % (A) 0.7 %; Eosinophils # (A) 0.29 X 10*3/uL (0.04-0.35); Eosinophils % (A) 4.1 %; HCT 33.6 % (37.2-46.3); HGB 10.1 g/dL (12.0-15.0); Immature Grans, Automated 0.4 %; Lymphocytes % (A) 18.4 %; MCH 31.4 pg (27.0-32.0); MCHC 30.1 g/dL (32.0-37.0); MCV 104.3 fL (80.0-97.0); Mean Platelet Volume 9.9 fL (9.5-12.2); Monocytes # (A) 0.73 X 10*3/uL (0.20-1.00); Monocytes % (A) 10.3 %; NRBC Per 100 WBC 0 /100 WBCS (0.0-0.0); Neutrophils # (A) 4.67 X 10*3/uL (1.80-7.70); Neutrophils % (A) 66.1 %; Platelet Count 264 X 10*3/uL (140-440); RBC 3.22 X 10*6/uL (4.10-5.20); RDW 13.4 % (11.5-14.5); WBC 7.07 X 10*3/uL (4.50-10.00)
[2021-10-11 11:52] LABS: Glucose,Whole Blood 221 mg/dL (75-99)
[2021-10-11] MEDS: PIOGLITAZONE 45 MG TAB PO SCH (13:22)
--- NOTE | 2021-10-11 13:27 | P.DS ---
Providers Date of admission: 10/08/21 14:14 Expected date of discharge: 10/11/21 Attending physician: Quinton Rubio Consults: 10/07/21 18:19 Consult Physician Routine Consulting Provider: Jaron Lantigua Consult Reason/Comments: Lower extremity cellulitis Do you want consulting provider notified?: Yes 10/09/21 11:30 Consult Physician Routine Consulting Provider: Segundo Winn Consult Reason/Comments: weakness Do you want consulting provider notified?: Yes Primary care physician: Tina Quesada Hospital Course: Diagnosis on discharge: Recent fall with evidence of minimally displaced rib fractures Bilateral lower extremity cellulitis, patient was started on IV cefazolin Generalized weakness, and physical debility, we are awaiting physical therapy and occupational therapy input, is raising significant concern in regard to patient's safety at home. Underlying history of hypertension Underlying history of [id number] diabetes mellitus Underlying history of hypothyroidism Hospital course: Shiloh Hampton, is a 76-year-old female who presented to [facility] emergency room with a chief complaint of fall at home with severe pain in the right flank area, patient stated that she tripped on the rug in the bathroom and hit the right side of her chest on the toilet, she denies any loss of consciousness, she denies any dizziness chest pain or shortness of breath prior to the fall. She was evaluated in the emergency room vital examination on presentation revealed a temperature of 97.8 pulse 85 respiration 18 blood pressure 151/71 pulse ox 97% on room air Laboratory data revealed a white blood count of 6.5 hemoglobin 11.9 platelet count 320 sodium 139 potassium 3.5 chloride 101 CO2 34 BUN 21 creatinine 0.9 to glucose level 148 Testing in the emergency room revealed x-ray of the right hip revealed no evidence of acute fracture, chest x-ray and rib x-ray revealed evidence of minimally displaced fracture in the right seventh rib, computed tomography scan of the abdomen revealed no acute abnormality in the abdomen and pelvis, but also revealed evidence of fractures on the right sixth, seventh and eighth ribs. On evaluation in the emergency room patient was found to have severe erythema and swelling in bilateral lower extremities she was diagnosed was acute bilateral lower extremity cellulitis and was started on IV antibiotics. Patient was admitted to medical floor for further evaluation and treatment On 10/07/2021 patient was seen and examined on the medical floor she is alert and oriented 3 in no apparent distress there is no fever or chills no headache or dizziness no chest pain no shortness of breath no cough no nausea or vomiting no abdominal pain no diarrhea no blood in the stools no burning with urination no frequency or urgency and no hematuria, she is maintained on IV antibiotic for lower extremity cellulitis, will add physical therapy and occupational therapy and assess if patient needs rehab after this admission. 10/08/2021 patient is alert and oriented 3. Patient remains on IV Kefzol. Infectious disease services consulting awaiting ID input. Patient has remained afebrile. Current temp 98.2, heart rate 91, respiratory rate 17 and blood pressure 132/65. Patient denies chest pain or shortness breath. Patient denies nausea vomiting or diarrhea. Patient denies any urinary burning or frequency. Discharge planning in progress social work services consulted On 10/09/2021 patient is alert and oriented 3. Patient is resting in bed. Patient is sleepy but her nursing staff patient did present morphine for pain. Will decrease morphine frequency to every 6 hours. Tylenol for added. consulted for possible inpatient rehab. Patient remains on IV Kefzol. Infectious disease service is following. At this time patient denies chest pain or shortness breath. Patient denies nausea vomiting or diarrhea. Patient denies any urinary burning or frequency On 10/10/2021 patient was seen and examined on the medical floor she is alert and oriented 3 in no apparent distress she is still complaining of pain in the right ribs area, she still has significant pretibial erythema she is maintained on IV cefazolin and followed by infectious disease. Otherwise patient denies any complaints there is no fever or chills no headache or dizziness no chest pain no shortness of breath no cough no nausea or vomiting no abdominal pain no diarrhea no blood in the stools no burning with urination no frequency or urgency and no hematuria. At this time I am still awaiting input from physical therapy occupational therapy, and input from Dr. Madrid in regard to possible inpatient rehab admission. On 10/11/2021 patient was seen and examined on the medical floor she is alert and oriented 3 in no apparent distress there is no fever or chills no headache or dizziness no chest pain no shortness of breath no cough no nausea or vomiting no abdominal pain no diarrhea and no urinary symptoms changes feeling better and wishes to go home she is able to ambulate in the room without difficulty at this time she will be switched to oral antibiotic Keflex and will be discharged to home. Patient Condition at Discharge: Serious Plan - Discharge Summary Discharge Rx Participant: No New Discharge Prescriptions: New Cephalexin [Keflex] 500 mg PO Q8HR 10 Days #30 cap carvediloL [Coreg] 6.25 mg PO BID 30 Days #60 tablet Continue Pioglitazone [Actos] 45 mg PO DAILY Simvastatin [Zocor] 20 mg PO HS Insulin Glargine,Hum.rec.anlog [Lantus Solostar Pen] 35 unit SQ DAILY buPROPion HCL [Wellbutrin SR] 200 mg PO BID FLUoxetine HCL [PROzac] 40 mg PO DAILY glipiZIDE [Glucotrol] 10 mg PO BID Memantine [Namenda] 10 mg PO BID Mirabegron [Myrbetriq] 50 mg PO DAILY Losartan Potassium [Cozaar] 100 mg PO DAILY Levothyroxine Sodium [Synthroid] 125 mcg PO DAILY Furosemide [Lasix] 40 mg PO BID Cranberry Fruit Concentrate [Azo Cranberry] 250 mg PO DAILY Methenamine Hippurate 1 gm PO BID Discharge Medication List Insulin Glargine,Hum.rec.anlog [Lantus Solostar Pen] 35 unit SQ DAILY 06/21/18 [History] Pioglitazone [Actos] 45 mg PO DAILY 06/21/18 [History] Simvastatin [Zocor] 20 mg PO HS 06/21/18 [History] FLUoxetine HCL [PROzac] 40 mg PO DAILY 02/20/20 [History] Memantine [Namenda] 10 mg PO BID 02/20/20 [History] buPROPion HCL [Wellbutrin SR] 200 mg PO BID 02/20/20 [History] glipiZIDE [Glucotrol] 10 mg PO BID 02/20/20 [History] Furosemide [Lasix] 40 mg PO BID 06/12/21 [History] Levothyroxine Sodium [Synthroid] 125 mcg PO DAILY 06/12/21 [History] Losartan Potassium [Cozaar] 100 mg PO DAILY 06/12/21 [History] Mirabegron [Myrbetriq] 50 mg PO DAILY 06/12/21 [History] Cranberry Fruit Concentrate [Azo Cranberry] 250 mg PO DAILY 10/06/21 [History] Methenamine Hippurate 1 gm PO BID 10/06/21 [History] Cephalexin [Keflex] 500 mg PO Q8HR 10 Days #30 cap 10/11/21 [Rx] carvediloL [Coreg] 6.25 mg PO BID 30 Days #60 tablet 10/11/21 [Rx] Follow up Appointment(s)/Referral(s): Tina Quesada MD [Primary Care Provider] - 1-2 days [facility], [NON-STAFF] - As Needed ([facility] will call you to schedule your in home nursing and physical therapy visits. )
== END 2021-10-11 15:17 | disposition home health service (06) | DRG 603 ==
LOC: EC 09:50 → 6NMEDSUR 16:37 → 5NMEDONC 10-07 05:09 → 4SSUR 10-07 16:02 → OBSVTOIN 10-08 14:14
PROVIDERS: ADMIT Internal Medicine; ATTEND Internal Medicine
DX: L03.115 Cellulitis of right lower limb (principal); S22.43XA Multiple fractures of ribs, bilateral, initial encounter for closed fracture; G93.40 Encephalopathy, unspecified; R18.8 Other ascites; S06.0X9A Concussion with loss of consciousness of unspecified duration, initial encounter; B95.5 Unspecified streptococcus as the cause of diseases classified elsewhere; Z20.822 Contact with and (suspected) exposure to COVID-19; L03.116 Cellulitis of left lower limb; I10 Essential (primary) hypertension; E03.9 Hypothyroidism, unspecified; E11.9 Type 2 diabetes mellitus without complications; R29.6 Repeated falls; W01.0XXA Fall on same level from slipping, tripping and stumbling without subsequent striking against object, initial encounter; Z91.040 Latex allergy status; Z88.8 Allergy status to other drugs, medicaments and biological substances; Z88.2 Allergy status to sulfonamides; M85.88 Other specified disorders of bone density and structure, other site; Z98.51 Tubal ligation status; N83.202 Unspecified ovarian cyst, left side; Y92.002 Bathroom of unspecified non-institutional (private) residence as the place of occurrence of the external cause; Z79.890 Hormone replacement therapy; Z79.899 Other long term (current) drug therapy
CPT/HCPCS: 36415; 71111; 73502; 74177; 80053; 83605; 84443; 85025; 87040; 87635; 96361; 96374; 99285

== ENCOUNTER 2021-10-20 11:35 | Emergency (ER) | payer MEDICARE ==
[2021-10-20 11:40] VITALS: RESP 18; TEMP 97.6
--- NOTE | 2021-10-20 12:08 | XR ---
EXAMINATION TYPE: XR wrist complete LT DATE OF EXAM: 10/20/2021 CLINICAL HISTORY: pain TECHNIQUE: Frontal, lateral and oblique images of the left wrist are obtained. COMPARISON: 08/08/2021 FINDINGS: There is vague lucency through the distal radius for which I cannot exclude nondisplaced fr acture. There is also lucency at the base of the ulnar styloid process which may reflect additional f racture. There is evidence of soft tissue swelling. Degenerative narrowing of the intercarpal joint s paces. IMPRESSION: Suspect nondisplaced distal radial and ulnar styloid fractures.
--- NOTE | 2021-10-20 13:06 | ED ---
Upper Extremity HPI - General Chief Complaint: Extremity Injury, Upper Stated Complaint: Fall Time Seen by Provider: 10/20/21 12:55 Source: patient, RN notes reviewed Mode of arrival: wheelchair Limitations: no limitations - History of Present Illness Initial Comments: 76-year-old female presents emergency Department chief complaint of fall, left arm pain. Patient states that she tripped and underlying lung backwards injuring her left wrist. Patient states that she did bump her head is a mild headache no neck pain no other extremity injuries. Patient is not requiring any pain meds at this time states that he took some vitamins prior arrival. No paresthesias no blurred vision no other associated complaints. - Related Data Home Medications Medication Instructions Recorded Confirmed Insulin Glargine,Hum.rec.anlog 35 unit SQ DAILY 06/21/18 10/20/21 [Lantus Solostar Pen] Pioglitazone [Actos] 45 mg PO DAILY 06/21/18 10/20/21 Simvastatin [Zocor] 20 mg PO HS 06/21/18 10/20/21 FLUoxetine HCL [PROzac] 40 mg PO DAILY 02/20/20 10/20/21 Memantine [Namenda] 10 mg PO BID 02/20/20 10/20/21 buPROPion HCL [Wellbutrin SR] 200 mg PO BID 02/20/20 10/20/21 glipiZIDE [Glucotrol] 10 mg PO BID 02/20/20 10/20/21 Furosemide [Lasix] 40 mg PO BID 06/12/21 10/20/21 Levothyroxine Sodium [Synthroid] 125 mcg PO DAILY 06/12/21 10/20/21 Losartan Potassium [Cozaar] 100 mg PO DAILY 06/12/21 10/20/21 Mirabegron [Myrbetriq] 50 mg PO DAILY 06/12/21 10/20/21 Cranberry Fruit Concentrate [Azo 250 mg PO DAILY 10/06/21 10/20/21 Cranberry] Methenamine Hippurate 1 gm PO BID 10/06/21 10/20/21 Cephalexin [Keflex] 500 mg PO Q8H 10/20/21 10/20/21 Previous Rx's Medication Instructions Recorded carvediloL [Coreg] 6.25 mg PO BID 30 Days #60 tablet 10/11/21 Allergies Allergy/AdvReac Type Severity Reaction Status Date / Time latex Allergy Rash/Hives Verified 10/20/21 13:43 metformin Allergy Rash/Hives Verified 10/20/21 13:43 Sulfa (Sulfonamide Allergy Anaphylaxis Verified 10/20/21 13:43 Antibiotics) Review of Systems ROS Statement: Those systems with pertinent positive or pertinent negative responses have been documented in the HPI. ROS Other: All systems not noted in ROS Statement are negative. Past Medical History Past Medical History: Diabetes Mellitus, Hypertension, Thyroid Disorder Additional Past Medical History / Comment(s): URINARY INCONTINENCE, "cognitive disorder" History of Any Multi-Drug Resistant Organisms: None Reported Past Surgical History: Back Surgery, Tubal Ligation Additional Past Surgical History / Comment(s): Tubal ligation Past Anesthesia/Blood Transfusion Reactions: No Reported Reaction Past Psychological History: No Psychological Hx Reported Smoking Status: Never smoker Past Alcohol Use History: None Reported Past Drug Use History: None Reported - Past Family History Father Family Medical History: Cancer General Exam Limitations: no limitations General appearance: alert, in no apparent distress Head exam: Present: atraumatic, normocephalic, normal inspection Eye exam: Present: normal appearance, PERRL, EOMI. Absent: scleral icterus, conjunctival injection, periorbital swelling ENT exam: Present: normal exam, normal oropharynx, mucous membranes moist Neck exam: Present: normal inspection, full ROM. Absent: tenderness, meningismus, lymphadenopathy Respiratory exam: Present: normal lung sounds bilaterally. Absent: respiratory distress, wheezes, rales, rhonchi, stridor Cardiovascular Exam: Present: regular rate, normal rhythm, normal heart sounds. Absent: systolic murmur, diastolic murmur, rubs, gallop, clicks GI/Abdominal exam: Present: soft, normal bowel sounds. Absent: distended, tenderness, guarding, rebound, rigid Extremities exam: Present: other (Distal left forearm/wrist there is tenderness, swelling neurovascular intact there rings noted on the hand. The forearm tenderness remaining extremity exam within normal limits) Back exam: Present: full ROM. Absent: tenderness Neurological exam: Present: alert, oriented X3, CN II-XII intact, reflexes normal. Absent: motor sensory deficit Course Vital Signs 10/20/21 11:36 Temperature 97.6 F Pulse Rate 97 Respiratory 18 Rate Blood Pressure 154/75 O2 Sat by Pulse 99 Oximetry - Reevaluation(s) Reevaluation #1: 03/09/22 13:05 Upon initial evaluation patient declines pain meds, patient advised to take rings also they're very tight states they will not come off. We did discuss possible cutting off of rings. Procedures - Orthopedic Splinting/Casting Injury #1 Side: left Upper Extremity Injury Location: short arm, wrist Upper Extremity Immobilizer: volar splint, synthetic pre-padded splint Medical Decision Making - Medical Decision Making Patient was splinted, patient has a distal radius ulnar fracture CT her brain and C-spine unremarkable patient will be discharged stable condition. Disposition Clinical Impression: Closed fracture of left distal radius and ulna Disposition: HOME SELF-CARE Condition: Stable Instructions (If sedation given, give patient instructions): Wrist Fracture in Adults (ED) Additional Instructions: Please return to the Emergency Department if symptoms worsen or any other concerns. Is patient prescribed a controlled substance at d/c from ED?: No Referrals: Tina Quesada MD [Primary Care Provider] - 1-2 days Shay Szymanski DO [Doctor of Osteopathic Medicine] - 1-2 days Time of Disposition: 14:13
[2021-10-20] MEDS ORDERED: KETOROLAC 15 MG/ML 1 ML VIAL IVP STA (13:30)
--- NOTE | 2021-10-20 13:58 | CT ---
EXAMINATION TYPE: CT brain miguel edwards con DATE OF EXAM: 10/20/2021 COMPARISON: 06/12/2021 HISTORY: Fell last night CT DLP: 1513.[address] of the brain was performed. The ventricles, basal cisterns and sulci overlying the cerebral convexities demonstrate mild enlargem ent. There is no evidence for intracranial hemorrhage or sulcal effacement. There is decreased attenuatio n about the periventricular white matter and deep white matter of both cerebral hemispheres, compatib le with chronic small vessel ischemia. No mass effects are seen. If symptoms persist consider MRI. Osseous calvarium is intact. IMPRESSION: 1. Age related atrophic and chronic small vessel ischemic change without acute intracranial process seen at this time. CT Cervical Spine: Unenhanced CT of the cervical spine was performed with bone and soft tissue window settings submitted . Coronal and sagittal reconstruction is obtained. There is normal alignment and prevertebral soft tissues. No evidence for acute cervical fracture . Scattered degenerative disc disease and spondylosis. Biapical scarring. IMPRESSION: 1. No evidence for acute fracture or subluxation of the cervical spine.
[2021-10-20] MEDS ORDERED: IBUPROFEN 600 MG TAB PO STA (13:59)
[2021-10-20 14:34] VITALS: BP 148/76; PULSE 92
== END 2021-10-20 14:25 | disposition home or self-care (01) ==
LOC: EC 11:35
DX: S52.502A Unspecified fracture of the lower end of left radius, initial encounter for closed fracture (principal); S52.602A Unspecified fracture of lower end of left ulna, initial encounter for closed fracture; E11.9 Type 2 diabetes mellitus without complications; I10 Essential (primary) hypertension; Z79.4 Long term (current) use of insulin; Z79.84 Long term (current) use of oral hypoglycemic drugs; Z79.890 Hormone replacement therapy; Z79.899 Other long term (current) drug therapy; W01.0XXA Fall on same level from slipping, tripping and stumbling without subsequent striking against object, initial encounter
CPT/HCPCS: 29125; 70450; 72125; 99284

== ENCOUNTER 2021-10-22 16:08 | Emergency (ER) | payer MEDICARE ==
[2021-10-22 16:20] VITALS: BP 136/64; PULSE 78; RESP 20; TEMP 98
--- NOTE | 2021-10-22 16:56 | ED ---
General Adult HPI - General Chief complaint: Extremity Injury, Upper Stated complaint: ring stuck on finger Source: patient Mode of arrival: wheelchair Limitations: no limitations - History of Present Illness Initial comments: 76-year-old female presents the emergency department requesting that her left fourth finger ring be cut off. She sustained a fell and broke 2 bones in her hand. [facility] being [facility] by Dr. melgar. He placed a wrist brace on her. She did have her wedding ring on was having considerable swelling or fourth digit therefore they recommended that she come into the emergency room to have her ring cut off as they do not have one available in their office. - Related Data Home Medications Medication Instructions Recorded Confirmed Insulin Glargine,Hum.rec.anlog 35 unit SQ DAILY 06/21/18 10/20/21 [Lantus Solostar Pen] Pioglitazone [Actos] 45 mg PO DAILY 06/21/18 10/20/21 Simvastatin [Zocor] 20 mg PO HS 06/21/18 10/20/21 FLUoxetine HCL [PROzac] 40 mg PO DAILY 02/20/20 10/20/21 Memantine [Namenda] 10 mg PO BID 02/20/20 10/20/21 buPROPion HCL [Wellbutrin SR] 200 mg PO BID 02/20/20 10/20/21 glipiZIDE [Glucotrol] 10 mg PO BID 02/20/20 10/20/21 Furosemide [Lasix] 40 mg PO BID 06/12/21 10/20/21 Levothyroxine Sodium [Synthroid] 125 mcg PO DAILY 06/12/21 10/20/21 Losartan Potassium [Cozaar] 100 mg PO DAILY 06/12/21 10/20/21 Mirabegron [Myrbetriq] 50 mg PO DAILY 06/12/21 10/20/21 Cranberry Fruit Concentrate [Azo 250 mg PO DAILY 10/06/21 10/20/21 Cranberry] Methenamine Hippurate 1 gm PO BID 10/06/21 10/20/21 Cephalexin [Keflex] 500 mg PO Q8H 10/20/21 10/20/21 Previous Rx's Medication Instructions Recorded carvediloL [Coreg] 6.25 mg PO BID 30 Days #60 tablet 10/11/21 Allergies Allergy/AdvReac Type Severity Reaction Status Date / Time latex Allergy Rash/Hives Verified 10/22/21 16:18 metformin Allergy Rash/Hives Verified 10/22/21 16:18 Sulfa (Sulfonamide Allergy Anaphylaxis Verified 10/22/21 16:18 Antibiotics) Review of Systems ROS Statement: Those systems with pertinent positive or pertinent negative responses have been documented in the HPI. ROS Other: All systems not noted in ROS Statement are negative. Past Medical History Past Medical History: Diabetes Mellitus, Hypertension, Thyroid Disorder Additional Past Medical History / Comment(s): URINARY INCONTINENCE, "cognitive disorder" History of Any Multi-Drug Resistant Organisms: None Reported Past Surgical History: Back Surgery, Tubal Ligation Additional Past Surgical History / Comment(s): Tubal ligation Past Anesthesia/Blood Transfusion Reactions: No Reported Reaction Past Psychological History: No Psychological Hx Reported Smoking Status: Never smoker Past Alcohol Use History: None Reported Past Drug Use History: None Reported - Past Family History Father Family Medical History: Cancer General Exam Limitations: no limitations Course Vital Signs 10/22/21 16:18 Temperature 98.0 F Pulse Rate 78 Respiratory 20 Rate Blood Pressure 136/64 O2 Sat by Pulse 98 Oximetry Medical Decision Making - Medical Decision Making Patient's ring is cut off without difficulty and given to the patient. Instructed to rest, ice and elevate the extremity and wear the brace. She does have follow-up with Dr. Melgar in 2 weeks. Return for any new or worsening symptoms. Disposition Clinical Impression: Hand swelling, Fall Disposition: HOME SELF-CARE Condition: Stable Instructions (If sedation given, give patient instructions): Swollen Joint (ED) Additional Instructions: Take the pain medications as directed. Elevate the hand. Ice. Return to the emergency room for any worsening symptoms Is patient prescribed a controlled substance at d/c from ED?: No Referrals: Tina Quesada MD [Primary Care Provider] - 1-2 days Ran Melgar DO [Doctor of Osteopathic Medicine] - 1-2 days Time of Disposition: 16:55
== END 2021-10-22 17:13 | disposition home or self-care (01) ==
LOC: EC 16:08
DX: M79.89 Other specified soft tissue disorders (principal); E11.9 Type 2 diabetes mellitus without complications; I10 Essential (primary) hypertension; Z79.4 Long term (current) use of insulin; Z79.84 Long term (current) use of oral hypoglycemic drugs; Z79.890 Hormone replacement therapy; Z79.899 Other long term (current) drug therapy; W19.XXXA Unspecified fall, initial encounter; W49.04XA Ring or other jewelry causing external constriction, initial encounter
CPT/HCPCS: 99283

== ENCOUNTER 2022-02-20 10:14 | Emergency (ER) | payer MEDICARE ==
[2022-02-20 10:21] VITALS: BP 118/54; PULSE 65; RESP 18; TEMP 97.9
--- NOTE | 2022-02-20 10:50 | XR ---
EXAMINATION TYPE: XR wrist complete RT DATE OF EXAM: 02/20/2022 CLINICAL HISTORY: Fall injury with pain TECHNIQUE: Frontal, lateral and oblique images of the right wrist are obtained. 4 view scaphoid vie w is performed. COMPARISON: Right hand x-ray February 20, 2020 FINDINGS: Osseous structures are demineralized which is noted to lower radiographic sensitivity. There is acute avulsion type fracture from the ulnar styloid with small ill-defined ossific fracture fragments. There is an acute comminuted impacted intra-articular fracture distal radial meta-epiphysi s. Slightly widening of the scapholunate space raises concern for ligamentous disruption. Mild to mod erate associated soft tissue swelling noted. Moderate to severe triscaphe degenerative changes in degenerative changes at base of first metacarpal are redemonstrated. IMPRESSION: As above.
[2022-02-20] MEDS ORDERED: MORPHINE SULFATE 4 MG/ML SYRINGE IM STA (11:13)
--- NOTE | 2022-02-20 11:19 | ED ---
Upper Extremity HPI - General Chief Complaint: Extremity Injury, Upper Stated Complaint: fall, rt wrist injury Time Seen by Provider: 02/20/22 10:58 Source: patient Mode of arrival: ambulatory Limitations: no limitations - History of Present Illness Initial Comments: Patient is a 76-year-old female is brought to the emergency room by her after he woke up this morning and found her to have placed her left old with brace on her right hand after falling on her buttocks during the night and bracing her fall with her right hand. She denies any pain or trauma anywhere else. She does have a history of multiple falls in the past and cognitive delay. She reports that range of motion has been limited and she has severe pain in the joint without any numbness or tingling. She has not taken any medication for the pain today. [facility] with [facility] fractures that occurred to her left arm last year. She has a past medical history in addition to her cognitive delay and recurrent falls of diabetes, hypertension and hypothyroidism. She and her spouse deny any other complaints or concerns at this time. - Related Data Home Medications Medication Instructions Recorded Confirmed Insulin Glargine,Hum.rec.anlog 35 unit SQ DAILY 06/21/18 10/20/21 [Lantus Solostar Pen] Pioglitazone [Actos] 45 mg PO DAILY 06/21/18 10/20/21 Simvastatin [Zocor] 20 mg PO HS 06/21/18 10/20/21 FLUoxetine HCL [PROzac] 40 mg PO DAILY 02/20/20 10/20/21 Memantine [Namenda] 10 mg PO BID 02/20/20 10/20/21 buPROPion HCL [Wellbutrin SR] 200 mg PO BID 02/20/20 10/20/21 glipiZIDE [Glucotrol] 10 mg PO BID 02/20/20 10/20/21 Furosemide [Lasix] 40 mg PO BID 06/12/21 10/20/21 Levothyroxine Sodium [Synthroid] 125 mcg PO DAILY 06/12/21 10/20/21 Losartan Potassium [Cozaar] 100 mg PO DAILY 06/12/21 10/20/21 Mirabegron [Myrbetriq] 50 mg PO DAILY 06/12/21 10/20/21 Cranberry Fruit Concentrate [Azo 250 mg PO DAILY 10/06/21 10/20/21 Cranberry] Methenamine Hippurate 1 gm PO BID 10/06/21 10/20/21 Cephalexin [Keflex] 500 mg PO Q8H 10/20/21 10/20/21 Previous Rx's Medication Instructions Recorded carvediloL [Coreg] 6.25 mg PO BID 30 Days #60 tablet 10/11/21 Allergies Allergy/AdvReac Type Severity Reaction Status Date / Time latex Allergy Rash/Hives Verified 02/20/22 10:21 metformin Allergy Rash/Hives Verified 02/20/22 10:21 Sulfa (Sulfonamide Allergy Anaphylaxis Verified 02/20/22 10:21 Antibiotics) Review of Systems ROS Statement: Those systems with pertinent positive or pertinent negative responses have been documented in the HPI. ROS Other: All systems not noted in ROS Statement are negative. Past Medical History Past Medical History: Diabetes Mellitus, Hypertension, Thyroid Disorder Additional Past Medical History / Comment(s): URINARY INCONTINENCE, "cognitive disorder" History of Any Multi-Drug Resistant Organisms: None Reported Past Surgical History: Back Surgery, Tubal Ligation Additional Past Surgical History / Comment(s): Tubal ligation Past Anesthesia/Blood Transfusion Reactions: No Reported Reaction Past Psychological History: No Psychological Hx Reported Smoking Status: Never smoker Past Alcohol Use History: None Reported Past Drug Use History: None Reported - Past Family History Father Family Medical History: Cancer General Exam Limitations: no limitations General appearance: alert, in no apparent distress Head exam: Present: atraumatic, normocephalic, normal inspection Eye exam: Present: normal appearance, PERRL, EOMI. Absent: scleral icterus, c onjunctival injection, periorbital swelling ENT exam: Present: normal exam, mucous membranes moist Neck exam: Present: normal inspection Respiratory exam: Absent: respiratory distress, accessory muscle use Cardiovascular Exam: Present: regular rate, normal rhythm, normal heart sounds. Absent: systolic murmur, diastolic murmur Right Forearm Wrist exam: Present: tenderness, swelling, ecchymosis, deformity, dislocation. Absent: full ROM, abrasion Vascular: Absent: vascular compromise Neurological exam: Present: alert, CN II-XII intact Expanded Patient oriented to: Present: person, place Psychiatric exam: Present: flat affect Skin exam: Present: warm, dry, intact Course Vital Signs 02/20/22 10:19 Temperature 97.9 F Pulse Rate 65 Respiratory 18 Rate Blood Pressure 118/54 O2 Sat by Pulse 97 Oximetry Medical Decision Making - Medical Decision Making Trip and fall last night with known recurrent falls and known cognitive delay with out any head trauma or loss of consciousness; no need for CT of the head. No trauma to any other joints with the exception of right wrist. X-ray of right wrist to be obtained. No indication for any further diagnostic imaging or laboratory studies at this time. Severe pain 10 out of 10 noted will give IM morphine and monitor response. X-ray right wrist shows acute avulsion type fracture from the ulnar styloid with small ill-defined ossific fracture fragments. There is an acute community impacted intra-articular fracture distal radial meta-epiphysis. Slightly widening of scapholunate spaces raise concern for ligament disruption. Mild to moderate associated soft tissue swelling. Patient improved with IM morphine. Will give Tylenol 3 starter pack to help with pain at home. Alignment with wrist splinting applied and tolerated well. Neurovascularly intact pre-and post splinting. She is already established with [facility] will have her follow-up with [facility] for further evaluation and treatment. Encouraged utilization of splint continuously; may use ice. Case discussed with Dr. Viramontes. - Radiology Data Radiology results: report reviewed, image reviewed X-ray right wrist complete osseous structures are demineralized. There is an acute avulsion type fracture of the from the ulnar styloid with small ill- defined [place] fracture fragments. There is an acute communion impacted intra- articular fracture distal radial metaphysis. Slight widening of the scapholunate spaces raises concern for ligamentous disruption. Mild to moderate associated soft tissue swelling is noted. Moderate to severe triscaphe degenerative changes in the junction change at the base of the first metacarpal are redemonstrated Disposition Clinical Impression: Fracture of wrist, Multiple falls Disposition: HOME SELF-CARE Condition: Stable Instructions (If sedation given, give patient instructions): Arm Fracture in Adults (ED) Additional Instructions: Please utilize splint continuously. Do not remove or submerge in water. Apply ice to affected joint through splint. May utilize Tylenol 3 as needed for pain; starter pack given. Please follow-up with [facility] tomorrow for appointment along with your primary care provider soon. Please return to the emergency room with any worsening of symptoms or concerns. Is patient prescribed a controlled substance at d/c from ED?: No Referrals: Tina Quesada MD [Primary Care Provider] - 1-2 days Vahe Pringle PAC [PHYSICIAN [employer]INE [employer]] - 1-2 days Time of Disposition: 12:24
[2022-02-20] MEDS ORDERED: ACET/COD 300 MG/30 MG STARTER PACK 6 TAB BTL PO STA (12:08)
== END 2022-02-20 12:36 | disposition home or self-care (01) ==
LOC: EC 10:14
DX: S52.591A Other fractures of lower end of right radius, initial encounter for closed fracture (principal); S52.611A Displaced fracture of right ulna styloid process, initial encounter for closed fracture; R29.6 Repeated falls; E11.9 Type 2 diabetes mellitus without complications; I10 Essential (primary) hypertension; E07.9 Disorder of thyroid, unspecified; Z79.4 Long term (current) use of insulin; Z79.84 Long term (current) use of oral hypoglycemic drugs; Z79.890 Hormone replacement therapy; Z79.899 Other long term (current) drug therapy; W19.XXXA Unspecified fall, initial encounter
CPT/HCPCS: 73110; 99284; 96372; J2270

== ENCOUNTER 2022-05-31 09:29 | Emergency (ER) | payer MEDICARE ==
[2022-05-31 09:36] VITALS: RESP 18; TEMP 98.4
--- NOTE | 2022-05-31 10:31 | XR ---
Right hand and right wrist HISTORY: Trauma and pain 3 views of the right hand, 3 views of the right wrist, correlation to prior right wrist dated 02/21/20 and hand dated 02/20/2020 There is distortion of the distal right radius consistent with patient's previously described distal radial fracture. There is widening of the scapholunate distance. Old ulnar styloid fracture present. Bone mineralization is reduced which limits evaluation. 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 There is soft tissue swelling present. IMPRESSION: No acute dislocation dislocation. Soft tissue swelling present. Patient with known fractu res involving the distal radius and ulna.
--- NOTE | 2022-05-31 11:06 | ED ---
Fall HPI - General Chief Complaint: Fall Stated Complaint: fall, arm pain Time Seen by Provider: 05/31/22 09:38 Source: patient, RN notes reviewed Mode of arrival: ambulatory Limitations: no limitations - History of Present Illness Initial Comments: 76-year-old female presents emergency Department with chief complaint of trip, fall. Patient had a mechanical fall complaining of right wrist, hand pain. Patient had recent fractures is followed by Dr. Melgar. Patient denies any significant injuries no loss conscious no headache no dizziness no neck pain. Patient denies any blurred vision no other complaints. - Related Data Home Medications Medication Instructions Recorded Confirmed Insulin Glargine,Hum.rec.anlog 35 unit SQ DAILY 06/21/18 10/20/21 [Lantus Solostar Pen] Pioglitazone [Actos] 45 mg PO DAILY 06/21/18 10/20/21 Simvastatin [Zocor] 20 mg PO HS 06/21/18 10/20/21 FLUoxetine HCL [PROzac] 40 mg PO DAILY 02/20/20 10/20/21 Memantine [Namenda] 10 mg PO BID 02/20/20 10/20/21 buPROPion HCL [Wellbutrin SR] 200 mg PO BID 02/20/20 10/20/21 glipiZIDE [Glucotrol] 10 mg PO BID 02/20/20 10/20/21 Furosemide [Lasix] 40 mg PO BID 06/12/21 10/20/21 Levothyroxine Sodium [Synthroid] 125 mcg PO DAILY 06/12/21 10/20/21 Losartan Potassium [Cozaar] 100 mg PO DAILY 06/12/21 10/20/21 Mirabegron [Myrbetriq] 50 mg PO DAILY 06/12/21 10/20/21 Cranberry Fruit Concentrate [Azo 250 mg PO DAILY 10/06/21 10/20/21 Cranberry] Methenamine Hippurate 1 gm PO BID 10/06/21 10/20/21 Cephalexin [Keflex] 500 mg PO Q8H 10/20/21 10/20/21 Previous Rx's Medication Instructions Recorded carvediloL [Coreg] 6.25 mg PO BID 30 Days #60 tablet 10/11/21 Allergies Allergy/AdvReac Type Severity Reaction Status Date / Time latex Allergy Rash/Hives Verified 05/31/22 09:37 metformin Allergy Rash/Hives Verified 05/31/22 09:37 Sulfa (Sulfonamide Allergy Anaphylaxis Verified 05/31/22 09:37 Antibiotics) Review of Systems ROS Statement: Those systems with pertinent positive or pertinent negative responses have been documented in the HPI. ROS Other: All systems not noted in ROS Statement are negative. Past Medical History Past Medical History: Diabetes Mellitus, Hypertension, Thyroid Disorder Additional Past Medical History / Comment(s): URINARY INCONTINENCE, "cognitive disorder" History of Any Multi-Drug Resistant Organisms: None Reported Past Surgical History: Back Surgery, Tubal Ligation Additional Past Surgical History / Comment(s): Tubal ligation Past Anesthesia/Blood Transfusion Reactions: No Reported Reaction Past Psychological History: No Psychological Hx Reported Smoking Status: Never smoker Past Alcohol Use History: None Reported Past Drug Use History: None Reported - Past Family History Father Family Medical History: Cancer General Exam Limitations: no limitations General appearance: alert, in no apparent distress Head exam: Present: atraumatic, normocephalic, normal inspection Eye exam: Present: normal appearance, PERRL, EOMI. Absent: scleral icterus, conjunctival injection, periorbital swelling ENT exam: Present: normal exam, normal oropharynx, mucous membranes moist Neck exam: Present: normal inspection, full ROM. Absent: tenderness, meningismus, lymphadenopathy Respiratory exam: Present: normal lung sounds bilaterally. Absent: respiratory distress, wheezes, rales, rhonchi, stridor Cardiovascular Exam: Present: regular rate, normal rhythm, normal heart sounds. Absent: systolic murmur, diastolic murmur, rubs, gallop, clicks Extremities exam: Present: other (Right hand there is moderate swelling, tenderness of the wrist, digits 3 and 4, neurovascular intact) Neurological exam: Present: alert, oriented X3, CN II-XII intact, reflexes normal. Absent: motor sensory deficit Skin exam: Present: warm, dry, intact, normal color. Absent: rash Course Vital Signs 05/31/22 09:32 Temperature 98.4 F Pulse Rate 102 H Respiratory 18 Rate Blood Pressure 145/64 O2 Sat by Pulse 97 Oximetry Procedures - Orthopedic Splinting/Casting Injury #1 Side: right Upper Extremity Injury Location: short arm, wrist Upper Extremity Immobilizer: volar splint, synthetic pre-padded splint Medical Decision Making - Medical Decision Making X-ray does not show definite acute fractureold fractures patient was splinted secondary to pain, swelling. Disposition Clinical Impression: Right wrist injury, Fall Disposition: HOME SELF-CARE Condition: Stable Instructions (If sedation given, give patient instructions): Wrist Injury (ED) Additional Instructions: Please return to the Emergency Department if symptoms worsen or any other concerns. Is patient prescribed a controlled substance at d/c from ED?: No Referrals: Tina Quesada MD [Primary Care Provider] - 1-2 days Time of Disposition: 11:04
[2022-05-31 11:25] VITALS: BP 138/60; PULSE 98
== END 2022-05-31 11:23 | disposition home or self-care (01) ==
LOC: EC 09:29
DX: S69.91XA Unspecified injury of right wrist, hand and finger(s), initial encounter (principal); E11.9 Type 2 diabetes mellitus without complications; I10 Essential (primary) hypertension; E07.9 Disorder of thyroid, unspecified; Z79.4 Long term (current) use of insulin; Z79.84 Long term (current) use of oral hypoglycemic drugs; Z79.890 Hormone replacement therapy; Z91.040 Latex allergy status; Z88.8 Allergy status to other drugs, medicaments and biological substances; Z88.2 Allergy status to sulfonamides; W01.0XXA Fall on same level from slipping, tripping and stumbling without subsequent striking against object, initial encounter
CPT/HCPCS: 29125; 99284

== ENCOUNTER 2022-06-07 12:20 | Inpatient (IN) | payer MEDICARE ==
--- NOTE | 2022-06-07 16:44 | ED ---
General Adult HPI - General Chief complaint: Fall Stated complaint: fall, back injury Time Seen by Provider: 06/07/22 16:27 Source: patient Mode of arrival: ambulatory Limitations: no limitations - History of Present Illness Initial comments: Dictation was produced using [employer] dictation software. please excuse any grammatical, word or spelling errors. Chief Complaint: 76-year-old female with worsening debility presents with for frequent falls and poor social situation History of Present Illness: This is a 76-year-old female she requires significant assistance. She is here in emergency Department with after was instructed by primary care doctor to bring patient to the emergency department. Primary care physician for the patient is Dr. Quesada. at the bedside provides most of the history presentthat patient has been suffering from frequent falls over the last 1-2 weeks. Her falls have been occurring much more regularly. states that he has no visible resources at home. 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 He had a discussion with primary care doctor and was told to bring patient to the emergency department. Patient states that she has some lower back pain from a fall suffered this morning. She has a fall at least almost every 2-3 days. The ROS documented in this emergency department record has been reviewed and confirmed by me. Those systems with pertinent positive or negative responses have been documented in the HPI. All other systems are other negative and/or noncontributory. PHYSICAL EXAM: General Impression: Alert and oriented x3, not in acute distress HEENT: Normocephalic atraumatic, extra-ocular movements intact, pupils equal and reactive to light bilaterally, mucous membranes moist. Cardiovascular: Heart regular rate and rhythm Chest: Able to complete full sentences, no retractions, no tachypnea Abdomen: abdomen soft, non-tender, non-distended, no organomegaly Musculoskeletal: Pulses present and equal in all extremities Motor: no focal deficits noted Neurological: CN II-XII grossly intact, no focal motor or sensory deficits noted Skin: Intact with no visualized rashes Psych: Normal affect and mood ED course: 76-year-old female presents to the emergency department for worsening disability. All signs upon arrival are within acceptable limits. At the bedside patient does not appear to be in any acute distress. Patient complaining of lower back pain after fall. And states that he is no longer able to care for given how much assistance she needs. He does not have any appropriate resources at home. Laboratory evaluation obtained. CBC, metabolic panels within acceptable limits. Pending urine studies. Computed tomography scan of the head and C-spine, thoracic and lumbar spine shows no acute processes. No signs of traumatic injury. Chest x-ray pelvis x-ray unremarkable. Given patient's social situation she'll be admitted for social work evaluation. Patient be admitted to Dr. Rubio. EKG interpretation: Ventricular rate 84, sinus rhythm,. 143, QS 94, QTC 413. No ME prolongation, no QTC prolongation, no ST or T-wave changes noted. Overall, this EKG is unremarkable - Related Data Home Medications Medication Instructions Recorded Confirmed Insulin Glargine,Hum.rec.anlog 33 unit SQ DAILY 06/21/18 06/07/22 [Lantus Solostar Pen] Pioglitazone [Actos] 45 mg PO DAILY 06/21/18 06/07/22 Simvastatin [Zocor] 20 mg PO HS 06/21/18 06/07/22 FLUoxetine HCL [PROzac] 40 mg PO DAILY 02/20/20 06/07/22 Memantine [Namenda] 10 mg PO BID 02/20/20 06/07/22 buPROPion HCL [Wellbutrin SR] 200 mg PO BID 02/20/20 06/07/22 glipiZIDE [Glucotrol] 10 mg PO BID 02/20/20 06/07/22 Furosemide [Lasix] 40 mg PO BID 06/12/21 06/07/22 Levothyroxine Sodium [Synthroid] 125 mcg PO DAILY 06/12/21 06/07/22 Losartan Potassium [Cozaar] 100 mg PO DAILY 06/12/21 06/07/22 Mirabegron [Myrbetriq] 50 mg PO DAILY 06/12/21 06/07/22 Methenamine Hippurate 1 gm PO BID 10/06/21 06/07/22 Doxycycline Hyclate 100 mg PO Q12H 06/07/22 06/07/22 Fluconazole [Diflucan] 200 mg PO DAILY 06/07/22 06/07/22 Iron(Unknown) 1 tab PO DAILY 06/07/22 06/07/22 Previous Rx's Medication Instructions Recorded carvediloL [Coreg] 6.25 mg PO BID 30 Days #60 tablet 10/11/21 Allergies Allergy/AdvReac Type Severity Reaction Status Date / Time latex Allergy Rash/Hives Verified 06/07/22 17:21 metformin Allergy Rash/Hives Verified 06/07/22 17:21 Sulfa (Sulfonamide Allergy Anaphylaxis Verified 06/07/22 17:21 Antibiotics) Review of Systems ROS Statement: Those systems with pertinent positive or pertinent negative responses have been documented in the HPI. ROS Other: All systems not noted in ROS Statement are negative. Past Medical History Past Medical History: Diabetes Mellitus, Hypertension, Thyroid Disorder Additional Past Medical History / Comment(s): URINARY INCONTINENCE, "cognitive disorder" History of Any Multi-Drug Resistant Organisms: None Reported Past Surgical History: Back Surgery, Tubal Ligation Additional Past Surgical History / Comment(s): Tubal ligation Past Anesthesia/Blood Transfusion Reactions: No Reported Reaction Past Psychological History: No Psychological Hx Reported Smoking Status: Never smoker Past Alcohol Use History: None Reported Past Drug Use History: None Reported - Past Family History Father Family Medical History: Cancer General Exam Limitations: no limitations Course Vital Signs 06/07/22 12:24 Temperature 98.2 F Pulse Rate 91 Respiratory 20 Rate Blood Pressure 149/65 O2 Sat by Pulse 96 Oximetry Medical Decision Making - Lab Data Result diagrams: 06/07/22 16:47 06/07/22 16:47 Lab Results 06/07/22 06/07/22 06/07/22 Range/Units 16:47 16:47 16:47 WBC 7.4 (3.8-10.6) k/uL RBC 3.37 L (3.80-5.40) m/uL Hgb 10.9 L (11.4-16.0) gm/dL Hct 32.9 L (34.0-46.0) % MCV 97.9 (80.0-100.0) fL MCH 32.4 (25.0-35.0) pg MCHC 33.1 (31.0-37.0) g/dL RDW 12.6 (11.5-15.5) % Plt Count 310 (150-450) k/uL MPV 7.6 Neutrophils % 65 % Lymphocytes % 20 % Monocytes % 7 % Eosinophils % 3 % Basophils % 1 % Neutrophils # 4.8 (1.3-7.7) k/uL Lymphocytes # 1.5 (1.0-4.8) k/uL Monocytes # 0.5 (0-1.0) k/uL Eosinophils # 0.2 (0-0.7) k/uL Basophils # 0.1 (0-0.2) k/uL Sodium 138 (137-145) mmol/L Potassium 3.9 (3.5-5.1) mmol/L Chloride 100 (98-107) mmol/L Carbon Dioxide 30 (22-30) mmol/L Anion Gap 8 mmol/L BUN 21 H (7-17) mg/dL Creatinine 0.93 (0.52-1.04) mg/dL Est GFR (CKD-EPI)AfAm 69 (>60 ml/min/1.73 sqM) Est GFR (CKD-EPI)NonAf 60 (>60 ml/min/1.73 sqM) Glucose 159 H (74-99) mg/dL Calcium 8.6 (8.4-10.2) mg/dL Troponin I <0.012 (0.000-0.034) ng/mL TSH 2.470 (0.465-4.680) mIU/L Disposition Clinical Impression: Gravely disabled Disposition: ADMITTED IP TO THIS HOSP Condition: Fair Referrals: Tina Quesada MD [Primary Care Provider] - 1-2 days Decision Time: 18:18
[2022-06-07 17:00] LABS: Basophils # (A) 0.1 k/uL (0-0.2); Basophils % (A) 1 %; Eosinophils # (A) 0.2 k/uL (0-0.7); Eosinophils % (A) 3 %; HCT 32.9 % (34.0-46.0); HGB 10.9 gm/dL (11.4-16.0); Lymphocytes # (A) 1.5 k/uL (1.0-4.8); Lymphocytes % (A) 20 %; MCH 32.4 pg (25.0-35.0); MCHC 33.1 g/dL (31.0-37.0); MCV 97.9 fL (80.0-100.0); Mean Platelet Volume 7.6; Monocytes # (A) 0.5 k/uL (0-1.0); Monocytes % (A) 7 %; Neutrophils # (A) 4.8 k/uL (1.3-7.7); Neutrophils % (A) 65 %; Platelet Count 310 k/uL (150-450); RBC 3.37 m/uL (3.80-5.40); RDW 12.6 % (11.5-15.5); WBC 7.4 k/uL (3.8-10.6)
[2022-06-07 17:16] LABS: Calcium 8.6 mg/dL (8.4-10.2); Potassium 3.9 mmol/L (3.5-5.1)
--- NOTE | 2022-06-07 17:52 | CT ---
EXAMINATION TYPE: CT brain dorianine wo con DATE OF EXAM: 06/07/2022 COMPARISON: 10/20/2021 HISTORY: multiple recent falls CT DLP: 1448.2 mGycm Automated exposure control for dose reduction was used. Images of the brain and cervical spine obtained without contrast. There is cerebral cortical atrophy. There is no mass effect or midline shift. No sign of intracranial hemorrhage. Calvarium is intact. There is normal alignment of the cervical vertebra. There is degenerative spurring and mild disc spac e narrowing at C5-6 and C6-7. There is spurring also at C4-5. No compression fracture. There is multi level cervical hypertrophic facet arthropathy. The skull base is intact. There is normal aeration of the mastoid sinuses. Occipital bone is intact. IMPRESSION: The level cervical spondylotic changes. No fracture. Cerebral atrophy. No acute intracranial abnormality. No change compared to old exam.
--- NOTE | 2022-06-07 17:56 | CT ---
EXAMINATION TYPE: CT thor lumbar spine wo con DATE OF EXAM: 06/07/2022 COMPARISON: CT lumbar spine 06/12/2021 HISTORY: Pain CT DLP: mGycm Automated exposure control for dose reduction was used. Images obtained from T1 to S1 vertebra without contrast. There is mild thoracic dextroscoliosis. There is thoracolumbar levoscoliosis mild deformity. There is degenerative disc space narrowing throughout the thoracic and lumbar spine. There is multilevel lumb ar vacuum disc. No compression fracture. There is previous posterior fusion surgery at L4-5 with rods and screws. There is a mild L4-5 subluxation. There is no thoracic or lumbar paraspinal mass. No foc al bone destruction. Detail limited in the lower lumbar spine due to metal artifact. No definite spin al stenosis. The sacroiliac joints are intact. Sacroiliac joints are intact. There is pins fixing the right sacroiliac joint. IMPRESSION: Multilevel thoracic and spondylotic changes. Scoliotic deformity. No fracture seen. Lumbar spine is s table compared to old exam. Degenerative mild first-degree L4-5 spondylolisthesis.
--- NOTE | 2022-06-07 17:57 | XR ---
EXAMINATION TYPE: XR chest 1V portable DATE OF EXAM: 06/07/2022 COMPARISON: 06/12/2021 HISTORY: Frequent falls. Pain TECHNIQUE: Single view FINDINGS: Heart is slightly enlarged. There is coarsening of interstitial markings. No gross heart fa ilure. There are no hilar masses. No pleural effusion. Bony thorax is intact. IMPRESSION: Mild cardiomegaly. Mild pulmonary fibrosis. No change compared to old exam.
--- NOTE | 2022-06-07 17:59 | XR ---
EXAMINATION TYPE: XR pelvis AP view DATE OF EXAM: 06/07/2022 COMPARISON: NONE HISTORY: Pain TECHNIQUE: Single view FINDINGS: The pelvic ring is intact. There is osteopenia. There is posterior fusion surgery in the lo wer lumbar spine at L4-5. There are pins fixing the right sacroiliac joint. The proximal femurs are i ntact. No hip fracture. IMPRESSION: Osteopenia. No fracture seen.
[2022-06-07] MEDS ORDERED: NALOXONE 0.4 MG/ML 1 ML VIAL IV PRN (18:16)
[2022-06-08 07:43] LABS: Appearance,Urine Clear (Clear); Bilirubin,Urine Negative (Negative); Blood,Urine Negative (Negative); Color,Urine Yellow; Glucose,Urine (UA) 3+ (Negative); Ketones,Urine Negative (Negative); Leukocyte Esterase,Urine Negative (Negative); Nitrite,Urine Negative (Negative); Protein,Urine 1+ (Negative); RBC,Urine 2 /hpf (0-5); Specific Gravity,Urine 1.018 (1.001-1.035); Squamous Epithelial Cell,Urine 1 /hpf (0-4); Urobilinogen,Urine <2.0 mg/dL (<2.0); WBC,Urine 1 /hpf (0-5)
[2022-06-08] MEDS ORDERED: glipiZIDE 10 MG TAB PO SCH (09:00)
[2022-06-08] MEDS ORDERED: FLUoxetine HCL 20 MG CAP PO SCH (09:00)
[2022-06-08] MEDS ORDERED: DEXTROSE 50% SYRINGE 50 ML IVP PRN (09:11)
--- NOTE | 2022-06-08 09:48 | P.HPIM ---
History of Present Illness H&P Date: 06/08/22 Chief Complaint: Disability frequent falls This is a 76-year-old female patient of Dr. Quesada who presented with concerns of weakness and frequent falls. Patient is a poor historian. According to ER records per patient's patient has been having increased falls over the past 1-2 weeks. Patient denies any recent illness. Patient does have a past medical history of, urinary incontinence and cognitive disorder. Head CT was performed in ER showing no change compared to old exam no acute intracranial abnormality. Thoracic and lumbar x-ray completed showing multilevel thoracic and spondylitic changes. Sclerotic deformity no fracture seen lumbar spine is stable compared to old exam. Degenerative mild first-degree L4 to L5 spondylolithiasis. Chest x-ray completed showing mild cardiomegaly no pulmonary fibrosis no change compared to old exam. Pelvis x-ray completed showing osteopenia no fracture seen. UA negative. Patient does have open wounds to lower extremities. Will consult wound care. Patient denies chest pain or shortness of breath. Patient denies nausea vomiting or diarrhea. Patient denies any urinary burning or frequency. Will consult PT OT and social work services for possible rehab placement Review of Systems Please refer to HPI otherwise unremarkable Past Medical History Past Medical History: Diabetes Mellitus, Hypertension, Thyroid Disorder Additional Past Medical History / Comment(s): URINARY INCONTINENCE, "cognitive disorder" History of Any Multi-Drug Resistant Organisms: None Reported Past Surgical History: Back Surgery, Tubal Ligation Additional Past Surgical History / Comment(s): Tubal ligation Past Anesthesia/Blood Transfusion Reactions: No Reported Reaction Past Psychological History: No Psychological Hx Reported Smoking Status: Never smoker Past Alcohol Use History: None Reported Past Drug Use History: None Reported - Past Family History Father Family Medical History: Cancer Medications and Allergies Home Medications Medication Instructions Recorded Confirmed Type Insulin Glargine,Hum.rec.anlog 33 unit SQ DAILY 06/21/18 06/07/22 History [Lantus Solostar Pen] Pioglitazone [Actos] 45 mg PO DAILY 06/21/18 06/07/22 History Simvastatin [Zocor] 20 mg PO HS 06/21/18 06/07/22 History FLUoxetine HCL [PROzac] 40 mg PO DAILY 02/20/20 06/07/22 History Memantine [Namenda] 10 mg PO BID 02/20/20 06/07/22 History buPROPion HCL [Wellbutrin SR] 200 mg PO BID 02/20/20 06/07/22 History glipiZIDE [Glucotrol] 10 mg PO BID 02/20/20 06/07/22 History Furosemide [Lasix] 40 mg PO BID 06/12/21 06/07/22 History Levothyroxine Sodium [Synthroid] 125 mcg PO DAILY 06/12/21 06/07/22 History Losartan Potassium [Cozaar] 100 mg PO DAILY 06/12/21 06/07/22 History Mirabegron [Myrbetriq] 50 mg PO DAILY 06/12/21 06/07/22 History Methenamine Hippurate 1 gm PO BID 10/06/21 06/07/22 History carvediloL [Coreg] 6.25 mg PO BID 30 Days #60 tablet 10/11/21 06/07/22 Rx Doxycycline Hyclate 100 mg PO Q12H 06/07/22 06/07/22 History Fluconazole [Diflucan] 200 mg PO DAILY 06/07/22 06/07/22 History Iron(Unknown) 1 tab PO DAILY 06/07/22 06/07/22 History Allergies Allergy/AdvReac Type Severity Reaction Status Date / Time latex Allergy Rash/Hives Verified 06/07/22 17:21 metformin Allergy Rash/Hives Verified 06/07/22 17:21 Sulfa (Sulfonamide Allergy Anaphylaxis Verified 06/07/22 17:21 Antibiotics) Physical Exam Vitals: Vital Signs Temp Pulse Pulse Resp BP BP Pulse Ox 06/08/22 08:50 99.7 F H 94 18 158/69 92 L 06/08/22 07:32 73 18 172/74 95 06/07/22 23:00 71 15 129/84 98 06/07/22 21:00 74 15 133/88 97 06/07/22 18:59 92 18 190/95 92 L 06/07/22 12:24 98.2 F 91 20 149/65 96 Intake and Output 06/07/22 06/08/22 06/08/22 22:59 06:59 14:59 Other: # Voids 1 Head normocephalic Neck supple Lungs clear to auscultation bilaterally no wheezing or crackles Heart regular rate and rhythm S1-S2, no rub or gallop Abdomen is soft nontender nondistended positive bowel sounds no hepatosplenomegaly Extremities no edema. Bilateral erythema noted to lower extremities. Neuro alert and orientated to 3 Results CBC & Chem 7: 06/07/22 16:47 06/07/22 16:47 Labs: Abnormal Lab Results - Last 24 Hours (Table) 06/07/22 06/07/22 06/08/22 Range/Units 16:47 16:47 07:36 RBC 3.37 L (3.80-5.40) m/uL Hgb 10.9 L (11.4-16.0) gm/dL Hct 32.9 L (34.0-46.0) % BUN 21 H (7-17) mg/dL Glucose 159 H (74-99) mg/dL Urine Protein 1+ H (Negative) Urine Glucose (UA) 3+ H (Negative) Assessment and Plan Assessment: 1. Generalized weakness with frequent falls and physical debility 2. Lower extremity cellulitis 3. History of essential hypertension 4. Diabetes mellitus type 2 5. History of hypothyroidism DVT prophylaxis Lovenox. GI prophylaxis Protonix Wound care service is consulted PT OT and social work services consulted Repeat labs ordered Time with Patient: Greater than 30 (Greater than 60% of the total time spent in counseling and coordination of care)
--- NOTE | 2022-06-08 10:54 | P.CONS ---
History of Present Illness - Reason for Consult Consult date: 06/08/22 wound care - History of Present Illness 76-year-old patient who is a poor historian being seen on 5 [address]. for nonhealing ulcerations to bilateral lower extremities anterior aspect. Patient is being seen due to weakness and multiple falls. Patient has erythema to bilateral lower extremities with multiple ulcerations that are Limited to skin breakdown. Patient has Slough and minimal granulation noted within the wound beds. No tunneling or undermining noted to the ulcerations wound edges are attached to the wound base. Patient's past medical history significant for diabetes, hypertension, thyroid disease, she is a former smoker in her teens with 1 pack a day his crit for 50+ years. Review Of Systems: Constitutional: No fever, no chills, no night sweats. No weight change. No weakness, fatigue or lethargy. No daytime sleepiness. Integumentary:reports wounds, no lesions. No rash or pruritus. No unusual bruising. No change in hair or nails. Physical exam: General Appearance: Alert, cooperative, no distress, appears stated age. Skin: See HPI all other Skin color, texture, tugor normal, no rashes or lesions. Neurologic: Alert oriented x3 Assessment: 1. Nonhealing ulcerations to left lower extremity Limited to skin breakdown 2. Nonhealing ulcerations to right lower extremity Limited to skin breakdown 3. Diabetes a skin ulceration Plan: 1. Apply Silvadene, wrap with Kerlix and Lake wrap. Change daily. Thank you for the consultation any questions please contact the wound care center DNP note has been reviewed and discussed with Dr. Cristobal and the impression and plan of care has been directed as dictated. Past Medical History Past Medical History: Diabetes Mellitus, Hypertension, Thyroid Disorder Additional Past Medical History / Comment(s): URINARY INCONTINENCE, "cognitive disorder" History of Any Multi-Drug Resistant Organisms: None Reported Past Surgical History: Back Surgery, Tubal Ligation Additional Past Surgical History / Comment(s): Tubal ligation Past Anesthesia/Blood Transfusion Reactions: No Reported Reaction Past Psychological History: No Psychological Hx Reported Smoking Status: Never smoker Past Alcohol Use History: None Reported Past Drug Use History: None Reported - Past Family History Father Family Medical History: Cancer Medications and Allergies Home Medications Medication Instructions Recorded Confirmed Type Insulin Glargine,Hum.rec.anlog 33 unit SQ DAILY 06/21/18 06/07/22 History [Lantus Solostar Pen] Pioglitazone [Actos] 45 mg PO DAILY 06/21/18 06/07/22 History Simvastatin [Zocor] 20 mg PO HS 06/21/18 06/07/22 History FLUoxetine HCL [PROzac] 40 mg PO DAILY 02/20/20 06/07/22 History Memantine [Namenda] 10 mg PO BID 02/20/20 06/07/22 History buPROPion HCL [Wellbutrin SR] 200 mg PO BID 02/20/20 06/07/22 History glipiZIDE [Glucotrol] 10 mg PO BID 02/20/20 06/07/22 History Furosemide [Lasix] 40 mg PO BID 06/12/21 06/07/22 History Levothyroxine Sodium [Synthroid] 125 mcg PO DAILY 06/12/21 06/07/22 History Losartan Potassium [Cozaar] 100 mg PO DAILY 06/12/21 06/07/22 History Mirabegron [Myrbetriq] 50 mg PO DAILY 06/12/21 06/07/22 History Methenamine Hippurate 1 gm PO BID 10/06/21 06/07/22 History carvediloL [Coreg] 6.25 mg PO BID 30 Days #60 tablet 10/11/21 06/07/22 Rx Doxycycline Hyclate 100 mg PO Q12H 06/07/22 06/07/22 History Fluconazole [Diflucan] 200 mg PO DAILY 06/07/22 06/07/22 History Iron(Unknown) 1 tab PO DAILY 06/07/22 06/07/22 History Allergies Allergy/AdvReac Type Severity Reaction Status Date / Time latex Allergy Rash/Hives Verified 06/07/22 17:21 metformin Allergy Rash/Hives Verified 06/07/22 17:21 Sulfa (Sulfonamide Allergy Anaphylaxis Verified 06/07/22 17:21 Antibiotics) Physical Exam Vitals: Vital Signs Temp Pulse Pulse Resp BP BP Pulse Ox 06/08/22 08:50 99.7 F H 94 18 158/69 92 L 06/08/22 07:32 73 18 172/74 95 06/07/22 23:00 71 15 129/84 98 06/07/22 21:00 74 15 133/88 97 06/07/22 18:59 92 18 190/95 92 L 06/07/22 12:24 98.2 F 91 20 149/65 96 Intake and Output 06/07/22 06/08/22 06/08/22 22:59 06:59 14:59 Other: # Voids 1 Results CBC & Chem 7: 06/07/22 16:47 06/07/22 16:47 Labs: Abnormal Lab Results - Last 24 Hours (Table) 06/07/22 06/07/22 06/08/22 Range/Units 16:47 16:47 07:36 RBC 3.37 L (3.80-5.40) m/uL Hgb 10.9 L (11.4-16.0) gm/dL Hct 32.9 L (34.0-46.0) % BUN 21 H (7-17) mg/dL Glucose 159 H (74-99) mg/dL Urine Protein 1+ H (Negative) Urine Glucose (UA) 3+ H (Negative) Assessment and Plan (1) Non-pressure chronic ulcer of other part of left lower leg limited to breakdown of skin Current Visit: Yes Status: Acute Code(s): L97.821 - NON-PRS CHR ULCER OTH PRT L LOW LEG LIMITED TO BRKDWN SKIN SNOMED Code(s): 65688179205913034 (2) Non-pressure chronic ulcer of other part of right lower leg limited to breakdown of skin Current Visit: Yes Status: Acute Code(s): L97.811 - NON-PRS CHR ULCER OTH PRT R LOW LEG LIMITED TO BRKDWN SKIN SNOMED Code(s): 98055114802030175 (3) Type 2 diabetes mellitus with other skin ulcer Current Visit: Yes Status: Acute Code(s): E11.622 - TYPE 2 DIABETES MELLITUS WITH OTHER SKIN ULCER; L98.499 - NON-PRESSURE CHRONIC ULCER OF SKIN OF SITES W UNSP SEVERITY SNOMED Code(s): 573196422
[2022-06-08 10:56] LABS: Basophils % (A) 1 %; Eosinophils # (A) 0.2 k/uL (0-0.7); Eosinophils % (A) 2 %; HCT 32.3 % (34.0-46.0); HGB 10.6 gm/dL (11.4-16.0); Hypochromasia Slight; Lymphocytes % (A) 14 %; MCH 32.4 pg (25.0-35.0); MCHC 32.7 g/dL (31.0-37.0); MCV 99.1 fL (80.0-100.0); Mean Platelet Volume 7.6; Monocytes # (A) 0.5 k/uL (0-1.0); Monocytes % (A) 6 %; Neutrophils # (A) 5.3 k/uL (1.3-7.7); Neutrophils % (A) 74 %; Platelet Count 292 k/uL (150-450); RBC 3.26 m/uL (3.80-5.40); RDW 12.6 % (11.5-15.5); WBC 7.2 k/uL (3.8-10.6)
[2022-06-08 11:18] LABS: ALT 26 U/L (4-34); AST 25 U/L (14-36); African American GFR (CKD) 76 (>60 ml/min/1.73 sqM); Albumin 3.1 g/dL (3.5-5.0); Albumin/Globulin Ratio 1.1; Alkaline Phosphatase 139 U/L (38-126); Anion Gap 8 mmol/L; Blood Urea Nitrogen 15 mg/dL (7-17); Calcium 8.2 mg/dL (8.4-10.2); Carbon Dioxide 29 mmol/L (22-30); Chloride 101 mmol/L (98-107); Globulin 2.8 g/dL; Glucose 183 mg/dL (74-99); Non-African American GFR(CKD) 66 (>60 ml/min/1.73 sqM); Potassium 4.1 mmol/L (3.5-5.1); Sodium 138 mmol/L (137-145); Total Bilirubin 0.4 mg/dL (0.2-1.3); Total Protein 5.9 g/dL (6.3-8.2)
[2022-06-08 11:18] LABS: Glucose,Whole Blood 198 mg/dL (70-110)
[2022-06-08] MEDS: LEVOTHYROXINE 125 MCG TAB PO SCH (12:16)
[2022-06-08] MEDS: MEMANTINE 10 MG TAB PO SCH ×2 (12:16→20:45)
[2022-06-08] MEDS: INSULIN DETEMIR (LEVEMIR) 100 UNIT/ML SYR SQ SCH (12:16)
[2022-06-08] MEDS: buPROPion SR 100 MG TABLET.ER PO SCH ×2 (12:17→20:45)
[2022-06-08] MEDS: PIOGLITAZONE 45 MG TAB PO SCH (12:17)
[2022-06-08] MEDS: Methenamine Hippurate [Methenamine Hippurate] 1 GM Tablet PO SCH ×2 (12:20→20:30)
[2022-06-08] MEDS: LOSARTAN 50 MG TAB PO SCH (12:24)
[2022-06-08] MEDS: carvediloL 6.25 MG TAB PO SCH ×2 (12:24→16:49)
[2022-06-08] MEDS: INSULIN ASPART (NovoLOG) 100 UNIT/ML VIAL SQ SCH ×3 (12:24→20:45)
[2022-06-08] MEDS: FUROSEMIDE 40 MG TAB PO SCH ×2 (12:24→16:49)
[2022-06-08 17:03] LABS: Glucose,Whole Blood 267 mg/dL (70-110)
[2022-06-08 19:23] LABS: % Iron Saturation 9.4 (12.00-45.00)
[2022-06-08 20:28] LABS: Glucose,Whole Blood 223 mg/dL (70-110)
[2022-06-08] MEDS: ATORVASTATIN 10 MG TAB PO SCH (20:45)
[2022-06-09] MEDS: LEVOTHYROXINE 125 MCG TAB PO SCH (05:36)
[2022-06-09] MEDS: INSULIN ASPART (NovoLOG) 100 UNIT/ML VIAL SQ SCH ×4 (08:34→20:57)
[2022-06-09 08:41] LABS: Basophils # (A) 0.04 X 10*3/uL (0.00-0.10); Basophils % (A) 0.4 %; Eosinophils # (A) 0.02 X 10*3/uL (0.04-0.35); Eosinophils % (A) 0.2 %; HCT 31.2 % (37.2-46.3); HGB 10.1 g/dL (12.0-15.0); Immature Grans, Automated 0.6 %; Lymphocytes # (A) 0.91 X 10*3/uL (0.90-5.00); Lymphocytes % (A) 9.8 %; MCH 32.1 pg (27.0-32.0); MCHC 32.4 g/dL (32.0-37.0); Mean Platelet Volume 9.8 fL (9.5-12.2); Monocytes # (A) 0.59 X 10*3/uL (0.20-1.00); Monocytes % (A) 6.3 %; NRBC Per 100 WBC 0 /100 WBCS (0.0-0.0); Neutrophils # (A) 7.71 X 10*3/uL (1.80-7.70); Neutrophils % (A) 82.7 %; Platelet Count 285 X 10*3/uL (140-440); RBC 3.15 X 10*6/uL (4.10-5.20); RDW 13.1 % (11.5-14.5); WBC 9.33 X 10*3/uL (4.50-10.00)
[2022-06-09 08:49] LABS: ALT 22 U/L (8-44); AST 22 U/L (13-35); African American GFR (CKD) 62.5 (60.0-200.0); Albumin 3.2 g/dL (3.8-4.9); Albumin/Globulin Ratio 1.14 (1.60-3.17); Alkaline Phosphatase 129 U/L (41-126); Blood Urea Nitrogen 16.9 mg/dL (9.0-27.0); Calcium 8.5 mg/dL (8.7-10.3); Carbon Dioxide 30.1 mmol/L (20.0-27.5); Chloride 100 mmol/L (96-109); Globulin 2.8 g/dL (1.6-3.3); Glucose 57 mg/dL (70-110); Non-African American GFR(CKD) 53.9 (60.0-200.0); Potassium 3.7 mmol/L (3.5-5.5); Sodium 141 mmol/L (135-145); Total Bilirubin <0.15 mg/dL (0.30-1.20)
--- NOTE | 2022-06-09 08:58 | P.CONS ---
History of Present Illness - Reason for Consult Consult date: 06/08/22 - History of Present Illness Patient is a 76-year-old female with a past medical history pertinent for hypertension diabetes mellitus presenting to the ER for evaluation of weakness and frequent fall patient also having bilateral lower extremity swelling and some superficial ulceration from ruptured blister patient mention symptom has been going on for a week or 2 in the outpatient setting apparently has been treated with oral doxycycline without any improvement with the symptoms the patient presented to hospital on arrival to the ER the patient did have low- grade fever of 99.7 F patient did have a normal white count kidney function was normal liver enzymes are normal urine has been negative patient did have a chest x-ray mild cardiomegaly pulmonary fibrosis patient noticed to have a bilateral lower extremity superficial ulceration and cellulitis for the patient was started on cefazolin infectious disease was consulted for further management of antibiotic therapy patient be complaining of dull aching pain to bilateral lower extremity intensity 4 to 5-10 no radiation denies have any foul-smelling drainage from the leg wounds Past Medical History Past Medical History: Diabetes Mellitus, Hypertension, Thyroid Disorder Additional Past Medical History / Comment(s): URINARY INCONTINENCE, "cognitive disorder" History of Any Multi-Drug Resistant Organisms: None Reported Past Surgical History: Back Surgery, Tubal Ligation Additional Past Surgical History / Comment(s): Tubal ligation Past Anesthesia/Blood Transfusion Reactions: No Reported Reaction Past Psychological History: No Psychological Hx Reported Smoking Status: Never smoker Past Alcohol Use History: None Reported Additional Past Alcohol Use History / Comment(s): SMOKED FOR 4 YRS A TEEN, 1PPD Past Drug Use History: None Reported - Past Family History Father Family Medical History: Cancer Medications and Allergies Home Medications Medication Instructions Recorded Confirmed Type Insulin Glargine,Hum.rec.anlog 33 unit SQ DAILY 06/21/18 06/07/22 History [Lantus Solostar Pen] Pioglitazone [Actos] 45 mg PO DAILY 06/21/18 06/07/22 History Simvastatin [Zocor] 20 mg PO HS 06/21/18 06/07/22 History FLUoxetine HCL [PROzac] 40 mg PO DAILY 02/20/20 06/07/22 History Memantine [Namenda] 10 mg PO BID 02/20/20 06/07/22 History buPROPion HCL [Wellbutrin SR] 200 mg PO BID 02/20/20 06/07/22 History glipiZIDE [Glucotrol] 10 mg PO BID 02/20/20 06/07/22 History Furosemide [Lasix] 40 mg PO BID 06/12/21 06/07/22 History Levothyroxine Sodium [Synthroid] 125 mcg PO DAILY 06/12/21 06/07/22 History Losartan Potassium [Cozaar] 100 mg PO DAILY 06/12/21 06/07/22 History Mirabegron [Myrbetriq] 50 mg PO DAILY 06/12/21 06/07/22 History Methenamine Hippurate 1 gm PO BID 10/06/21 06/07/22 History carvediloL [Coreg] 6.25 mg PO BID 30 Days #60 tablet 10/11/21 06/07/22 Rx Doxycycline Hyclate 100 mg PO Q12H 06/07/22 06/07/22 History Fluconazole [Diflucan] 200 mg PO DAILY 06/07/22 06/07/22 History Iron(Unknown) 1 tab PO DAILY 06/07/22 06/07/22 History Doxycycline Hyclate 100 mg PO BID 06/08/22 06/08/22 History Fluconazole 200 mg PO DAILY 06/08/22 06/08/22 History SILVER sulfADIAZINE CREAM 1 applic TOPICAL DAILY 06/08/22 06/08/22 History [Silvadene Cream] Allergies Allergy/AdvReac Type Severity Reaction Status Date / Time latex Allergy Rash/Hives Verified 06/07/22 17:21 metformin Allergy Rash/Hives Verified 06/07/22 17:21 Sulfa (Sulfonamide Allergy Anaphylaxis Verified 06/07/22 17:21 Antibiotics) Physical Exam Vitals: Vital Signs Temp Pulse Pulse Resp BP BP Pulse Ox 06/08/22 11:20 99.1 F 98 18 175/80 91 L 06/08/22 08:50 99.7 F H 94 18 158/69 92 L 06/08/22 07:32 73 18 172/74 95 06/07/22 23:00 71 15 129/84 98 06/07/22 21:00 74 15 133/88 97 06/07/22 18:59 92 18 190/95 92 L Intake and Output 06/07/22 06/08/22 06/08/22 22:59 06:59 14:59 Other: Voiding Method External Catheter # Voids 1 Weight 87.997 kg Results CBC & Chem 7: 06/09/22 05:52 06/09/22 05:52 Labs: Abnormal Lab Results - Last 24 Hours (Table) 06/07/22 06/07/22 06/08/22 Range/Units 16:47 16:47 07:36 RBC 3.37 L (3.80-5.40) m/uL Hgb 10.9 L (11.4-16.0) gm/dL Hct 32.9 L (34.0-46.0) % BUN 21 H (7-17) mg/dL Glucose 159 H (74-99) mg/dL POC Glucose (mg/dL) (70-110) mg/dL Calcium (8.4-10.2) mg/dL Alkaline Phosphatase (38-126) U/L Total Protein (6.3-8.2) g/dL Albumin (3.5-5.0) g/dL Urine Protein 1+ H (Negative) Urine Glucose (UA) 3+ H (Negative) 06/08/22 06/08/22 06/08/22 Range/Units 10:27 10:27 11:17 RBC 3.26 L (3.80-5.40) m/uL Hgb 10.6 L (11.4-16.0) gm/dL Hct 32.3 L (34.0-46.0) % BUN (7-17) mg/dL Glucose 183 H (74-99) mg/dL POC Glucose (mg/dL) 198 H (70-110) mg/dL Calcium 8.2 L (8.4-10.2) mg/dL Alkaline Phosphatase 139 H (38-126) U/L Total Protein 5.9 L (6.3-8.2) g/dL Albumin 3.1 L (3.5-5.0) g/dL Urine Protein (Negative) Urine Glucose (UA) (Negative) Assessment and Plan Plan: 1patient with bilateral lower extremity cellulitis in this patient did have superficial ulceration likely from a ruptured blister and likely from gram- positive skin latisha failing outpatient oral doxycycline therapy. 2we will increase the dose of cefazolin to 2 g every 8 hours. 3local wound care to continue per the wound care team which has already been consulted and seen the patient. We will follow on clinical condition and cultures to further adjust medication if needed Thank you for this consultation will follow this patient along with you Time with Patient: Greater than 30
[2022-06-09] MEDS: carvediloL 6.25 MG TAB PO SCH ×2 (09:46→17:58)
[2022-06-09] MEDS: FUROSEMIDE 40 MG TAB PO SCH ×2 (09:47→17:59)
[2022-06-09] MEDS: LOSARTAN 50 MG TAB PO SCH (09:48)
[2022-06-09] MEDS: PIOGLITAZONE 45 MG TAB PO SCH (09:49)
[2022-06-09] MEDS: buPROPion SR 100 MG TABLET.ER PO SCH ×2 (09:49→21:04)
[2022-06-09] MEDS: MEMANTINE 10 MG TAB PO SCH ×2 (09:50→21:04)
[2022-06-09] MEDS: PANTOPRAZOLE 40 MG TABLET PO SCH (09:51)
[2022-06-09] MEDS: Methenamine Hippurate [Methenamine Hippurate] 1 GM Tablet PO SCH ×2 (10:29→21:01)
[2022-06-09] MEDS: ENOXAPARIN 40 MG/0.4 ML SYRINGE SQ SCH (10:57)
[2022-06-09 11:12] LABS: Glucose,Whole Blood 129 mg/dL (70-110)
[2022-06-09] MEDS: INSULIN DETEMIR (LEVEMIR) 100 UNIT/ML SYR SQ SCH (11:50)
--- NOTE | 2022-06-09 13:04 | CDI ---
Documentation Clarification Form Date: 06/09/2022 12:54:28 PM From: Harriet Gaitan CCS, CCDS Admit Date: 06/07/2022 06:16:00 PM Patient Name: Shiloh Hampton Visit Number: [id number] Discharge Date: ATTENTION: The Clinical Documentation Specialists (CDI) and [facility] Coding Staff appreciate your assistance in clarifying documentation. Please respond to the clarification below the line at the bottom and electronically sign. The CDI & [facility] Coding staff will review the response and follow-up if needed. Please note: Queries are made part of the Legal Health Record. If you have any questions, please contact the author of this message via ITS. Dr. Quinton Rubio: Anemia is documented in the 06/08 History & Physical Addendum without further specification. Additional specificity regarding the [type, acuity] of anemia is requested. History/Risk Factors per the 06/08 H/P: Frequent falls, Urinary incontinence, Cognitive disorder, Former smoker, DM, Hypertension, Hypothyroid. Clinical indicators: Presented to the ED with her after a fall and low back pain, having frequent falls. Admit with Grave Disability. Hemoglobin 06/07: 10.9. 06/08: 10.6. 06/09: 10.1. Hematocrit 06/07: 32.9. 06/08: 32.3. 06/09: 31.2. Treatment 06/07: H/H, Blood glucose monitoring, Heart Healthy diet (Dysphagia, chopped). 06/08: Routine folate RBC, O2 2Lnc, po home meds: Wellbutrin, Coreg, Lasix, Synthroid, Cozaar, Namenda, Actos, Lipitor, Protonix; Levemir SQ, IV Dextrose prn. IV Cefazolin 50 mls @ 100 mls/hr q8H. Please clarify the type and acuity of Anemia, if known: [ ] Chronic blood loss anemia [ ] Hemolytic anemia [ ] Drug induced anemia [ ] Nutritional anemia [ ] Anemia of chronic disease [ ] Unable to determine [ ] Other, please specify (Template Last Revised: September 2020) MTDD
[2022-06-09 14:42] VITALS: BMI 42.0
[2022-06-09 17:09] LABS: Glucose,Whole Blood 171 mg/dL (70-110)
--- NOTE | 2022-06-09 17:18 | P.PN ---
Subjective Progress Note Date: 06/09/22 Shiloh Hampton is a 76-year-old female patient of Dr. Quesada who presented with concerns of weakness and frequent falls. Patient is a poor historian. According to ER records per patient's patient has been having increased falls over the past 1-2 weeks. Patient denies any recent illness. Patient does have a past medical history of, urinary incontinence and cognitive disorder. Head CT was performed in ER showing no change compared to old exam no acute intracranial abnormality. Thoracic and lumbar x-ray completed showing multilevel thoracic and spondylitic changes. Sclerotic deformity no fracture seen lumbar spine is stable compared to old exam. Degenerative mild first- degree L4 to L5 spondylolithiasis. Chest x-ray completed showing mild cardiomegaly no pulmonary fibrosis no change compared to old exam. Pelvis x-ray completed showing osteopenia no fracture seen. UA negative. Patient does have open wounds to lower extremities. Will consult wound care. Patient denies chest pain or shortness of breath. Patient denies nausea vomiting or diarrhea. Patient denies any urinary burning or frequency. Will consult PT OT and social work services for possible rehab placement On 06/09/2022 patient was seen and examined on the medical floor, She is alert and oriented 3 in no apparent distress, she is still complaining of bilateral lower extremity erythema pain and tenderness otherwise she denies any complaints there is no fever or chills no headache or dizziness no chest pain no shortness of breath no cough no nausea or vomiting no abdominal pain no diarrhea and no urinary symptoms. Patient is still very weak and having difficulty standing and walking Objective - Vital Signs Vital signs: Vital Signs Temp 97.3 F L 06/09/22 09:11 Pulse 72 06/09/22 09:11 Resp 16 06/09/22 09:11 BP 158/85 06/09/22 09:11 Pulse Ox 97 06/09/22 04:33 FiO2 Intake & Output 06/08/22 06/09/22 06/09/22 18:59 06:59 18:59 Intake Total 50 Balance 50 Weight 87.997 kg Intake: Intake, IV Titration 50 Amount ceFAZolin 1,000 mg In 50 Sodium Chloride 0.9% 50 ml @ 100 mls/hr IVPB Q8HR [facility] Rx#:[id number] Other: Voiding Method External Catheter External Catheter # Voids 1 - Exam In general Head normocephalic and atraumatic Neck supple, no JVD Lungs clear to auscultation bilaterally no wheezing or crackles Heart regular rate and rhythm S1-S2, no rub or gallop Abdomen is soft nontender nondistended positive bowel sounds no hepatosplenomegaly Extremities no edema. Bilateral erythema noted to lower extremities. Neuro alert and orientated to 3 - Labs CBC & Chem 7: 06/09/22 05:52 06/09/22 05:52 Labs: Abnormal Lab Results - Last 24 Hours (Table) 06/08/22 06/08/22 06/08/22 Range/Units :09 06: 10: RBC 3.26 L (3.80-5.40) m/uL Hgb 10.6 L (11.4-16.0) gm/dL Hct 32.3 L (34.0-46.0) % MCV (80.0-97.0) fL MCH (27.0-32.0) pg Immature Gran # (0.00-0.04) X 10*3/uL Neutrophils # (1.80-7.70) X 10*3/uL Eosinophils # (0.04-0.35) X 10*3/uL Carbon Dioxide (20.0-27.5) mmol/L Est GFR (CKD-EPI)NonAf (60.0-200.0) Glucose 183 H (74-99) mg/dL POC Glucose (mg/dL) (70-110) mg/dL Hemoglobin A1c 8.9 H (0.0-6.0) % Calcium 8.2 L (8.4-10.2) mg/dL Iron (50-170) ug/dL % Saturation (12.00-45.00) Total Bilirubin (0.30-1.20) mg/dL Alkaline Phosphatase 139 H (38-126) U/L Total Protein 5.9 L (6.3-8.2) g/dL Albumin 3.1 L (3.5-5.0) g/dL Albumin/Globulin Ratio (1.60-3.17) g/dL Vitamin B12 (200.0-944.0) pg/mL 06/08/22 06/08/22 06/08/22 Range/Units : 11:17 17:01 RBC (3.80-5.40) m/uL Hgb (11.4-16.0) gm/dL Hct (34.0-46.0) % MCV (80.0-97.0) fL MCH (27.0-32.0) pg Immature Gran # (0.00-0.04) X 10*3/uL Neutrophils # (1.80-7.70) X 10*3/uL Eosinophils # (0.04-0.35) X 10*3/uL Carbon Dioxide (20.0-27.5) mmol/L Est GFR (CKD-EPI)NonAf (60.0-200.0) Glucose (74-99) mg/dL POC Glucose (mg/dL) 198 H 267 H (70-110) mg/dL Hemoglobin A1c (0.0-6.0) % Calcium (8.4-10.2) mg/dL Iron 29 L (50-170) ug/dL % Saturation 9.40 L (12.00-45.00) Total Bilirubin (0.30-1.20) mg/dL Alkaline Phosphatase (38-126) U/L Total Protein (6.3-8.2) g/dL Albumin (3.5-5.0) g/dL Albumin/Globulin Ratio (1.60-3.17) g/dL Vitamin B12 1063.0 H (200.0-944.0) pg/mL 06/08/22 06/09/22 06/09/22 Range/Units 20:27 05:52 05:52 RBC 3.15 L (3.80-5.40) m/uL Hgb 10.1 L (11.4-16.0) gm/dL Hct 31.2 L (34.0-46.0) % MCV 99.0 H (80.0-97.0) fL MCH 32.1 H (27.0-32.0) pg Immature Gran # 0.06 H (0.00-0.04) X 10*3/uL Neutrophils # 7.71 H (1.80-7.70) X 10*3/uL Eosinophils # 0.02 L (0.04-0.35) X 10*3/uL Carbon Dioxide 30.1 H (20.0-27.5) mmol/L Est GFR (CKD-EPI)NonAf 53.9 L (60.0-200.0) Glucose 57 L (74-99) mg/dL POC Glucose (mg/dL) 223 H (70-110) mg/dL Hemoglobin A1c (0.0-6.0) % Calcium 8.5 L (8.4-10.2) mg/dL Iron (50-170) ug/dL % Saturation (12.00-45.00) Total Bilirubin <0.15 L (0.30-1.20) mg/dL Alkaline Phosphatase 129 H (38-126) U/L Total Protein 6.0 L (6.3-8.2) g/dL Albumin 3.2 L (3.5-5.0) g/dL Albumin/Globulin Ratio 1.14 L (1.60-3.17) g/dL Vitamin B12 (200.0-944.0) pg/mL Assessment and Plan Assessment: 1. Generalized weakness with frequent falls and physical debility 2. Bilateral lower extremity cellulitis, with multiple ulcers 3. History of essential hypertension 4. Diabetes mellitus type 2 5. History of hypothyroidism 6. Anemia with evidence of iron deficiency DVT prophylaxis Lovenox. GI prophylaxis Protonix Wound care service is consulted PT OT and social work services consulted Repeat labs ordered
[2022-06-09 20:15] LABS: Glucose,Whole Blood 136 mg/dL (70-110)
[2022-06-09] MEDS: ATORVASTATIN 10 MG TAB PO SCH (21:03)
[2022-06-10] MEDS: LEVOTHYROXINE 125 MCG TAB PO SCH (06:21)
[2022-06-10 07:24] LABS: Glucose,Whole Blood 94 mg/dL (70-110)
[2022-06-10 08:43] LABS: Basophils # (A) 0.03 X 10*3/uL (0.00-0.10); Basophils % (A) 0.6 %; Eosinophils # (A) 0.21 X 10*3/uL (0.04-0.35); Eosinophils % (A) 3.9 %; HCT 31.4 % (37.2-46.3); Immature Grans, Automated 0.2 %; Lymphocytes % (A) 23.9 %; MCH 32.3 pg (27.0-32.0); MCHC 31.8 g/dL (32.0-37.0); MCV 101.3 fL (80.0-97.0); Monocytes # (A) 0.59 X 10*3/uL (0.20-1.00); Monocytes % (A) 10.8 %; NRBC Per 100 WBC 0 /100 WBCS (0.0-0.0); Neutrophils # (A) 3.31 X 10*3/uL (1.80-7.70); Neutrophils % (A) 60.6 %; Platelet Count 311 X 10*3/uL (140-440); RDW 13.2 % (11.5-14.5); WBC 5.45 X 10*3/uL (4.50-10.00)
[2022-06-10 08:59] LABS: ALT 17 U/L (8-44); AST 21 U/L (13-35); African American GFR (CKD) 62.5 (60.0-200.0); Albumin 3.1 g/dL (3.8-4.9); Albumin/Globulin Ratio 1.19 (1.60-3.17); Alkaline Phosphatase 126 U/L (41-126); Blood Urea Nitrogen 15.2 mg/dL (9.0-27.0); Calcium 8.5 mg/dL (8.7-10.3); Carbon Dioxide 31.8 mmol/L (20.0-27.5); Chloride 99 mmol/L (96-109); Globulin 2.6 g/dL (1.6-3.3); Glucose 100 mg/dL (70-110); Non-African American GFR(CKD) 53.9 (60.0-200.0); Potassium 3.5 mmol/L (3.5-5.5); Sodium 138 mmol/L (135-145); Total Bilirubin <0.15 mg/dL (0.30-1.20); Total Protein 5.7 g/dL (6.2-8.2)
[2022-06-10] MEDS: MEMANTINE 10 MG TAB PO SCH (09:04)
[2022-06-10] MEDS: FUROSEMIDE 40 MG TAB PO SCH (09:05)
[2022-06-10] MEDS: buPROPion SR 100 MG TABLET.ER PO SCH (09:07)
[2022-06-10] MEDS: carvediloL 6.25 MG TAB PO SCH (09:08)
[2022-06-10] MEDS: PIOGLITAZONE 45 MG TAB PO SCH (09:08)
[2022-06-10] MEDS: PANTOPRAZOLE 40 MG TABLET PO SCH (09:10)
[2022-06-10] MEDS: INSULIN ASPART (NovoLOG) 100 UNIT/ML VIAL SQ SCH ×2 (09:23→12:59)
[2022-06-10] MEDS: Methenamine Hippurate [Methenamine Hippurate] 1 GM Tablet PO SCH (10:12)
[2022-06-10] MEDS: LOSARTAN 50 MG TAB PO SCH (10:28)
[2022-06-10] MEDS: INSULIN DETEMIR (LEVEMIR) 100 UNIT/ML SYR SQ SCH (10:29)
[2022-06-10] MEDS: ENOXAPARIN 40 MG/0.4 ML SYRINGE SQ SCH (10:29)
--- NOTE | 2022-06-10 10:38 | P.DS ---
Providers Date of admission: 06/07/22 18:16 Expected date of discharge: 06/10/22 Attending physician: Quinton Rubio Consults: 06/08/22 11:42 Consult Physician Routine Consulting Provider: Jaron Lantigua Consult Reason/Comments: cellulitis Do you want consulting provider notified?: Yes Primary care physician: Tina Quesada Hospital Course: Discharge diagnosis 1. Generalized weakness with frequent falls and physical debility 2. Bilateral lower extremity cellulitis, with multiple ulcers and failed outpatient treatment 3. History of essential hypertension 4. Diabetes mellitus type 2 5. History of hypothyroidism 6. Anemia with evidence of iron deficiency Hospital course Shiloh Hampton is a 76-year-old female patient of Dr. Quesada who presented with concerns of weakness and frequent falls. Patient is a poor historian. According to ER records per patient's patient has been having increased falls over the past 1-2 weeks. Patient denies any recent illness. Patient does have a past medical history of, urinary incontinence and cognitive disorder. Head CT was performed in ER showing no change compared to old exam no acute intracranial abnormality. Thoracic and lumbar x-ray completed showing multilevel thoracic and spondylitic changes. Sclerotic deformity no fracture seen lumbar spine is stable compared to old exam. Degenerative mild first- degree L4 to L5 spondylolithiasis. Chest x-ray completed showing mild cardiomegaly no pulmonary fibrosis no change compared to old exam. Pelvis x-ray completed showing osteopenia no fracture seen. UA negative. Patient does have open wounds to lower extremities. Will consult wound care. Patient denies chest pain or shortness of breath. Patient denies nausea vomiting or diarrhea. Patient denies any urinary burning or frequency. Will consult PT OT and social work services for possible rehab placement On 06/09/2022 patient was seen and examined on the medical floor, She is alert and oriented 3 in no apparent distress, she is still complaining of bilateral lower extremity erythema pain and tenderness otherwise she denies any complaints there is no fever or chills no headache or dizziness no chest pain no shortness of breath no cough no nausea or vomiting no abdominal pain no diarrhea and no urinary symptoms. Patient is still very weak and having difficulty standing and walking On 06/10/2022 patient is alert and oriented 3. Discussed case with infectious disease Dr. patient may be discharged on Keflex for 10 days. Patient to be DC'd [facility] facility wound care services orders to continue Silvadene with Kerlix and Lake wraps changed daily. At this time patient denies chest pain or shortness of breath. Patient denies nausea vomiting or diarrhea. Patient denies any urinary burning or frequency Patient Condition at Discharge: Stable Plan - Discharge Summary Discharge Rx Participant: No New Discharge Prescriptions: New INSULIN ASPART (NovoLOG) [NovoLOG (formulary)] 0 unit SQ ACHS each Cephalexin [Keflex] 500 mg PO Q6HR 10 Days #40 cap Continue Pioglitazone [Actos] 45 mg PO DAILY Simvastatin [Zocor] 20 mg PO HS Insulin Glargine,Hum.rec.anlog [Lantus Solostar Pen] 33 unit SQ DAILY buPROPion HCL [Wellbutrin SR] 200 mg PO BID FLUoxetine HCL [PROzac] 40 mg PO DAILY glipiZIDE [Glucotrol] 10 mg PO BID Memantine [Namenda] 10 mg PO BID Mirabegron [Myrbetriq] 50 mg PO DAILY Losartan Potassium [Cozaar] 100 mg PO DAILY Levothyroxine Sodium [Synthroid] 125 mcg PO DAILY Furosemide [Lasix] 40 mg PO BID Methenamine Hippurate 1 gm PO BID carvediloL [Coreg] 6.25 mg PO BID 30 Days #60 tablet Iron(Unknown) 1 tab PO DAILY SILVER sulfADIAZINE CREAM [Silvadene Cream] 1 applic TOPICAL DAILY Discontinued Fluconazole [Diflucan] 200 mg PO DAILY Fluconazole 200 mg PO DAILY Doxycycline Hyclate 100 mg PO Q12H Doxycycline Hyclate 100 mg PO BID Discharge Medication List Insulin Glargine,Hum.rec.anlog [Lantus Solostar Pen] 33 unit SQ DAILY 06/21/18 [History] Pioglitazone [Actos] 45 mg PO DAILY 06/21/18 [History] Simvastatin [Zocor] 20 mg PO HS 06/21/18 [History] FLUoxetine HCL [PROzac] 40 mg PO DAILY 02/20/20 [History] Memantine [Namenda] 10 mg PO BID 02/20/20 [History] buPROPion HCL [Wellbutrin SR] 200 mg PO BID 02/20/20 [History] glipiZIDE [Glucotrol] 10 mg PO BID 02/20/20 [History] Furosemide [Lasix] 40 mg PO BID 06/12/21 [History] Levothyroxine Sodium [Synthroid] 125 mcg PO DAILY 06/12/21 [History] Losartan Potassium [Cozaar] 100 mg PO DAILY 06/12/21 [History] Mirabegron [Myrbetriq] 50 mg PO DAILY 06/12/21 [History] Methenamine Hippurate 1 gm PO BID 10/06/21 [History] carvediloL [Coreg] 6.25 mg PO BID 30 Days #60 tablet 10/11/21 [Rx] Iron(Unknown) 1 tab PO DAILY 06/07/22 [History] SILVER sulfADIAZINE CREAM [Silvadene Cream] 1 applic TOPICAL DAILY 06/08/22 [History] Cephalexin [Keflex] 500 mg PO Q6HR 10 Days #40 cap 06/10/22 [Rx] INSULIN ASPART (NovoLOG) [NovoLOG (formulary)] 0 unit SQ ACHS each 06/10/22 [Rx] Follow up Appointment(s)/Referral(s): Tina Quesada MD [Primary Care Provider] - 1-2 days Activity/Diet/Wound Care/Special Instructions: Activity as tolerated Diet heart healthy Wound care team orders apply Silvadene wrapped with Kerlix and Lake wrap change daily Discharge Disposition: TRANSFER TO SNF/ECF
[2022-06-10 11:45] VITALS: BP 149/78; PULSE 85; RESP 18; TEMP 99.1
[2022-06-10 12:02] LABS: Glucose,Whole Blood 231 mg/dL (70-110)
== END 2022-06-10 16:42 | DRG 603 ==
LOC: EC 12:20 → 5NMEDONC 18:16
PROVIDERS: ADMIT Internal Medicine; ATTEND Internal Medicine
DX: L03.115 Cellulitis of right lower limb (principal); L97.811 Non-pressure chronic ulcer of other part of right lower leg limited to breakdown of skin; L97.821 Non-pressure chronic ulcer of other part of left lower leg limited to breakdown of skin; L03.116 Cellulitis of left lower limb; M85.80 Other specified disorders of bone density and structure, unspecified site; R29.6 Repeated falls; D50.9 Iron deficiency anemia, unspecified; E03.9 Hypothyroidism, unspecified; E11.622 Type 2 diabetes mellitus with other skin ulcer; I10 Essential (primary) hypertension; J84.10 Pulmonary fibrosis, unspecified; R32 Unspecified urinary incontinence; Z79.84 Long term (current) use of oral hypoglycemic drugs; Z79.890 Hormone replacement therapy; Z79.899 Other long term (current) drug therapy; Z87.891 Personal history of nicotine dependence; Z28.21 Immunization not carried out because of patient refusal; S80.822A Blister (nonthermal), left lower leg, initial encounter; S80.821A Blister (nonthermal), right lower leg, initial encounter; Z71.3 Dietary counseling and surveillance; Z28.311 Partially vaccinated for COVID-19; Z88.2 Allergy status to sulfonamides; Z88.8 Allergy status to other drugs, medicaments and biological substances; Z91.040 Latex allergy status; Z79.4 Long term (current) use of insulin; Z91.81 History of falling
CPT/HCPCS: 36415; 70450; 71045; 72125; 72128; 72131; 72170; 80048; 80053; 81001; 82607; 82728; 82747; 83036; 83540; 83550; 84443; 84484; 85025; 87635; 93005